=== PATIENT | female | born 1955 | race American Indian/Alaskan Native ===

== ENCOUNTER 2017-01-19 00:15 | Inpatient (IN) | payer MEDICAID, OTHER ==
[2017-01-19] MEDS ORDERED: DILAUDID IV ONE ×2 (01:16→03:03)
[2017-01-19] MEDS ORDERED: PROVENTIL IH ONE ×2 (01:23→06:13)
[2017-01-19] MEDS ORDERED: DILAUDID ONE (01:24)
[2017-01-19] MEDS ORDERED: ATROVENT IH ONE (01:24)
[2017-01-19 02:24] LABS: Basophils % (Auto) 0.4 % (0.0-1.8); Eosinophils % (Auto) 0.3 % (0.0-4.3); Hemoglobin 13.4 gm/dl (10.1-14.3); Mean Corpuscular HGB Conc 33 % (30-34); Mean Corpuscular Hemoglobin 29 pg (28-32); Mean Corpuscular Volume 88 fl (79-97); Platelet Count 209 K/mm3 (140-440); Red Blood Count 4.66 M/mm3 (3.65-5.03); Red Cell Distribution Width 14.7 % (13.2-15.2); White Blood Count 9.9 K/mm3 (4.5-11.0)
[2017-01-19 02:30] LABS: Alanine Aminotransferase 11 units/L (7-56); Albumin 4.4 g/dL (3.9-5); Albumin/Globulin Ratio 1.5 %; Alkaline Phosphatase 101 units/L (35-129); Anion Gap 17 mmol/L; BUN/Creatinine Ratio 17.14; Blood Urea Nitrogen 12 mg/dL (7-17); Calcium 8.9 mg/dL (8.4-10.2); Carbon Dioxide 23 mmol/L (22-30); Chloride 102.5 mmol/L (98-107); Glucose 142 mg/dL (65-100); Sodium 138 mmol/L (137-145); Total Protein 7.3 g/dL (6.3-8.2)
--- NOTE | 2017-01-19 03:25 | Emergency Department Report ---
ED General Adult HPI - General Chief complaint: Pain General Stated complaint: LEG AND BACK PAIN Time Seen by Provider: 01/19/17 01:16 Source: patient, family, EMS Mode of arrival: Stretcher Limitations: No Limitations - History of Present Illness Initial comments: Patient is a 62-year-old female who presents with severe shortness of breath. Patient states that her shortness of breath has occurred when she had some right lower quadrant pain that occurred one day ago. Patient states her right lower quadrant pain as a 10 out of 10 nothing makes it better nothing makes it worse. It says severe achy pain that goes throughout her stomach. Patient denies having any nausea or vomiting. Patient also states that she has end- stage COPD and is chronically on oxygen. She states that her shortness of breath is gone a lot worse today. Severity scale (0 -10): 10 - Related Data Home Medications Medication Instructions Recorded Confirmed Last Taken Cozaar 25 mg PO DAILY 07/14/15 07/14/15 01/18/17 Keppra TAB 1,000 mg PO BID 07/14/15 07/14/15 01/18/17 Nitrostat 0.4 mg SL Q5M PRN 07/14/15 07/14/15 Unknown Pepcid 20 mg PO DAILY 07/14/15 07/14/15 01/18/17 Percocet 10/325 mg 10 - 325 mg PO Q8H PRN 07/14/15 07/14/15 01/18/17 Prednisone 10 mg PO 07/14/15 Unknown ProAir HFA Inhaler 2 inh INHALATION QID PRN 07/14/15 07/14/15 01/18/17 SEROquel 200 mg PO HS 07/14/15 07/14/15 01/18/17 Symbicort 160-4.5 (Nf) 1 inh INHALATION BID 07/14/15 07/14/15 01/18/17 metFORMIN [Glucophage] 500 mg PO BID 07/14/15 07/14/15 01/18/17 Previous Rx's Medication Instructions Recorded Last Taken Type ALBUTEROL Inhaler [Proair] 1 puff IH BID PRN #1 inha 07/15/15 01/18/17 Rx Albuterol Sulfate [Albuterol 0.63% 0.63 mg IH TID PRN #1 box 07/15/15 01/18/17 Rx NEBS] Azithromycin [Zithromax TAB] 250 mg PO QDAY #6 tablet 07/15/15 Unknown Rx Ipratropium [Atrovent NEB] 0.5 mg IH Q8HRT PRN #1 box 07/15/15 01/18/17 Rx Nebulizer Accessories [Aeroneb Go] 1 each MC DAILY PRN #1 each 07/15/15 Rx Prednisone [predniSONE 10 mg 10 mg PO .TAPER #1 tab.ds.pk 07/15/15 01/18/17 Rx (6-Day Pack, 21 Tabs)] Allergies Allergy/AdvReac Type Severity Reaction Status Date / Time metronidazole [From Flagyl] Allergy Rash Verified 01/19/17 01:18 ED Review of Systems ROS: Stated complaint: LEG AND BACK PAIN Other details as noted in HPI Constitutional: denies: chills, fever Eyes: denies: eye pain, eye discharge, vision change ENT: denies: ear pain, throat pain Respiratory: shortness of breath. denies: cough, wheezing Cardiovascular: denies: chest pain, palpitations Endocrine: no symptoms reported Gastrointestinal: abdominal pain. denies: nausea, diarrhea Genitourinary: denies: urgency, dysuria, discharge Musculoskeletal: denies: back pain, joint swelling, arthralgia Skin: denies: rash, lesions Neurological: denies: headache, weakness, paresthesias Psychiatric: denies: anxiety, depression Hematological/Lymphatic: denies: easy bleeding, easy bruising ED Past Medical Hx - Past Medical History Previous Medical History?: Yes Hx Hypertension: Yes Hx Heart Attack/AMI: Yes Hx Congestive Heart Failure: Yes Hx Diabetes: Yes Hx Deep Vein Thrombosis: Yes Hx Pulmonary Embolism: No Hx Renal Disease: No Hx Seizures: Yes Hx Kidney Stones: No Hx Asthma: Yes Hx COPD: Yes Hx Tuberculosis: No Hx Dementia: No Hx HIV: No - Surgical History Hx Coronary Stent: No Hx Open Heart Surgery: No Hx Pacemaker: No Hx Internal Defibrillator: No Hx Cholecystectomy: No Hx Appendectomy: No Hx Breast Surgery: No Additional Surgical History: Hysterectomy, R mastectomy with implant, Lumbar spine surgery, chronic pain managment - Social History Smoking Status: Never Smoker Substance Use Type: None - Medications Home Medications: Home Medications Medication Instructions Recorded Confirmed Last Taken Type Cozaar 25 mg PO DAILY 07/14/15 07/14/15 01/18/17 History Keppra TAB 1,000 mg PO BID 07/14/15 07/14/15 01/18/17 History Nitrostat 0.4 mg SL Q5M PRN 07/14/15 07/14/15 Unknown History Pepcid 20 mg PO DAILY 07/14/15 07/14/15 01/18/17 History Percocet 10/325 mg 10 - 325 mg PO Q8H PRN 07/14/15 07/14/15 01/18/17 History Prednisone 10 mg PO 07/14/15 Unknown History ProAir HFA Inhaler 2 inh INHALATION QID PRN 07/14/15 07/14/15 01/18/17 History SEROquel 200 mg PO HS 07/14/15 07/14/15 01/18/17 History Symbicort 160-4.5 (Nf) 1 inh INHALATION BID 07/14/15 07/14/15 01/18/17 History metFORMIN [Glucophage] 500 mg PO BID 07/14/15 07/14/15 01/18/17 History ALBUTEROL Inhaler [Proair] 1 puff IH BID PRN #1 inha 07/15/15 01/18/17 Rx Albuterol Sulfate [Albuterol 0.63% 0.63 mg IH TID PRN #1 box 07/15/15 01/18/17 Rx NEBS] Azithromycin [Zithromax TAB] 250 mg PO QDAY #6 tablet 07/15/15 Unknown Rx Ipratropium [Atrovent NEB] 0.5 mg IH Q8HRT PRN #1 box 07/15/15 01/18/17 Rx Nebulizer Accessories [Aeroneb Go] 1 each MC DAILY PRN #1 each 07/15/15 Rx Prednisone [predniSONE 10 mg 10 mg PO .TAPER #1 tab.ds.pk 07/15/15 01/18/17 Rx (6-Day Pack, 21 Tabs)] ED Physical Exam - General Limitations: No Limitations General appearance: alert, in no apparent distress - Head Head exam: Present: atraumatic, normocephalic - Eye Eye exam: Present: normal appearance - ENT ENT exam: Present: mucous membranes moist - Neck Neck exam: Present: normal inspection - Respiratory Respiratory exam: Present: wheezes. Absent: respiratory distress - Cardiovascular Cardiovascular Exam: Present: regular rate, normal rhythm. Absent: systolic murmur, diastolic murmur, rubs, gallop - GI/Abdominal GI/Abdominal exam: Present: soft, normal bowel sounds - Extremities Exam Extremities exam: Present: normal inspection - Back Exam Back exam: Present: normal inspection - Neurological Exam Neurological exam: Present: alert, oriented X3 - Psychiatric Psychiatric exam: Present: normal affect, normal mood - Skin Skin exam: Present: warm, dry, intact, normal color. Absent: rash ED Course Vital Signs 01/19/17 01/19/17 01/19/17 01:06 01:10 01:38 Temperature 98.2 F Pulse Rate 87 Pulse Rate [ 95 H Bilateral Throughout] Respiratory 20 Rate Respiratory 15 Rate [Bilateral Throughout] Blood Pressure 168/87 Blood Pressure 168/87 [Left] O2 Sat by Pulse 100 100 Oximetry 01/19/17 03:26 Temperature Pulse Rate 80 Pulse Rate [ Bilateral Throughout] Respiratory 20 Rate Respiratory Rate [Bilateral Throughout] Blood Pressure Blood Pressure 156/90 [Left] O2 Sat by Pulse 100 Oximetry - Reevaluation(s) Reevaluation #1: 01/19/17 05:50 Patient still states that she is in severe pain the patient IV pain medication and I'll admit patient to the hospital. ED Medical Decision Making - Lab Data Result diagrams: 01/19/17 01:54 01/19/17 01:54 Lab Results 01/19/17 01/19/17 01/19/17 Range/Units 01:54 01:54 Unknown WBC 9.9 (4.5-11.0) K/mm3 RBC 4.66 (3.65-5.03) M/mm3 Hgb 13.4 (10.1-14.3) gm/dl Hct 41.0 (30.3-42.9) % MCV 88 (79-97) fl MCH 29 (28-32) pg MCHC 33 (30-34) % RDW 14.7 (13.2-15.2) % Plt Count 209 (140-440) K/mm3 Lymph % (Auto) 12.7 L (13.4-35.0) % [place] % (Auto) 2.5 (0.0-7.3) % Eos % (Auto) 0.3 (0.0-4.3) % Baso % (Auto) 0.4 (0.0-1.8) % Lymph # 1.3 (1.2-5.4) K/mm3 [place] # 0.3 (0.0-0.8) K/mm3 Eos # 0.0 (0.0-0.4) K/mm3 Baso # 0.0 (0.0-0.1) K/mm3 Seg Neutrophils % 84.1 H (40.0-70.0) % Seg Neutrophils # 8.3 H (1.8-7.7) K/mm3 Sodium 138 (137-145) mmol/L Potassium 4.0 (3.6-5.0) mmol/L Chloride 102.5 (98-107) mmol/L Carbon Dioxide 23 (22-30) mmol/L Anion Gap 17 mmol/L BUN 12 (7-17) mg/dL Creatinine 0.7 (0.7-1.2) mg/dL Estimated GFR > 60 ml/min BUN/Creatinine Ratio 17.14 % Glucose 142 H (65-100) mg/dL Calcium 8.9 (8.4-10.2) mg/dL Total Bilirubin 0.50 (0.1-1.2) mg/dL AST 10 (5-40) units/L ALT 11 (7-56) units/L Alkaline Phosphatase 101 (35-129) units/L Total Protein 7.3 (6.3-8.2) g/dL Albumin 4.4 (3.9-5) g/dL Albumin/Globulin Ratio 1.5 % Urine Color Straw (Yellow) Urine Turbidity Clear (Clear) Urine pH 6.0 (5.0-7.0) Ur Specific [place] 1.011 (1.003-1.030) Urine Protein <15 mg/dl (Negative) mg/dL Urine Glucose (UA) Neg (Negative) mg/dL Urine Ketones Neg (Negative) mg/dL Urine Blood Neg (Negative) Urine Nitrite Neg (Negative) Urine Bilirubin Neg (Negative) Urine Urobilinogen < 2.0 (<2.0) mg/dL Ur Leukocyte Esterase Neg (Negative) Urine WBC (Auto) < 1.0 (0.0-6.0) /HPF Urine RBC (Auto) < 1.0 (0.0-6.0) /HPF Urine Mucus Few /HPF - Radiology Data Radiology results: report reviewed, image reviewed CT abdomen and pelvis: Shows no acute intra-abdominal pathology. - Medical Decision Making Chief medical diagnosis: COPD exacerbation Differential diagnosis: Appendicitis, pancreatitis, metabolic abnormality I will get CT scan of abdomen and pelvis, IV pain medication, breathing treatment, steroids, chest x-ray and I will admit patient to the medicine service Symptoms clinical findings show severe pain of the abdomen with no cause. CT scan of abdomen is unremarkable. Patient also has severe shortness of breath. Will admit patient for COPD exacerbation. Discussed plan with patient they agree with plan. Critical care attestation.: If time is entered above; I have spent that time in minutes in the direct care of this critically ill patient, excluding procedure time. ED Disposition Clinical Impression: COPD exacerbation, Drug-seeking behavior Abdominal pain Qualifiers: Abdominal location: right lower quadrant Qualified Code(s): R10.31 - Right lower quadrant pain HTN (hypertension) Qualifiers: Hypertension type: essential hypertension Qualified Code(s): I10 - Essential ( primary) hypertension Diabetes mellitus, type 2 Qualifiers: Diabetes mellitus complication status: without complication Diabetes mellitus intermediate teacher insulin use: unspecified long-term insulin use status Qualified Code(s ): E11.9 - Type 2 diabetes mellitus without complications Disposition: OP ADMIT IP TO THIS HOSP Is pt being admited?: No Does the pt Need Aspirin: No Condition: Stable Instructions: Diabetes Mellitus Type 2 in Adults (ED), Chronic Obstructive Pulmonary Disease (ED), Hypertension (ED) Referrals: PRIMARY CARE, [Primary Care Provider] - 3-5 Days
[2017-01-19] MEDS ORDERED: NACL ONE (03:56)
[2017-01-19 04:59] LABS: Bilirubin,Urine NEG (Negative); Blood,Urine NEG (Negative); Ketones,Urine NEG (Negative); Leukocyte Esterase,Urine NEG (Negative); Mucus,Urine FEW /HPF; Nitrite,Urine NEG (Negative); Protein,Urine <15 mg/dL mg/dL (Negative); RBC,Urine < 1.0 /HPF (0.0-6.0); Urobilinogen,Urine < 2.0 mg/dL (<2.0)
[2017-01-19 05:01] LABS: WBC,Urine < 1.0 /HPF (0.0-6.0)
--- NOTE | 2017-01-19 05:20 | Cat Scan Report ---
FINAL REPORT PROCEDURE: CT ABDOMEN PELVIS W CON TECHNIQUE: Computerized axial tomography of the abdomen and pelvis was performed after the IV injection of iodinated nonionic contrast. HISTORY: RLQ abd pain COMPARISON: No prior studies are available for comparison. FINDINGS: Visualized lower thorax: No significant abnormality. Liver: Normal size and attenuation. Spleen: Normal size and attenuation. Gallbladder and biliary system: Normal. Pancreas: Normal. Adrenals: Normal. Kidneys: Both kidneys have a normal size. There is a 1 centimeter cyst on the anterior left renal cortex. No hydronephrosis. No renal stones.. GI tract: No obstruction. No ileus or enteritis. The cecum, appendix region and colon are normal.. Lymph nodes and mesentery: Normal. Vasculature: Normal. Bladder: Normal. Reproductive organs: No pelvic masses.. Peritoneum: Minimal fluid in the lower pelvis.. Musculoskeletal structures: No significant abnormality. Other: None. IMPRESSION: There is no evidence of intestinal or urinary tract obstruction. No ileus or enteritis.
[2017-01-19] MEDS ORDERED: ZOFRAN IV PRN (06:16)
[2017-01-19] MEDS ORDERED: MILK OF MAGNESIA PO PRN (06:16)
[2017-01-19] MEDS ORDERED: DULCOLAX PR PRN (06:16)
[2017-01-19] MEDS ORDERED: PERCOCET 5/325 PO PRN (06:16)
[2017-01-19] MEDS ORDERED: TYLENOL PO PRN (06:16)
--- NOTE | 2017-01-19 06:24 | History and Physical Report ---
History of Present Illness Date of examination: 01/19/17 History of present illness: 62-year-old with a history of hypertension, diabetes, seizures, COPD comes to the emergency room with complaints of shortness of breath. She ran out of her oxygen, also complaining of a cough productive of white phlegm. She also complained of pain in the right groin area which started yesterday described as a crampy sensation, intermittent in nature lasting for 2 hours, intensity 6/10, no radiation and she cannot identify any exacerbating factors. The patient has a history of breast cancer and has been off hospice for 1 month now Review Of Systems: Constitutional: no weight loss Ears, eyes, nose, mouth and throat: no nasal congestion, no nasal discharge, no sinus pressure, blurry vision, diplopia Neck: No neck pain or rigidity. Cardiovascular: chest pain, orthopnea, palpitations Respiratory: No shortness of breath, cough Gastrointestinal: abdominal pain, hematochezia Genitourinary : no dysuria, frequency , hematuria Musculoskeletal: no muscle ache Integumentary: no rash, no pruritis Neurological: no parathesias, focal weakness Endocrine: no cold or heat intolerance, no polyuria or polydipsia Hematologic/Lymphatic: no easy bruising, no easy bleeding, no gland swelling Allergic/Immunologic: no urticaria, no angioedema. PAST MEDICAL HISTORY:hypertension, diabetes, seizures, COPD PAST SURGICAL HISTORY: Right mastectomy with reconstruction, laminectomy, hysterectomy FAMILY HISTORY: Hypertension SOCIAL HISTORY: Denies alcohol, tobacco, drugs Medications and Allergies Allergies Allergy/AdvReac Type Severity Reaction Status Date / Time metronidazole [From Flagyl] Allergy Rash Verified 01/19/17 01:18 Home Medications Medication Instructions Recorded Confirmed Last Taken Type Cozaar 25 mg PO DAILY 07/14/15 07/14/15 01/18/17 History Keppra TAB 1,000 mg PO BID 07/14/15 07/14/15 01/18/17 History Nitrostat 0.4 mg SL Q5M PRN 07/14/15 07/14/15 Unknown History Pepcid 20 mg PO DAILY 07/14/15 07/14/15 01/18/17 History Percocet 10/325 mg 10 - 325 mg PO Q8H PRN 07/14/15 07/14/15 01/18/17 History Prednisone 10 mg PO 07/14/15 Unknown History ProAir HFA Inhaler 2 inh INHALATION QID PRN 07/14/15 07/14/15 01/18/17 History SEROquel 200 mg PO HS 07/14/15 07/14/15 01/18/17 History Symbicort 160-4.5 (Nf) 1 inh INHALATION BID 07/14/15 07/14/15 01/18/17 History metFORMIN [Glucophage] 500 mg PO BID 07/14/15 07/14/15 01/18/17 History ALBUTEROL Inhaler [Proair] 1 puff IH BID PRN #1 inha 07/15/15 01/18/17 Rx Albuterol Sulfate [Albuterol 0.63% 0.63 mg IH TID PRN #1 box 07/15/15 01/18/17 Rx NEBS] Azithromycin [Zithromax TAB] 250 mg PO QDAY #6 tablet 07/15/15 Unknown Rx Ipratropium [Atrovent NEB] 0.5 mg IH Q8HRT PRN #1 box 07/15/15 01/18/17 Rx Nebulizer Accessories [Aeroneb Go] 1 each MC DAILY PRN #1 each 07/15/15 Rx Prednisone [predniSONE 10 mg 10 mg PO .TAPER #1 tab.ds.pk 07/15/15 01/18/17 Rx (6-Day Pack, 21 Tabs)] Exam - Physical Exam Narrative exam: Gen. appearance: Patient lying in bed in no acute distress HEENT: Normocephalic/atraumatic, pupils equal round reactive to light, extra alkaline movement intact, no scleral icterus, no JVD or thyromegaly or nodule, neck is supple, mucous membrane moist, no erythema or exudate Heart: S1-S2, regular rate and rhythm Lungs: Wheezing bilateral breathing comfortable Abdomen: Positive bowel sounds, nontender, nondistended, no organomegaly Extremities: No edema, cyanosis, clubbing Neuro:: Oriented 3 , cranial nerves II-12 intact, speech, motor intact Skin: No rash, nodules, warm dry - Constitutional Vitals: Temp Pulse Resp BP Pulse Ox 98.2 F 108 H 22 145/80 100 01/19/17 01:06 01/19/17 06:18 01/19/17 06:18 01/19/17 06:18 01/19/17 06:18 Results - Labs CBC & Chem 7: 01/19/17 01:54 01/19/17 01:54 Labs: Abnormal lab results 01/19/17 01/19/17 Range/Units 01:54 01:54 Lymph % (Auto) 12.7 L (13.4-35.0) % Seg Neutrophils % 84.1 H (40.0-70.0) % Seg Neutrophils # 8.3 H (1.8-7.7) K/mm3 Glucose 142 H (65-100) mg/dL - Imaging and Cardiology CT scan - abdomen: report reviewed CT scan - pelvis: report reviewed Assessment and Plan Assessment COPD exacerbation Right groin pain, NOS Hypertension Seizure Diabetes History of breast cancer Plan Admit to medicine Start high-dose IV steroids, nebulizer treatments, Percocet Check fingersticks and initiate insulin sliding scale, continue appropriate outpatient medications, start DVT prophylaxis
[2017-01-19] MEDS ORDERED: D50W (25GM) Syringe IV PRN (06:27)
--- NOTE | 2017-01-19 07:19 | XRay Report ---
AP CHEST: HISTORY: Shortness of breath AP view of the chest demonstrates a normal mediastinal and cardiac contour with clear lungs and normal bony and soft tissue structures. IMPRESSION: No acute cardiopulmonary process identified.
--- NOTE | 2017-01-19 07:29 | Admit Criteria Form ---
Admission Criteria Documentation: COPD Clinical Indications for Admission to Inpatient Care ([place]/ check or initial the applicable condition/criteria) Admission is indicated for ANY ONE of the following (1)(2)(3): [ ]I. Acute exacerbation by high-risk comorbidity(e.g., pneumonia, dysrhythmia, heart failure, pleural effusion, pneumothorax) or severe underlying COPD (eg, baseline FEV1 less than 50% predicted) [X ]II. Inpatient admission required[A] rather than observation care (see Chronic Obstructive Pulmonary Disease: Observation Care) because of ANY ONE of the following: [X ]a) New or pre-existing signs or symptoms of COPD (eg, dyspnea or Tachypnea at rest or with minimal activity) that persist despite outpatient and observation care treatment [ ]b) New-onset hypoxemia (room air SaO2 less than 90%, PO2 less than 60 mm Hg (8.0 kPa)) that persists despite outpatient and observation care treatment [ ]c) Worsening of pre-existing hypoxemia (eg, new or increased requirement for supplemental oxygen to maintain oxygenation at baseline level) that persists despite outpatient and observation care treatment, with oxygen treatment needs performable only in acute inpatient setting [ ]d) Hypercarbia (PCO2 greater than 40 mm Hg (5.3 kPa))-induced respiratory acidosis (pH less than 7.35) that persists despite outpatient and observation care treatment [ ]e) Supplemental oxygen or respiratory treatments for over 24 hours that are performable only in acute inpatient setting [ ]f) Chest tube placement with active evacuation (e.g., suction, drainage) (6) [ ]g) Other condition, treatment or monitoring requiring inpatient admission [ ]III. Planned invasive surgical or diagnostic procedures requiring acute- care hospitalization [ ]IV. Acute respiratory failure (e.g., uncompensated hypercarbia, severe hypoxemia) [ ]V. Severe comorbid condition (e.g., severe steroid myopathy, acute vertebral fracture) that has acutely worsened pulmonary function [ ]. Altered mental status that is severe or persistent Extended stay beyond goal length of stay may be needed for (29)(30)(31)(32)(33) : [ ]a ) Respiratory Failure. [ ]b) Severe or persisting hypoxemia or hypercarbia [ ]c) Severe or persistent dyspnea [ ]d) Clinically significant Comorbidities (e.g. chronic heart failure, atrial fibrillation with rapid response, pneumonia)(36) [ ]e) Malnutrition (33) The original [email or web address] content created by [email or web address] has been revised. The portions of the content which have been revised are identified through the use of italic text or in bold, and [facility] has neither reviewed nor approved the modified material. All other unmodified content is copyright [email or web address]. Please see references footnoted in the original [facility] edition 2017 Admission Criteria Met: Yes
[2017-01-19] MEDS: NOVOLOG SUB-Q SCH ×4 (08:10→22:44)
[2017-01-19] MEDS: DUONEB *Not for PRN Use IH SCH ×4 (08:56→20:19)
[2017-01-19] MEDS ORDERED: LOVENOX SUB-Q SCH (10:00)
[2017-01-19] MEDS: LOVENOX SUB-Q SCH (10:25)
[2017-01-19] MEDS: PERCOCET 5/325 PO PRN ×2 (12:45→21:09)
[2017-01-19] MEDS ORDERED: PROVENTIL IH PRN (13:07)
--- NOTE | 2017-01-19 14:59 | Event Note ---
Date: 01/19/17 Patient was seen and evaluated this morning, she is admitted for COPD exacerbation and right groin pain. CT abdomen and pelvis is unremarkable. Continue with the current management.
[2017-01-19] MEDS ORDERED: DUONEB *Not for PRN Use IH SCH (20:00)
[2017-01-19] MEDS ORDERED: BENADRYL IV ONE (21:42)
[2017-01-20] MEDS: DUONEB *Not for PRN Use IH SCH ×5 (00:16→20:43)
[2017-01-20] MEDS: PERCOCET 5/325 PO PRN ×4 (02:43→21:25)
[2017-01-20 04:51] LABS: Hematocrit 38.1 % (30.3-42.9); Hemoglobin 12.5 gm/dl (10.1-14.3); Mean Corpuscular HGB Conc 33 % (30-34); Mean Corpuscular Hemoglobin 29 pg (28-32); Mean Corpuscular Volume 88 fl (79-97); Platelet Count 213 K/mm3 (140-440); Red Blood Count 4.34 M/mm3 (3.65-5.03); Red Cell Distribution Width 14.2 % (13.2-15.2); White Blood Count 11.2 K/mm3 (4.5-11.0)
[2017-01-20 04:54] LABS: Anion Gap 20 mmol/L; BUN/Creatinine Ratio 17.14; Blood Urea Nitrogen 12 mg/dL (7-17); Calcium 8.7 mg/dL (8.4-10.2); Carbon Dioxide 22 mmol/L (22-30); Chloride 101.8 mmol/L (98-107); Glucose 333 mg/dL (65-100); Potassium 3.7 mmol/L (3.6-5.0); Sodium 140 mmol/L (137-145)
[2017-01-20] MEDS: NOVOLOG SUB-Q SCH ×3 (06:45→22:00)
[2017-01-20 06:58] LABS: Basophils % (Manual) 0 % (0.0-1.8); Blastocytes % (Manual) 0 %; Eosinophils % (Manual) 0 % (0.0-4.3); Total Cells Counted Percent 0
[2017-01-20 06:59] LABS: Anisocytosis Few; Diff Status Complete; Hypochromasia 1+; Ovalocytes Few
[2017-01-20] MEDS: LOVENOX SUB-Q SCH (09:23)
--- NOTE | 2017-01-20 11:45 | Progress Note ---
Assessment and Plan Assessment and plan: Acute COPD exacerbation. Continue IV steroids, nebulizer treatments Right groin pain. Resolved. CT scan abdomen and pelvis negative. Hypertension. Continue antihypertensive medications. Cozaar daily. Seizure disorder. Resume Keppra daily. Diabetes mellitus type II. Residual metformin and continue sliding-scale insulin. History of breast cancer. History Interval history: Patient with dyspnea on minimal exertion. Hospitalist Physical - Constitutional Vitals: Temp Pulse Resp BP Pulse Ox 98.0 F 112 H 24 136/72 98 01/20/17 08:29 01/20/17 08:29 01/20/17 08:29 01/20/17 08:29 01/20/17 08:58 General appearance: Present: no acute distress, well-nourished - EENT Eyes: Present: PERRL, EOM intact ENT: hearing intact, clear oral mucosa, dentition normal - Neck Neck: Present: supple, normal ROM - Respiratory Respiratory effort: normal Respiratory: bilateral: diminished, rhonchi, wheezing - Cardiovascular Rhythm: regular Heart Sounds: Present: S1 & S2. Absent: gallop, rub - Extremities Extremities: no ischemia, No edema, Full ROM - Abdominal General gastrointestinal: soft, non-tender, non-distended, normal bowel sounds - Integumentary Integumentary: Present: clear, warm, dry - Neurologic Neurologic: CNII-XII intact, moves all extremities Results - Labs CBC & Chem 7: 01/20/17 04:18 01/20/17 04:18 Labs: Laboratory Last Values WBC 11.2 K/mm3 (4.5-11.0) H 01/20/17 04:18 RBC 4.34 M/mm3 (3.65-5.03) 01/20/17 04:18 Hgb 12.5 gm/dl (10.1-14.3) 01/20/17 04:18 Hct 38.1 % (30.3-42.9) 01/20/17 04:18 MCV 88 fl (79-97) 01/20/17 04:18 MCH 29 pg (28-32) 01/20/17 04:18 MCHC 33 % (30-34) 01/20/17 04:18 RDW 14.2 % (13.2-15.2) 01/20/17 04:18 Plt Count 213 K/mm3 (140-440) 01/20/17 04:18 Lymph % (Auto) 12.7 % (13.4-35.0) L 01/19/17 01:54 Howard % (Auto) 2.5 % (0.0-7.3) 01/19/17 01:54 Eos % (Auto) 0.3 % (0.0-4.3) 01/19/17 01:54 Baso % (Auto) 0.4 % (0.0-1.8) 01/19/17 01:54 Lymph # 1.3 K/mm3 (1.2-5.4) 01/19/17 01:54 Howard # 0.3 K/mm3 (0.0-0.8) 01/19/17 01:54 Eos # 0.0 K/mm3 (0.0-0.4) 01/19/17 01:54 Baso # 0.0 K/mm3 (0.0-0.1) 01/19/17 01:54 Add Manual Diff Complete 01/20/17 04:18 Total Counted 100 01/20/17 04:18 Seg Neutrophils % Electrician Station Assistant 01/20/17 04:18 Seg Neuts % (Manual) 68.0 % (40.0-70.0) 01/20/17 04:18 Band Neutrophils % 26.0 % 01/20/17 04:18 Lymphocytes % (Manual) 6.0 % (13.4-35.0) L 01/20/17 04:18 Reactive Lymphs % (Man) 0 % 01/20/17 04:18 Monocytes % (Manual) 0 % (0.0-7.3) 01/20/17 04:18 Eosinophils % (Manual) 0 % (0.0-4.3) 01/20/17 04:18 Basophils % (Manual) 0 % (0.0-1.8) 01/20/17 04:18 Metamyelocytes % 0 % 01/20/17 04:18 Myelocytes % 0 % 01/20/17 04:18 Promyelocytes % 0 % 01/20/17 04:18 Blast Cells % 0 % 01/20/17 04:18 Nucleated RBC % Not Reportable 01/20/17 04:18 Seg Neutrophils # 8.3 K/mm3 (1.8-7.7) H 01/19/17 01:54 Seg Neutrophils # Man 7.6 K/mm3 (1.8-7.7) 01/20/17 04:18 Band Neutrophils # 2.9 K/mm3 01/20/17 04:18 Lymphocytes # (Manual) 0.7 K/mm3 (1.2-5.4) L 01/20/17 04:18 Abs React Lymphs (Man) 0.0 K/mm3 01/20/17 04:18 Monocytes # (Manual) 0.0 K/mm3 (0.0-0.8) 01/20/17 04:18 Eosinophils # (Manual) 0.0 K/mm3 (0.0-0.4) 01/20/17 04:18 Basophils # (Manual) 0.0 K/mm3 (0.0-0.1) 01/20/17 04:18 Metamyelocytes # 0.0 K/mm3 01/20/17 04:18 Myelocytes # 0.0 K/mm3 01/20/17 04:18 Promyelocytes # 0.0 K/mm3 01/20/17 04:18 Blast Cells # 0.0 K/mm3 01/20/17 04:18 WBC Morphology Not Reportable 01/20/17 04:18 Hypersegmented Neuts Not Reportable 01/20/17 04:18 Hyposegmented Neuts Not Reportable 01/20/17 04:18 Hypogranular Neuts Not Reportable 01/20/17 04:18 Smudge Cells Not Reportable 01/20/17 04:18 Toxic Granulation Not Reportable 01/20/17 04:18 Toxic Vacuolation Not Reportable 01/20/17 04:18 Dohle Bodies Not Reportable 01/20/17 04:18 Pelger-Huet Anomaly Not Reportable 01/20/17 04:18 Varinder Rods Not Reportable 01/20/17 04:18 Platelet Estimate Appears normal 01/20/17 04:18 Clumped Platelets Not Reportable 01/20/17 04:18 Plt Clumps, EDTA Not Reportable 01/20/17 04:18 Large Platelets Not Reportable 01/20/17 04:18 Giant Platelets Not Reportable 01/20/17 04:18 Platelet Satelliting Not Reportable 01/20/17 04:18 Plt Morphology Comment Not Reportable 01/20/17 04:18 RBC Morphology Not Reportable 01/20/17 04:18 Dimorphic RBCs Not Reportable 01/20/17 04:18 Polychromasia Not Reportable 01/20/17 04:18 Hypochromasia 1+ 01/20/17 04:18 Poikilocytosis Not Reportable 01/20/17 04:18 Anisocytosis Few 01/20/17 04:18 Microcytosis Not Reportable 01/20/17 04:18 Macrocytosis Not Reportable 01/20/17 04:18 Spherocytes Not Reportable 01/20/17 04:18 Pappenheimer Bodies Not Reportable 01/20/17 04:18 Sickle Cells Not Reportable 01/20/17 04:18 Target Cells Not Reportable 01/20/17 04:18 Tear Drop Cells Not Reportable 01/20/17 04:18 Ovalocytes Few 01/20/17 04:18 Helmet Cells Not Reportable 01/20/17 04:18 [place] Bodies Not Reportable 01/20/17 04:18 [place] Rings Not Reportable 01/20/17 04:18 Ammy Cells Not Reportable 01/20/17 04:18 Bite Cells Not Reportable 01/20/17 04:18 Crenated Cell Not Reportable 01/20/17 04:18 Elliptocytes Not Reportable 01/20/17 04:18 Acanthocytes (Spur) Not Reportable 01/20/17 04:18 Rouleaux Not Reportable 01/20/17 04:18 Hemoglobin C Crystals Not Reportable 01/20/17 04:18 Schistocytes Not Reportable 01/20/17 04:18 Malaria parasites Not Reportable 01/20/17 04:18 Robert Bodies Not Reportable 01/20/17 04:18 Hem Pathologist Commnt No 01/20/17 04:18 Sodium 140 mmol/L (137-145) 01/20/17 04:18 Potassium 3.7 mmol/L (3.6-5.0) 01/20/17 04:18 Chloride 101.8 mmol/L (98-107) 01/20/17 04:18 Carbon Dioxide 22 mmol/L (22-30) 01/20/17 04:18 Anion Gap 20 mmol/L 01/20/17 04:18 BUN 12 mg/dL (7-17) 01/20/17 04:18 Creatinine 0.7 mg/dL (0.7-1.2) 01/20/17 04:18 Estimated GFR > 60 ml/min 01/20/17 04:18 BUN/Creatinine Ratio 17.14 % 01/20/17 04:18 Glucose 333 mg/dL (65-100) H 01/20/17 04:18 POC Glucose 327 (70-105) H 01/20/17 05:11 Calcium 8.7 mg/dL (8.4-10.2) 01/20/17 04:18 Total Bilirubin 0.50 mg/dL (0.1-1.2) 01/19/17 01:54 AST 10 units/L (5-40) 01/19/17 01:54 ALT 11 units/L (7-56) 01/19/17 01:54 Alkaline Phosphatase 101 units/L (35-129) 01/19/17 01:54 Total Protein 7.3 g/dL (6.3-8.2) 01/19/17 01:54 Albumin 4.4 g/dL (3.9-5) 01/19/17 01:54 Albumin/Globulin Ratio 1.5 % 01/19/17 01:54 Urine Color Straw (Yellow) 01/19/17 Unknown Urine Turbidity Clear (Clear) 01/19/17 Unknown Urine pH 6.0 (5.0-7.0) 01/19/17 Unknown Ur Specific [place] 1.011 (1.003-1.030) 01/19/17 Unknown Urine Protein <15 mg/dl mg/dL (Negative) 01/19/17 Unknown Urine Glucose (UA) Neg mg/dL (Negative) 01/19/17 Unknown Urine Ketones Neg mg/dL (Negative) 01/19/17 Unknown Urine Blood Neg (Negative) 01/19/17 Unknown Urine Nitrite Neg (Negative) 01/19/17 Unknown Urine Bilirubin Neg (Negative) 01/19/17 Unknown Urine Urobilinogen < 2.0 mg/dL (<2.0) 01/19/17 Unknown Ur Leukocyte Esterase Neg (Negative) 01/19/17 Unknown Urine WBC (Auto) < 1.0 /HPF (0.0-6.0) 01/19/17 Unknown Urine RBC (Auto) < 1.0 /HPF (0.0-6.0) 01/19/17 Unknown Urine Mucus Few /HPF 01/19/17 Unknown
[2017-01-20] MEDS ORDERED: PNEUMOVAX 23 IM ONE (12:00)
[2017-01-20] MEDS ORDERED: Fluarix Quad 2017-2018(36 MOS+) IM ONE (12:00)
[2017-01-20] MEDS: BROVANA NEBU IH SCH ×2 (12:50→21:25)
[2017-01-20] MEDS: PULMICORT IH SCH ×2 (12:50→21:26)
[2017-01-20] MEDS: COZAAR PO SCH (15:10)
[2017-01-20] MEDS: KEPPRA PO SCH ×2 (15:11→21:24)
[2017-01-20] MEDS: GLUCOPHAGE PO SCH (19:11)
[2017-01-20] MEDS: BENADRYL PO PRN (21:26)
[2017-01-20] MEDS ORDERED: KEPPRA 1000 MG PO SCH (22:00)
[2017-01-20] MEDS ORDERED: SYMBICORT INHALATION SCH (22:00)
[2017-01-20] MEDS ORDERED: KEPPRA PO SCH (22:00)
[2017-01-20] MEDS ORDERED: NON-FORMULARY (Seroquel 200 MG) PO SCH (22:00)
[2017-01-21] MEDS: DUONEB *Not for PRN Use IH SCH ×4 (02:39→19:29)
[2017-01-21] MEDS: PERCOCET 5/325 PO PRN ×3 (06:04→21:19)
[2017-01-21] MEDS: NOVOLOG SUB-Q SCH ×4 (08:27→16:57)
[2017-01-21] MEDS: PULMICORT IH SCH ×2 (09:23→19:28)
[2017-01-21] MEDS: BROVANA NEBU IH SCH ×2 (09:24→19:28)
[2017-01-21] MEDS: KEPPRA PO SCH ×2 (09:45→21:11)
[2017-01-21] MEDS: LOVENOX SUB-Q SCH (09:46)
[2017-01-21] MEDS: GLUCOPHAGE PO SCH ×2 (09:46→16:56)
[2017-01-21] MEDS: COZAAR PO SCH (09:51)
[2017-01-21] MEDS ORDERED: COZAAR PO SCH ×2 (10:00)
--- NOTE | 2017-01-21 10:06 | Progress Note ---
Assessment and Plan Assessment and plan: Acute COPD exacerbation. Continue IV steroids, nebulizer treatments Right groin pain. Resolved. CT scan abdomen and pelvis negative. Hypertension. Continue antihypertensive medications. Cozaar daily. Seizure disorder. Continue Keppra daily. Diabetes mellitus type II. Continued metformin and continue sliding-scale insulin. History of breast cancer. History Interval history: Patient with dyspnea on minimal exertion. Hospitalist Physical - Constitutional Vitals: Temp Pulse Resp BP Pulse Ox 97.7 F 102 H 16 140/61 96 01/21/17 08:00 01/21/17 09:51 01/21/17 09:24 01/21/17 09:51 01/21/17 08:00 General appearance: Present: no acute distress, well-nourished - EENT Eyes: Present: PERRL, EOM intact ENT: hearing intact, clear oral mucosa, dentition normal - Neck Neck: Present: supple, normal ROM - Respiratory Respiratory effort: normal Respiratory: bilateral: diminished, wheezing - Cardiovascular Rhythm: regular Heart Sounds: Present: S1 & S2. Absent: gallop, rub - Extremities Extremities: no ischemia, No edema, Full ROM - Abdominal General gastrointestinal: soft, non-tender, non-distended, normal bowel sounds - Integumentary Integumentary: Present: clear, warm, dry - Neurologic Neurologic: CNII-XII intact, moves all extremities Results - Labs CBC & Chem 7: 01/20/17 04:18 01/20/17 04:18 Labs: Laboratory Last Values WBC 11.2 K/mm3 (4.5-11.0) H 01/20/17 04:18 RBC 4.34 M/mm3 (3.65-5.03) 01/20/17 04:18 Hgb 12.5 gm/dl (10.1-14.3) 01/20/17 04:18 Hct 38.1 % (30.3-42.9) 01/20/17 04:18 MCV 88 fl (79-97) 01/20/17 04:18 MCH 29 pg (28-32) 01/20/17 04:18 MCHC 33 % (30-34) 01/20/17 04:18 RDW 14.2 % (13.2-15.2) 01/20/17 04:18 Plt Count 213 K/mm3 (140-440) 01/20/17 04:18 Lymph % (Auto) 12.7 % (13.4-35.0) L 01/19/17 01:54 [place] % (Auto) 2.5 % (0.0-7.3) 01/19/17 01:54 Eos % (Auto) 0.3 % (0.0-4.3) 01/19/17 01:54 Baso % (Auto) 0.4 % (0.0-1.8) 01/19/17 01:54 Lymph # 1.3 K/mm3 (1.2-5.4) 01/19/17 01:54 [place] # 0.3 K/mm3 (0.0-0.8) 01/19/17 01:54 Eos # 0.0 K/mm3 (0.0-0.4) 01/19/17 01:54 Baso # 0.0 K/mm3 (0.0-0.1) 01/19/17 01:54 Add Manual Diff Complete 01/20/17 04:18 Total Counted 100 01/20/17 04:18 Seg Neutrophils % Intelligence Specialist 01/20/17 04:18 Seg Neuts % (Manual) 68.0 % (40.0-70.0) 01/20/17 04:18 Band Neutrophils % 26.0 % 01/20/17 04:18 Lymphocytes % (Manual) 6.0 % (13.4-35.0) L 01/20/17 04:18 Reactive Lymphs % (Man) 0 % 01/20/17 04:18 Monocytes % (Manual) 0 % (0.0-7.3) 01/20/17 04:18 Eosinophils % (Manual) 0 % (0.0-4.3) 01/20/17 04:18 Basophils % (Manual) 0 % (0.0-1.8) 01/20/17 04:18 Metamyelocytes % 0 % 01/20/17 04:18 Myelocytes % 0 % 01/20/17 04:18 Promyelocytes % 0 % 01/20/17 04:18 Blast Cells % 0 % 01/20/17 04:18 Nucleated RBC % Not Reportable 01/20/17 04:18 Seg Neutrophils # 8.3 K/mm3 (1.8-7.7) H 01/19/17 01:54 Seg Neutrophils # Man 7.6 K/mm3 (1.8-7.7) 01/20/17 04:18 Band Neutrophils # 2.9 K/mm3 01/20/17 04:18 Lymphocytes # (Manual) 0.7 K/mm3 (1.2-5.4) L 01/20/17 04:18 Abs React Lymphs (Man) 0.0 K/mm3 01/20/17 04:18 Monocytes # (Manual) 0.0 K/mm3 (0.0-0.8) 01/20/17 04:18 Eosinophils # (Manual) 0.0 K/mm3 (0.0-0.4) 01/20/17 04:18 Basophils # (Manual) 0.0 K/mm3 (0.0-0.1) 01/20/17 04:18 Metamyelocytes # 0.0 K/mm3 01/20/17 04:18 Myelocytes # 0.0 K/mm3 01/20/17 04:18 Promyelocytes # 0.0 K/mm3 01/20/17 04:18 Blast Cells # 0.0 K/mm3 01/20/17 04:18 WBC Morphology Not Reportable 01/20/17 04:18 Hypersegmented Neuts Not Reportable 01/20/17 04:18 Hyposegmented Neuts Not Reportable 01/20/17 04:18 Hypogranular Neuts Not Reportable 01/20/17 04:18 Smudge Cells Not Reportable 01/20/17 04:18 Toxic Granulation Not Reportable 01/20/17 04:18 Toxic Vacuolation Not Reportable 01/20/17 04:18 Dohle Bodies Not Reportable 01/20/17 04:18 Pelger-Huet Anomaly Not Reportable 01/20/17 04:18 Varinder Rods Not Reportable 01/20/17 04:18 Platelet Estimate Appears normal 01/20/17 04:18 Clumped Platelets Not Reportable 01/20/17 04:18 Plt Clumps, EDTA Not Reportable 01/20/17 04:18 Large Platelets Not Reportable 01/20/17 04:18 Giant Platelets Not Reportable 01/20/17 04:18 Platelet Satelliting Not Reportable 01/20/17 04:18 Plt Morphology Comment Not Reportable 01/20/17 04:18 RBC Morphology Not Reportable 01/20/17 04:18 Dimorphic RBCs Not Reportable 01/20/17 04:18 Polychromasia Not Reportable 01/20/17 04:18 Hypochromasia 1+ 01/20/17 04:18 Poikilocytosis Not Reportable 01/20/17 04:18 Anisocytosis Few 01/20/17 04:18 Microcytosis Not Reportable 01/20/17 04:18 Macrocytosis Not Reportable 01/20/17 04:18 Spherocytes Not Reportable 01/20/17 04:18 Pappenheimer Bodies Not Reportable 01/20/17 04:18 Sickle Cells Not Reportable 01/20/17 04:18 Target Cells Not Reportable 01/20/17 04:18 Tear Drop Cells Not Reportable 01/20/17 04:18 Ovalocytes Few 01/20/17 04:18 Helmet Cells Not Reportable 01/20/17 04:18 [place] Bodies Not Reportable 01/20/17 04:18 [place] Rings Not Reportable 01/20/17 04:18 [place] Cells Not Reportable 01/20/17 04:18 Bite Cells Not Reportable 01/20/17 04:18 Crenated Cell Not Reportable 01/20/17 04:18 Elliptocytes Not Reportable 01/20/17 04:18 Acanthocytes (Spur) Not Reportable 01/20/17 04:18 Rouleaux Not Reportable 01/20/17 04:18 Hemoglobin C Crystals Not Reportable 01/20/17 04:18 Schistocytes Not Reportable 01/20/17 04:18 Malaria parasites Not Reportable 01/20/17 04:18 Robert Bodies Not Reportable 01/20/17 04:18 Hem Pathologist Commnt No 01/20/17 04:18 Sodium 140 mmol/L (137-145) 01/20/17 04:18 Potassium 3.7 mmol/L (3.6-5.0) 01/20/17 04:18 Chloride 101.8 mmol/L (98-107) 01/20/17 04:18 Carbon Dioxide 22 mmol/L (22-30) 01/20/17 04:18 Anion Gap 20 mmol/L 01/20/17 04:18 BUN 12 mg/dL (7-17) 01/20/17 04:18 Creatinine 0.7 mg/dL (0.7-1.2) 01/20/17 04:18 Estimated GFR > 60 ml/min 01/20/17 04:18 BUN/Creatinine Ratio 17.14 % 01/20/17 04:18 Glucose 333 mg/dL (65-100) H 01/20/17 04:18 POC Glucose 182 (70-105) H 01/21/17 08:20 Calcium 8.7 mg/dL (8.4-10.2) 01/20/17 04:18 Total Bilirubin 0.50 mg/dL (0.1-1.2) 01/19/17 01:54 AST 10 units/L (5-40) 01/19/17 01:54 ALT 11 units/L (7-56) 01/19/17 01:54 Alkaline Phosphatase 101 units/L (35-129) 01/19/17 01:54 Total Protein 7.3 g/dL (6.3-8.2) 01/19/17 01:54 Albumin 4.4 g/dL (3.9-5) 01/19/17 01:54 Albumin/Globulin Ratio 1.5 % 01/19/17 01:54 Urine Color Straw (Yellow) 01/19/17 Unknown Urine Turbidity Clear (Clear) 01/19/17 Unknown Urine pH 6.0 (5.0-7.0) 01/19/17 Unknown Ur Specific [place] 1.011 (1.003-1.030) 01/19/17 Unknown Urine Protein <15 mg/dl mg/dL (Negative) 01/19/17 Unknown Urine Glucose (UA) Neg mg/dL (Negative) 01/19/17 Unknown Urine Ketones Neg mg/dL (Negative) 01/19/17 Unknown Urine Blood Neg (Negative) 01/19/17 Unknown Urine Nitrite Neg (Negative) 01/19/17 Unknown Urine Bilirubin Neg (Negative) 01/19/17 Unknown Urine Urobilinogen < 2.0 mg/dL (<2.0) 01/19/17 Unknown Ur Leukocyte Esterase Neg (Negative) 01/19/17 Unknown Urine WBC (Auto) < 1.0 /HPF (0.0-6.0) 01/19/17 Unknown Urine RBC (Auto) < 1.0 /HPF (0.0-6.0) 01/19/17 Unknown Urine Mucus Few /HPF 01/19/17 Unknown
--- NOTE | 2017-01-21 17:46 | Event Note ---
Date: 01/21/17 Dr. Cardona Thank you for asking us to participate in the care of this patient. Full consultation follw. This is 62 year old female admitted with shortness of breath and cough.Patient has history of severe COPD and Patient is oxygen dependent.Patient has history of smoking in the past.Patient also has history of hypertension,diabetes, seizure disorder and sleep apnea. Retired from the . . No children. Allergic to metranidazole.Patient has history of sleep apnea and says she uses CPAP. IMPRESSION: 1. Acute exacerbation of COPD. 2. Acute bronchitis: 3. Hypertension 4. Diabetes 5. Seizure disorder. 6. History of breast Ca and right mastectomy. 7. sleep apnea. PLAN: 1. O2 2 litres via nasal canula. 2. Albuterol/atrovent aerosol treatments q 6 hours. 3. Continue I/V solumedral. 4. Continue Lovenox. 5. Recommend Zithromax. 6. Continue CPAP as she is using at home. 7. Recommend famotadine when nausea subsides.
[2017-01-21] MEDS ORDERED: XANAX PO ONE (20:29)
[2017-01-21] MEDS: BENADRYL PO PRN (21:11)
[2017-01-22] MEDS: NOVOLOG SUB-Q SCH ×4 (00:11→13:04)
[2017-01-22] MEDS: DUONEB *Not for PRN Use IH SCH ×3 (01:45→13:30)
[2017-01-22 05:46] LABS: Hematocrit 37.7 % (30.3-42.9); Hemoglobin 12.4 gm/dl (10.1-14.3); Mean Corpuscular HGB Conc 33 % (30-34); Mean Corpuscular Hemoglobin 29 pg (28-32); Mean Corpuscular Volume 88 fl (79-97); Platelet Count 231 K/mm3 (140-440); Red Blood Count 4.31 M/mm3 (3.65-5.03); Red Cell Distribution Width 14.8 % (13.2-15.2); White Blood Count 13.4 K/mm3 (4.5-11.0)
[2017-01-22 05:49] LABS: Anion Gap 18 mmol/L; BUN/Creatinine Ratio 27.14; Blood Urea Nitrogen 19 mg/dL (7-17); Carbon Dioxide 25 mmol/L (22-30); Chloride 104.4 mmol/L (98-107); Glucose 154 mg/dL (65-100); Potassium 4.6 mmol/L (3.6-5.0); Sodium 143 mmol/L (137-145)
[2017-01-22 07:07] LABS: Anisocytosis Few; Basophils % (Manual) 0 % (0.0-1.8); Blastocytes % (Manual) 0 %; Eosinophils % (Manual) 0 % (0.0-4.3); Hypersegmented Neutrophils Few
[2017-01-22 07:08] LABS: Diff Status Complete; Hypochromasia Few
[2017-01-22] MEDS: PULMICORT IH SCH (08:14)
[2017-01-22] MEDS: BROVANA NEBU IH SCH (08:14)
[2017-01-22 09:14] VITALS: BP 155/81
[2017-01-22] MEDS: COZAAR PO SCH (09:42)
--- NOTE | 2017-01-22 09:42 | Discharge Summary ---
Providers - Providers Date of Admission: 01/19/17 06:16 Date of discharge: 01/22/17 Attending physician: RASHID CHRISTIAN 01/21/17 08:01 Consult to Physician [CONS] Routine Consulting Provider: BASIM KUMAR Reason For Exam: COPD ex[facility] Place consult to:: dr. kumar Notified:: office Phone number called:: Was contact made?: Yes If yes, spoke with:: chaka Time called:: 09:54 Primary care physician: SPANNER OPERATOR Hospitalization Reason for admission: copd exac Condition: Stable Hospital course: 62-year-old with a history of hypertension, diabetes, seizures, COPD comes to the emergency room with complaints of shortness of breath. The patient was admitted for acute COPD exacerbation. She ran out of her oxygen, also complaining of a cough productive of white phlegm. She also complained of pain in the right groin area which started yesterday described as a crampy sensation , intermittent in nature lasting for 2 hours, intensity 6/10, no radiation and she cannot identify any exacerbating factors. The patient has a history of breast cancer and has been off hospice for 1 month now. The patient underwent CT scan of the abdomen and pelvis which showed no acute findings. The groin pain resolved spontaneously during hospitalization. The patient received IV steroids, bronchodilator treatment and nebulizer treatment. Patient has significant improvement in her symptoms during the hospital stay. Patient stated that she was back to her baseline respiratory status and was in agreement with discharge. Patient also requests to be reevaluated by hospice. Dedicated discharge 31 minutes. Disposition: - TO HOME OR SELFCARE Time spent for discharge: 31 - Discharge Diagnoses (1) COPD exacerbation Status: Acute (2) Diabetes mellitus, type 2 Status: Chronic Qualifiers: Diabetes mellitus complication status: without complication Diabetes mellitus complication detail: D Diabetic retinopathy severity: D Proliferative retinopathy type: P Diabetes mellitus macular edema: D Diabetes mellitus usp insulin use: unspecified intermodal customer service insulin use status Laterality: L Chronic kidney disease stage: C Qualified Code(s): E11.9 - Type 2 diabetes mellitus without complications (3) HTN (hypertension) Status: Chronic Qualifiers: Hypertension type: essential hypertension Qualified Code(s): I10 - Essential (primary) hypertension (4) Acute respiratory failure with hypoxia Status: Acute (5) Noncompliance Status: Acute Core Measure Documentation - Palliative Care Palliative Care/ Comfort Measures: Palliative Care/Comfort Measures - Core Measures Any of the following diagnoses?: none Exam - Constitutional Vitals: Temp Pulse Resp BP Pulse Ox 97.8 F 76 18 155/81 97 01/22/17 07:46 01/22/17 07:46 01/22/17 07:46 01/22/17 07:46 01/22/17 07:46 General appearance: Present: no acute distress, well-nourished - EENT Eyes: Present: PERRL ENT: hearing intact, clear oral mucosa - Neck Neck: Present: supple, normal ROM - Respiratory Respiratory effort: normal Respiratory: bilateral: CTA - Cardiovascular Heart Sounds: Present: S1 & S2. Absent: rub, click - Extremities Extremities: pulses symmetrical, No edema Peripheral Pulses: within normal limits - Abdominal General gastrointestinal: Present: soft, non-tender, non-distended, normal bowel sounds Female genitourinary: Present: normal - Integumentary Integumentary: Present: clear, warm, dry - Musculoskeletal Musculoskeletal: gait normal, strength equal bilaterally - Psychiatric Psychiatric: appropriate mood/affect, intact judgment & insight - Neurologic Neurologic: CNII-XII intact, moves all extremities Plan Activity: advance as tolerated Weight Bearing Status: Weight Bear as Tolerated Special Instructions: home oxygen via Durable Medical Equipment Needed Upon Discharge: Oxygen Follow up with: PRIMARY CARE, [Primary Care Provider] - 3-5 Days GEOVANNA MAGANA MD [Staff Physician] - 7 Days Prescriptions: diphenhydrAMINE [Benadryl CAP] 25 mg PO QHS PRN #30 capsule PRN Reason: Sleep oxyCODONE /ACETAMINOPHEN [Percocet 5/325 mg] 2 tab PO Q6H PRN #30 tablet PRN Reason: Pain, Moderate (4-6) Prednisone [predniSONE 10 mg (6-Day Pack, 21 Tabs)] 10 mg PO .TAPER #1 tab.ds.pk
[2017-01-22] MEDS: LOVENOX SUB-Q SCH (09:43)
[2017-01-22] MEDS: GLUCOPHAGE PO SCH (09:43)
[2017-01-22] MEDS: KEPPRA PO SCH (09:43)
[2017-01-22] MEDS: PERCOCET 5/325 PO PRN (09:48)
--- NOTE | 2017-01-22 12:41 | Progress Note ---
Assessment and Plan - Patient Problems (1) COPD exacerbation Current Visit: Yes Status: Acute Plan to address problem: - continue suplemental oxygen - continue bronchodilators and pulmonary toilet (LABA, KYLE & ICS) - begin systemic steroid taper - CPAP qhs - empiric AB's as ordered today for CAP coverage empirically (2) Diabetes mellitus, type 2 Current Visit: Yes Status: Chronic Qualifiers: Diabetes mellitus complication status: without complication Diabetes mellitus complication detail: D Diabetic retinopathy severity: D Proliferative retinopathy type: P Diabetes mellitus macular edema: D Diabetes mellitus correction insulin use: unspecified correction insulin use status Laterality: L Chronic kidney disease stage: C Qualified Code(s): E11.9 - Type 2 diabetes mellitus without complications Plan to address problem: - continue SSI (3) Acute respiratory failure with hypoxia Current Visit: No Status: Acute Plan to address problem: - as for COPD above (4) Discharge planning issues Current Visit: Yes Status: Acute Plan to address problem: - home with home hospice at discharge Subjective Date of service: 01/22/17 Principal diagnosis: COPD; KELSIE Interval history: Seen and examined at bedside; 24 hour events reviewed; nursing and respiratory care staff consulted; no adverse overnight events reported to me; resting in bed ; sitting up; on supplemental oxygen; denies acute chest pains; states that she has been set up with home hospice Objective Vital Signs - 12hr 01/22/17 01/22/17 01/22/17 01:46 01:56 07:46 Temperature 97.8 F Pulse Rate 76 Pulse Rate [ 78 86 Anterior Bilateral Throughout] Respiratory 18 Rate Respiratory 21 19 Rate [Anterior Bilateral Throughout] Blood Pressure 155/81 O2 Sat by Pulse 97 Oximetry 01/22/17 09:42 Temperature Pulse Rate 76 Pulse Rate [ Anterior Bilateral Throughout] Respiratory Rate Respiratory Rate [Anterior Bilateral Throughout] Blood Pressure 155/81 O2 Sat by Pulse Oximetry Constitutional: alert, appears uncomfortable Eyes: non-icteric ENT: oropharynx moist Neck: supple, no lymphadenopathy Effort: mildly labored Ascultation: Bilateral: diminished breath sounds, rhonchi (scant in posterior bases) Cardiovascular: regular rate and rhythm Gastrointestinal: normoactive bowel sounds, soft, non-tender, non-distended Integumentary: normal Extremities: no cyanosis, no edema, pulses normal, no ischemia or petechiae Neurologic: normal mental status, non-focal exam, pupils equal and round, motor strength normal and Psychiatric: mood appropriate, affect normal CBC and BMP: 01/22/17 05:08 01/22/17 05:08 Abnormal lab findings: Abnormal Labs 01/19/17 01/19/17 01/19/17 08:11 12:41 18:04 WBC Seg Neuts % (Manual) Lymphocytes % (Manual) Seg Neutrophils # Man Lymphocytes # (Manual) BUN Glucose POC Glucose 240 H 167 H 251 H 01/19/17 01/20/17 01/20/17 22:29 04:18 04:18 WBC 11.2 H Seg Neuts % (Manual) Lymphocytes % (Manual) 6.0 L Seg Neutrophils # Man Lymphocytes # (Manual) 0.7 L BUN Glucose 333 H POC Glucose 255 H 01/20/17 01/20/17 01/20/17 05:11 12:18 19:41 WBC Seg Neuts % (Manual) Lymphocytes % (Manual) Seg Neutrophils # Man Lymphocytes # (Manual) BUN Glucose POC Glucose 327 H 118 H 172 H 01/20/17 01/21/17 01/21/17 21:27 08:20 12:37 WBC Seg Neuts % (Manual) Lymphocytes % (Manual) Seg Neutrophils # Man Lymphocytes # (Manual) BUN Glucose POC Glucose 144 H 182 H 188 H 01/21/17 01/21/17 01/22/17 16:46 21:29 05:08 WBC 13.4 H Seg Neuts % (Manual) 89.0 H Lymphocytes % (Manual) 7.0 L Seg Neutrophils # Man 11.9 H Lymphocytes # (Manual) 0.9 L BUN Glucose POC Glucose 145 H 186 H 01/22/17 01/22/17 01/22/17 05:08 06:31 11:55 WBC Seg Neuts % (Manual) Lymphocytes % (Manual) Seg Neutrophils # Man Lymphocytes # (Manual) BUN 19 H Glucose 154 H POC Glucose 210 H 168 H
[2017-01-22] MEDS ORDERED: LEVAQUIN PO SCH (16:00)
== END 2017-01-22 16:05 | disposition hospice, home (50) | DRG 189 ==
LOC: ED 00:15 → 3A 06:16
PROVIDERS: ADMIT Internal Medicine; ATTEND Hospitalist
PROC: 5A09457 Assistance with Respiratory Ventilation, 24-96 Consecutive Hours, Continuous Positive Airway Pressure (ICD-10-PCS; 2017-01-19)
PROC: 3E0234Z Introduction of Serum, Toxoid and Vaccine into Muscle, Percutaneous Approach (ICD-10-PCS; principal; 2017-01-20)
DX: J96.01 Acute respiratory failure with hypoxia (principal); J44.1 Chronic obstructive pulmonary disease with (acute) exacerbation; Z51.5 Encounter for palliative care; E11.8 Type 2 diabetes mellitus with unspecified complications; J20.9 Acute bronchitis, unspecified; I11.0 Hypertensive heart disease with heart failure; I50.9 Heart failure, unspecified; G40.909 Epilepsy, unspecified, not intractable, without status epilepticus; G47.30 Sleep apnea, unspecified; J44.0 Chronic obstructive pulmonary disease with (acute) lower respiratory infection; Z86.718 Personal history of other venous thrombosis and embolism; Z90.710 Acquired absence of both cervix and uterus; Z85.3 Personal history of malignant neoplasm of breast; Z91.19 Patient's noncompliance with other medical treatment and regimen; Z79.899 Other long term (current) drug therapy; I25.2 Old myocardial infarction; Z90.11 Acquired absence of right breast and nipple; Z76.5 Malingerer [conscious simulation]; Z82.49 Family history of ischemic heart disease and other diseases of the circulatory system; Z99.81 Dependence on supplemental oxygen; Z23 Encounter for immunization; R10.30 Lower abdominal pain, unspecified; Z88.8 Allergy status to other drugs, medicaments and biological substances; Z79.4 Long term (current) use of insulin
CPT/HCPCS: 36415; 71010; 74177; 80048; 80053; 81001; 82962; 85007; 85025; 90686; 90732; 94640; 94660; 94760; J1170; J1200; J1650; J1815; J2930; Q9967

== ENCOUNTER 2017-01-23 07:24 | Emergency (ER) | payer MEDICAID ==
[2017-01-23 08:26] LABS: Basophils % (Auto) 0.4 % (0.0-1.8); Hematocrit 40.4 % (30.3-42.9); Hemoglobin 13.3 gm/dl (10.1-14.3); Mean Corpuscular HGB Conc 33 % (30-34); Mean Corpuscular Hemoglobin 29 pg (28-32); Mean Corpuscular Volume 87 fl (79-97); Platelet Count 233 K/mm3 (140-440); Red Blood Count 4.63 M/mm3 (3.65-5.03); White Blood Count 11.7 K/mm3 (4.5-11.0)
[2017-01-23 08:44] LABS: Anion Gap 17 mmol/L; Blood Urea Nitrogen 15 mg/dL (7-17); Calcium 9.2 mg/dL (8.4-10.2); Carbon Dioxide 26 mmol/L (22-30); Chloride 100.7 mmol/L (98-107); Glucose 106 mg/dL (65-100); Potassium 4.1 mmol/L (3.6-5.0); Sodium 140 mmol/L (137-145)
[2017-01-23 08:47] LABS: INR 0.94 (0.87-1.13)
[2017-01-23] MEDS ORDERED: DUONEB *Not for PRN Use IH ONE ×3 (10:20→10:40)
[2017-01-23] MEDS ORDERED: MAGNESIUM SULFATE 2GM/50ML 2 GM/50 ML BAG IV ONE (10:40)
[2017-01-23] MEDS ORDERED: ATROVENT IH ONE (10:45)
[2017-01-23] MEDS ORDERED: PROVENTIL IH ONE (10:45)
--- NOTE | 2017-01-23 11:06 | XRay Report ---
CHEST 2 VIEWS INDICATION: Shortness of breath. COMPARISON: 01/19/2017 FINDINGS: PA and lateral chest radiographs demonstrate normal cardiomediastinal silhouette and clear, slightly hyperexpanded lungs/possible COPD. Right axillary surgical clips and bilateral breast implants again noted. Intact bones. CONCLUSION: No acute disease in the chest, as described. Thank you for the opportunity to participate in this patient's care.
[2017-01-23] MEDS ORDERED: ATIVAN ONE (11:14)
[2017-01-23] MEDS ORDERED: ATIVAN IM ONE (11:32)
[2017-01-23] MEDS ORDERED: KEPPRA 1,000 MG/NS 0.75% 100ML 1,000 MG/100 ML BAG IV ONE (11:48)
[2017-01-23 12:10] LABS: ISTAT Base Excess 1; ISTAT HCO3 27.3; ISTAT PCO2 51.5 (35-45); ISTAT PH 7.333 (7.35-7.45); ISTAT PO2 86 (80-105); ISTAT SO2 96; ISTAT TCO2 29
--- NOTE | 2017-01-23 13:14 | Emergency Department Report ---
ED Shortness of Breath HPI - General Chief Complaint: Dyspnea/Respdistress Stated Complaint: difficulty breathing Time Seen by Provider: 01/23/17 10:13 Source: patient, family, EMS Mode of arrival: Stretcher Limitations: Altered Mental Status, Physical Limitation - History of Present Illness Initial Comments: The patient states that she was discharged from the hospital yesterday. Apparently she was admitted for an exacerbation of COPD. She states she has a home nebulizer machine but no CPAP. Apparently she was on at least nocturnal BiPAP during her hospitalization. She complains of difficulty in breathing. She is apparently wheezing on arrival. She was placed on nebulized therapy. She did not complain of chest pain fever or any other supplemental symptoms. She did not take her prednisone 30 mg yet today. MD Complaint: shortness of breath, "asthma attack" -: hour(s) Severity: moderate Quality: other (did not complain of chest pain to me) Improves With: nothing Worsens With: nothing Known History Of: COPD, congestive heart failure Context: other (recent hospitalization) Associated Symptoms: denies other symptoms - Related Data Home Medications Medication Instructions Recorded Confirmed Last Taken Cozaar 25 mg PO DAILY 07/14/15 01/19/17 01/18/17 Keppra TAB 1,000 mg PO BID 07/14/15 01/19/17 01/18/17 Nitrostat 0.4 mg SL Q5M PRN 07/14/15 01/19/17 Unknown Pepcid 20 mg PO DAILY 07/14/15 01/19/17 01/18/17 Percocet 10/325 mg 10 - 325 mg PO Q8H PRN 07/14/15 01/19/17 01/18/17 ProAir HFA Inhaler 2 inh INHALATION QID PRN 07/14/15 01/19/17 01/18/17 SEROquel 200 mg PO HS 07/14/15 01/19/17 01/18/17 Symbicort 160-4.5 (Nf) 1 inh INHALATION BID 07/14/15 01/19/17 01/18/17 metFORMIN [Glucophage] 500 mg PO BID 07/14/15 01/19/17 01/18/17 Previous Rx's Medication Instructions Recorded Last Taken Type ALBUTEROL Inhaler [ProAir HFA 1 puff IH BID PRN #1 inha 07/15/15 01/18/17 Rx Inhaler] Albuterol Sulfate [Albuterol 0.63% 0.63 mg IH TID PRN #1 box 07/15/15 01/18/17 Rx NEBS] Ipratropium [Atrovent NEB] 0.5 mg IH Q8HRT PRN #1 box 07/15/15 01/18/17 Rx Nebulizer Accessories [Aeroneb Go] 1 each MC DAILY PRN #1 each 07/15/15 Rx Prednisone [predniSONE 10 mg 10 mg PO .TAPER #1 tab.ds.pk 01/22/17 Unknown Rx (6-Day Pack, 21 Tabs)] QUEtiapine [SEROquel] 200 mg PO QHS tablet 01/22/17 Unknown Rx QUEtiapine [SEROquel] 200 mg PO QHS tablet 01/22/17 Unknown Rx diphenhydrAMINE [Benadryl CAP] 25 mg PO QHS PRN #30 capsule 01/22/17 Unknown Rx oxyCODONE /ACETAMINOPHEN [Percocet 2 tab PO Q6H PRN #30 tablet 01/22/17 Unknown Rx 5/325 mg] Allergies Allergy/AdvReac Type Severity Reaction Status Date / Time metronidazole [From Flagyl] Allergy Rash Verified 01/19/17 01:18 ED Review of Systems ROS: Stated complaint: CHEST PAIN Other details as noted in HPI Constitutional: denies: chills, fever Eyes: denies: eye pain, eye discharge, vision change ENT: denies: ear pain, throat pain Respiratory: shortness of breath, wheezing. denies: cough Cardiovascular: denies: chest pain, palpitations Endocrine: no symptoms reported Gastrointestinal: denies: abdominal pain, nausea, diarrhea Genitourinary: denies: urgency, dysuria, discharge Musculoskeletal: denies: back pain, joint swelling, arthralgia Skin: denies: rash, lesions Neurological: denies: headache, weakness, paresthesias Psychiatric: denies: anxiety, depression Hematological/Lymphatic: denies: easy bleeding, easy bruising ED Past Medical Hx - Past Medical History Hx Hypertension: Yes Hx CVA: Yes Hx Heart Attack/AMI: Yes Hx Congestive Heart Failure: Yes Hx Diabetes: Yes Hx Deep Vein Thrombosis: Yes Hx Pulmonary Embolism: No Hx Renal Disease: No Hx of Cancer: Yes (lung, breast) Hx Seizures: Yes Hx Kidney Stones: No Hx Asthma: Yes Hx COPD: Yes Hx Tuberculosis: No Hx Dementia: No Hx HIV: No - Surgical History Past Surgical History?: Yes Hx Coronary Stent: No Hx Open Heart Surgery: No Hx Pacemaker: No Hx Internal Defibrillator: No Hx Cholecystectomy: No Hx Appendectomy: No Hx Breast Surgery: No Additional Surgical History: Hysterectomy, R mastectomy with implant, Lumbar spine surgery, chronic pain managment - Social History Smoking Status: Former Smoker Substance Use Type: None - Medications Home Medications: Home Medications Medication Instructions Recorded Confirmed Last Taken Type Cozaar 25 mg PO DAILY 07/14/15 01/19/17 01/18/17 History Keppra TAB 1,000 mg PO BID 07/14/15 01/19/17 01/18/17 History Nitrostat 0.4 mg SL Q5M PRN 07/14/15 01/19/17 Unknown History Pepcid 20 mg PO DAILY 07/14/15 01/19/17 01/18/17 History Percocet 10/325 mg 10 - 325 mg PO Q8H PRN 07/14/15 01/19/17 01/18/17 History ProAir HFA Inhaler 2 inh INHALATION QID PRN 07/14/15 01/19/17 01/18/17 History SEROquel 200 mg PO HS 07/14/15 01/19/17 01/18/17 History Symbicort 160-4.5 (Nf) 1 inh INHALATION BID 07/14/15 01/19/17 01/18/17 History metFORMIN [Glucophage] 500 mg PO BID 07/14/15 01/19/17 01/18/17 History ALBUTEROL Inhaler [ProAir HFA 1 puff IH BID PRN #1 inha 07/15/15 01/19/17 Rx Inhaler] Albuterol Sulfate [Albuterol 0.63% 0.63 mg IH TID PRN #1 box 07/15/15 01/19/17 01/18/17 Rx NEBS] Ipratropium [Atrovent NEB] 0.5 mg IH Q8HRT PRN #1 box 07/15/15 01/19/17 Rx Nebulizer Accessories [Aeroneb Go] 1 each MC DAILY PRN #1 each 07/15/1501/18/17 Rx Prednisone [predniSONE 10 mg 10 mg PO .TAPER #1 tab.ds.pk 01/22/17 Unknown Rx (6-Day Pack, 21 Tabs)] QUEtiapine [SEROquel] 200 mg PO QHS tablet 01/22/17 Unknown Rx QUEtiapine [SEROquel] 200 mg PO QHS tablet 01/22/17 Unknown Rx diphenhydrAMINE [Benadryl CAP] 25 mg PO QHS PRN #30 capsule 01/22/17 Unknown Rx oxyCODONE /ACETAMINOPHEN [Percocet 2 tab PO Q6H PRN #30 tablet 01/22/17 Unknown Rx 5/325 mg] ED Physical Exam - General Limitations: Altered Mental Status, Physical Limitation General appearance: alert, anxious - Head Head exam: Present: atraumatic, normocephalic - Eye Eye exam: Present: normal appearance - ENT ENT exam: Present: mucous membranes moist - Neck Neck exam: Present: normal inspection. Absent: tenderness, meningismus - Respiratory Respiratory exam: Present: wheezes (bilaterally), accessory muscle use (mild). Absent: respiratory distress - Cardiovascular Cardiovascular Exam: Present: regular rate, normal rhythm. Absent: systolic murmur, diastolic murmur, rubs, gallop - GI/Abdominal GI/Abdominal exam: Present: soft, normal bowel sounds. Absent: distended, tenderness, guarding, rebound - Extremities Exam Extremities exam: Present: normal inspection, full ROM, normal capillary refill. Absent: tenderness, pedal edema, joint swelling, calf tenderness - Back Exam Back exam: Present: normal inspection - Neurological Exam Neurological exam: Present: alert, oriented X3, CN II-XII intact (as testable). Absent: motor sensory deficit - Psychiatric Psychiatric exam: Present: normal affect, normal mood - Skin Skin exam: Present: warm, dry, intact, normal color. Absent: rash ED Course Vital Signs 01/23/17 01/23/17 01/23/17 07:43 09:34 10:23 Temperature 98 F Pulse Rate 90 80 82 Pulse Rate [ Anterior Bilateral Throughout] Pulse Rate [ Bilateral Throughout] Respiratory 32 H 22 21 Rate Respiratory Rate [Anterior Bilateral Throughout] Respiratory Rate [Bilateral Throughout] Blood Pressure 190/133 Blood Pressure 166/105 163/100 [Right] O2 Sat by Pulse 98 96 98 Oximetry 01/23/17 01/23/17 01/23/17 10:24 10:43 10:49 Temperature Pulse Rate Pulse Rate [ 85 84 Anterior Bilateral Throughout] Pulse Rate [ 82 Bilateral Throughout] Respiratory Rate Respiratory 20 21 Rate [Anterior Bilateral Throughout] Respiratory 21 Rate [Bilateral Throughout] Blood Pressure Blood Pressure [Right] O2 Sat by Pulse Oximetry 01/23/17 01/23/17 01/23/17 11:18 11:20 11:36 Temperature Pulse Rate 148 H 132 H 108 H Pulse Rate [ 148 H Anterior Bilateral Throughout] Pulse Rate [ Bilateral Throughout] Respiratory 31 H 29 H 25 H Rate Respiratory 28 H Rate [Anterior Bilateral Throughout] Respiratory Rate [Bilateral Throughout] Blood Pressure 231/128 Blood Pressure 231/128 174/107 [Right] O2 Sat by Pulse 100 100 98 Oximetry 01/23/17 01/23/17 11:45 12:15 Temperature Pulse Rate 103 H 98 H Pulse Rate [ Anterior Bilateral Throughout] Pulse Rate [ Bilateral Throughout] Respiratory 23 19 Rate Respiratory Rate [Anterior Bilateral Throughout] Respiratory Rate [Bilateral Throughout] Blood Pressure 172/106 Blood Pressure 170/106 [Right] O2 Sat by Pulse 98 99 Oximetry - Reevaluation(s) Reevaluation #1: Patient was improving with nebs. She was given Solu-Medrol and magnesium. She had a seizure (generalized). She was placed on BiPAP. Arterial blood gas showed mild respiratory acidosis but she hadn't been on BiPAP for that long. Respiratory will adjust her settings as necessary. She was given a milligram 01/23/17 13:07 01/23/17 13:[address] Grace and Verenice. Patient placed in ICU. Reevaluation #2: Multiple reexaminations. The patient is doing well on BiPAP. She remains lethargic after Ativan however. She will be admitted to the intensive care unit. 01/23/17 13:19 ED Medical Decision Making - Lab Data Result diagrams: 01/23/17 08:13 01/23/17 08:13 Laboratory Results - last 24 hr 01/23/17 01/23/17 01/23/17 08:13 08:13 08:13 WBC 11.7 H RBC 4.63 Hgb 13.3 Hct 40.4 MCV 87 MCH 29 MCHC 33 RDW 15.0 Plt Count 233 Lymph % (Auto) 8.9 L [place] % (Auto) 6.4 Eos % (Auto) 0.0 Baso % (Auto) 0.4 Lymph # 1.0 L [place] # 0.7 Eos # 0.0 Baso # 0.0 Seg Neutrophils % 84.3 H Seg Neutrophils # 9.9 H PT 12.5 INR 0.94 POC ABG pH POC ABG pCO2 POC ABG pO2 POC ABG HCO3 POC ABG Total CO2 POC ABG O2 Sat POC ABG Base Excess FiO2 Sodium 140 Potassium 4.1 Chloride 100.7 Carbon Dioxide 26 Anion Gap 17 BUN 15 Creatinine 0.5 L Estimated GFR > 60 BUN/Creatinine Ratio 30.00 Glucose 106 H POC Glucose Calcium 9.2 Troponin T 01/23/17 01/23/17 01/23/17 08:13 08:20 12:00 WBC RBC Hgb Hct MCV MCH MCHC RDW Plt Count Lymph % (Auto) [place] % (Auto) Eos % (Auto) Baso % (Auto) Lymph # [place] # Eos # Baso # Seg Neutrophils % Seg Neutrophils # PT INR POC ABG pH 7.333 L POC ABG pCO2 51.5 H POC ABG pO2 86 POC ABG HCO3 27.3 POC ABG Total CO2 29 POC ABG O2 Sat 96 POC ABG Base Excess 1 FiO2 35 Sodium Potassium Chloride Carbon Dioxide Anion Gap BUN Creatinine Estimated GFR BUN/Creatinine Ratio Glucose POC Glucose 90 Calcium Troponin T < 0.010 - EKG Data -: EKG Interpreted by Me EKG shows normal: sinus rhythm, axis, intervals, QRS complexes Rate: normal - EKG Data When compared to previous EKG there are: no significant change Interpretation: other (lateral T-wave inversions similar to prior) - Radiology Data interpreted by me: Chest x-ray showed no acute process Critical Care Time: Yes Critical care time in (mins) excluding proc time.: 90 Critical care attestation.: If time is entered above; I have spent that time in minutes in the direct care of this critically ill patient, excluding procedure time. ED Disposition Clinical Impression: Generalized seizure, Seizure disorder Respiratory failure Qualifiers: Chronicity: acute Respiratory failure complication: hypercapnia Qualified Code( s): J96.02 - Acute respiratory failure with hypercapnia Disposition: OP ADMIT IP TO THIS HOSP Is pt being admited?: Yes Does the pt Need Aspirin: Yes Condition: Stable Referrals: PRIMARY CARE, [Primary Care Provider] - 3-5 Days Time of Disposition: 13:20
[2017-01-23] MEDS ORDERED: ASPIRIN PR ONE (13:21)
[2017-01-23] MEDS ORDERED: LOVENOX SUB-Q SCH (14:00)
--- NOTE | 2017-01-23 16:36 | History and Physical Report ---
History of Present Illness Date of examination: 01/23/17 Date of admission: 01/23/17 13:21 Chief complaint: Increasing SOB for 1 Day History of present illness: History of Present Illness Apparently she was admitted for an exacerbation of COPD recently.Discharged to Hospice.. She states she has a home nebulizer machine but no CPAP. Apparently she was on at least nocturnal BiPAP during her hospitalization. She complains of difficulty in breathing. She is apparently wheezing on arrival. She was placed on nebulized therapy. She did not complain of chest pain fever or any other supplemental symptoms. SOB better while in ER.Removing her BIpap often to drink soda. - Past Medical History Hx Hypertension: Yes Hx CVA: Yes Hx Heart Attack/AMI: Yes Hx Congestive Heart Failure: Yes Hx Diabetes: Yes Hx Deep Vein Thrombosis: Yes Hx of Cancer: Yes (lung, breast) Hx Seizures: Yes Hx Asthma: Yes Hx COPD: Yes - Surgical History Past Surgical History?: Yes Additional Surgical History: Hysterectomy, R mastectomy with implant, Lumbar spine surgery, chronic pain managment - Social History Smoking Status: Former Smoker Substance Use Type: None - Medications Home Medications: Home Medications Medication Instructions Recorded Confirmed Last Taken Type Cozaar 25 mg PO DAILY 07/14/15 01/19/17 01/18/17 History Keppra TAB 1,000 mg PO BID 07/14/15 01/19/17 01/18/17 History Nitrostat 0.4 mg SL Q5M PRN 07/14/15 01/19/17 Unknown History Pepcid 20 mg PO DAILY 07/14/15 01/19/17 01/18/17 History Percocet 10/325 mg 10 - 325 mg PO Q8H PRN 07/14/15 01/19/17 01/18/17 History ProAir HFA Inhaler 2 inh INHALATION QID PRN 07/14/15 01/19/17 01/18/17 History SEROquel 200 mg PO HS 07/14/15 01/19/17 01/18/17 History Symbicort 160-4.5 (Nf) 1 inh INHALATION BID 07/14/15 01/19/17 01/18/17 History metFORMIN [Glucophage] 500 mg PO BID 07/14/15 01/19/17 01/18/17 History ALBUTEROL Inhaler [ProAir HFA 1 puff IH BID PRN #1 inha 07/15/15 01/19/17 Rx Inhaler] Albuterol Sulfate [Albuterol 0.63% 0.63 mg IH TID PRN #1 box 07/15/15 01/19/17 01/18/17 Rx NEBS] Ipratropium [Atrovent NEB] 0.5 mg IH Q8HRT PRN #1 box 07/15/15 01/19/17 Rx Nebulizer Accessories [Aeroneb Go] 1 each MC DAILY PRN #1 each 07/15/1501/18/17 Rx Prednisone [predniSONE 10 mg 10 mg PO .TAPER #1 tab.ds.pk 01/22/17 Unknown Rx (6-Day Pack, 21 Tabs)] QUEtiapine [SEROquel] 200 mg PO QHS tablet 01/22/17 Unknown Rx QUEtiapine [SEROquel] 200 mg PO QHS tablet 01/22/17 Unknown Rx diphenhydrAMINE [Benadryl CAP] 25 mg PO QHS PRN #30 capsule 01/22/17 Unknown Rx oxyCODONE /ACETAMINOPHEN [Percocet 2 tab PO Q6H PRN #30 tablet 01/22/17 Unknown Rx 5/325 mg] Review of Systems Stated complaint: CHEST PAIN Other details as noted in HPI Constitutional: denies: chills, fever Eyes: denies: eye pain, eye discharge, vision change ENT: denies: ear pain, throat pain Respiratory: shortness of breath, wheezing. denies: cough Cardiovascular: denies: chest pain, palpitations Endocrine: no symptoms reported Gastrointestinal: denies: abdominal pain, nausea, diarrhea Genitourinary: denies: urgency, dysuria, discharge Musculoskeletal: denies: back pain, joint swelling, arthralgia Skin: denies: rash, lesions Neurological: denies: headache, weakness, paresthesias Psychiatric: denies: anxiety, depression Hematological/Lymphatic: denies: easy bleeding, easy bruising Medications and Allergies Allergies Allergy/AdvReac Type Severity Reaction Status Date / Time metronidazole [From Flagyl] Allergy Rash Verified 01/19/17 01:18 Home Medications Medication Instructions Recorded Confirmed Last Taken Type Cozaar 25 mg PO DAILY 07/14/15 01/19/17 01/18/17 History Keppra TAB 1,000 mg PO BID 07/14/15 01/19/17 01/18/17 History Nitrostat 0.4 mg SL Q5M PRN 07/14/15 01/19/17 Unknown History Pepcid 20 mg PO DAILY 07/14/15 01/19/17 01/18/17 History Percocet 10/325 mg 10 - 325 mg PO Q8H PRN 07/14/15 01/19/17 01/18/17 History ProAir HFA Inhaler 2 inh INHALATION QID PRN 07/14/15 01/19/17 01/18/17 History SEROquel 200 mg PO HS 07/14/15 01/19/17 01/18/17 History Symbicort 160-4.5 (Nf) 1 inh INHALATION BID 07/14/15 01/19/17 01/18/17 History metFORMIN [Glucophage] 500 mg PO BID 07/14/15 01/19/17 01/18/17 History ALBUTEROL Inhaler [ProAir HFA 1 puff IH BID PRN #1 inha 07/15/15 01/19/17 Rx Inhaler] Albuterol Sulfate [Albuterol 0.63% 0.63 mg IH TID PRN #1 box 07/15/15 01/19/17 01/18/17 Rx NEBS] Ipratropium [Atrovent NEB] 0.5 mg IH Q8HRT PRN #1 box 07/15/15 01/19/17 Rx Nebulizer Accessories [Aeroneb Go] 1 each MC DAILY PRN #1 each 07/15/1501/18/17 Rx Prednisone [predniSONE 10 mg 10 mg PO .TAPER #1 tab.ds.pk 01/22/17 Unknown Rx (6-Day Pack, 21 Tabs)] QUEtiapine [SEROquel] 200 mg PO QHS tablet 01/22/17 Unknown Rx QUEtiapine [SEROquel] 200 mg PO QHS tablet 01/22/17 Unknown Rx diphenhydrAMINE [Benadryl CAP] 25 mg PO QHS PRN #30 capsule 01/22/17 Unknown Rx oxyCODONE /ACETAMINOPHEN [Percocet 2 tab PO Q6H PRN #30 tablet 01/22/17 Unknown Rx 5/325 mg] Active Meds: Active Medications Enoxaparin Sodium (Lovenox) 40 mg SUB-Q QDAY E[facility] Last Admin: 01/23/17 14:58 Dose: 40 mg Exam - Constitutional Vitals: Temp Pulse Resp BP Pulse Ox 98 F 88 15 157/98 99 01/23/17 07:43 01/23/17 15:22 01/23/17 15:22 01/23/17 15:22 01/23/17 15:45 General appearance: Present: well-nourished - EENT Eyes: Present: PERRL ENT: hearing intact, clear oral mucosa - Neck Neck: Present: supple, normal ROM - Respiratory Respiratory effort: normal Respiratory: bilateral: diminished, rhonchi - Cardiovascular Heart rate: 80 Rhythm: regular Heart Sounds: Present: S1 & S2. Absent: rub, click - Extremities Extremities: no ischemia, pulses intact, pulses symmetrical, No edema Peripheral Pulses: within normal limits - Abdominal General gastrointestinal: Present: soft, non-tender, non-distended, normal bowel sounds Female genitourinary: Present: normal - Rectal Rectal Exam: deferred - Integumentary Integumentary: Present: clear, warm, dry - Musculoskeletal Musculoskeletal: gait normal, strength equal bilaterally - Psychiatric Psychiatric: appropriate mood/affect, intact judgment & insight - Neurologic Neurologic: CNII-XII intact, moves all extremities - Allied Health Allied health notes reviewed: nursing, case management Results - Labs CBC & Chem 7: 01/23/17 08:13 01/23/17 08:13 Labs: Laboratory Last Values WBC 11.7 K/mm3 (4.5-11.0) H 01/23/17 08:13 RBC 4.63 M/mm3 (3.65-5.03) 01/23/17 08:13 Hgb 13.3 gm/dl (10.1-14.3) 01/23/17 08:13 Hct 40.4 % (30.3-42.9) 01/23/17 08:13 MCV 87 fl (79-97) 01/23/17 08:13 MCH 29 pg (28-32) 01/23/17 08:13 MCHC 33 % (30-34) 01/23/17 08:13 RDW 15.0 % (13.2-15.2) 01/23/17 08:13 Plt Count 233 K/mm3 (140-440) 01/23/17 08:13 Lymph % (Auto) 8.9 % (13.4-35.0) L 01/23/17 08:13 [place] % (Auto) 6.4 % (0.0-7.3) 01/23/17 08:13 Eos % (Auto) 0.0 % (0.0-4.3) 01/23/17 08:13 Baso % (Auto) 0.4 % (0.0-1.8) 01/23/17 08:13 Lymph # 1.0 K/mm3 (1.2-5.4) L 01/23/17 08:13 [place] # 0.7 K/mm3 (0.0-0.8) 01/23/17 08:13 Eos # 0.0 K/mm3 (0.0-0.4) 01/23/17 08:13 Baso # 0.0 K/mm3 (0.0-0.1) 01/23/17 08:13 Seg Neutrophils % 84.3 % (40.0-70.0) H 01/23/17 08:13 Seg Neutrophils # 9.9 K/mm3 (1.8-7.7) H 01/23/17 08:13 PT 12.5 Sec. (12.2-14.9) 01/23/17 08:13 INR 0.94 (0.87-1.13) 01/23/17 08:13 POC ABG pH 7.333 (7.35-7.45) L 01/23/17 12:00 POC ABG pCO2 51.5 (35-45) H 01/23/17 12:00 POC ABG pO2 86 (80-105) 01/23/17 12:00 POC ABG HCO3 27.3 01/23/17 12:00 POC ABG Total CO2 29 01/23/17 12:00 POC ABG O2 Sat 96 01/23/17 12:00 POC ABG Base Excess 1 01/23/17 12:00 FiO2 35 % 01/23/17 12:00 Sodium 140 mmol/L (137-145) 01/23/17 08:13 Potassium 4.1 mmol/L (3.6-5.0) 01/23/17 08:13 Chloride 100.7 mmol/L (98-107) 01/23/17 08:13 Carbon Dioxide 26 mmol/L (22-30) 01/23/17 08:13 Anion Gap 17 mmol/L 01/23/17 08:13 BUN 15 mg/dL (7-17) 01/23/17 08:13 Creatinine 0.5 mg/dL (0.7-1.2) L 01/23/17 08:13 Estimated GFR > 60 ml/min 01/23/17 08:13 BUN/Creatinine Ratio 30.00 % 01/23/17 08:13 Glucose 106 mg/dL (65-100) H 01/23/17 08:13 POC Glucose 90 (70-105) 01/23/17 08:20 Calcium 9.2 mg/dL (8.4-10.2) 01/23/17 08:13 Troponin T < 0.010 ng/mL (0.00-0.029) 01/23/17 08:13 Assessment and Plan Advance Directives: Yes (DNR) Plan of care discussed with patient/family: Yes - Patient Problems (1) Acute respiratory failure with hypoxia Status: Acute Plan to address problem: Patient initiated on Nebulizer treatments Solumedrol and IV ABX (2) COPD exacerbation Status: Acute Plan to address problem: As Above (3) DVT prophylaxis Status: Acute Plan to address problem: Initiated on Lovenox (4) Generalized seizure Status: Chronic Plan to address problem: Cont Keppra (5) Noncompliance Status: Acute Plan to address problem: Patient very non compliant (6) Discharge planning issues Status: Acute Plan to address problem: patient wants to be in Hospice and be discharged
[2017-01-23] MEDS ORDERED: BENADRYL PO PRN (16:37)
[2017-01-23] MEDS ORDERED: DUONEB *Not for PRN Use IH (16:40)
--- NOTE | 2017-01-23 16:42 | Consultation ---
History of Present Illness History of present illness: PULMONARY/CCM CONSULT NOTE (Full dictation # [id number]) Please see dictated notes for full details Medications and Allergies Allergies Allergy/AdvReac Type Severity Reaction Status Date / Time metronidazole [From Flagyl] Allergy Rash Verified 01/19/17 01:18 Home Medications Medication Instructions Recorded Confirmed Last Taken Type Cozaar 25 mg PO DAILY 07/14/15 01/19/17 01/18/17 History Keppra TAB 1,000 mg PO BID 07/14/15 01/19/17 01/18/17 History Nitrostat 0.4 mg SL Q5M PRN 07/14/15 01/19/17 Unknown History Pepcid 20 mg PO DAILY 07/14/15 01/19/17 01/18/17 History Percocet 10/325 mg 10 - 325 mg PO Q8H PRN 07/14/15 01/19/17 01/18/17 History ProAir HFA Inhaler 2 inh INHALATION QID PRN 07/14/15 01/19/17 01/18/17 History SEROquel 200 mg PO HS 07/14/15 01/19/17 01/18/17 History Symbicort 160-4.5 (Nf) 1 inh INHALATION BID 07/14/15 01/19/17 01/18/17 History metFORMIN [Glucophage] 500 mg PO BID 07/14/15 01/19/17 01/18/17 History ALBUTEROL Inhaler [ProAir HFA 1 puff IH BID PRN #1 inha 07/15/15 01/19/17 Rx Inhaler] Albuterol Sulfate [Albuterol 0.63% 0.63 mg IH TID PRN #1 box 07/15/15 01/19/17 01/18/17 Rx NEBS] Ipratropium [Atrovent NEB] 0.5 mg IH Q8HRT PRN #1 box 07/15/15 01/19/17 Rx Nebulizer Accessories [Aeroneb Go] 1 each MC DAILY PRN #1 each 07/15/1501/18/17 Rx Prednisone [predniSONE 10 mg 10 mg PO .TAPER #1 tab.ds.pk 01/22/17 Unknown Rx (6-Day Pack, 21 Tabs)] QUEtiapine [SEROquel] 200 mg PO QHS tablet 01/22/17 Unknown Rx QUEtiapine [SEROquel] 200 mg PO QHS tablet 01/22/17 Unknown Rx diphenhydrAMINE [Benadryl CAP] 25 mg PO QHS PRN #30 capsule 01/22/17 Unknown Rx oxyCODONE /ACETAMINOPHEN [Percocet 2 tab PO Q6H PRN #30 tablet 01/22/17 Unknown Rx 5/325 mg] Active Meds: Active Medications Albuterol/Ipratropium (Duoneb *Not For Prn Use*) 1 ampul IH Q6HRT ELROY Albuterol/Ipratropium (Duoneb *Not For Prn Use*) 1 ampul IH Q3H PRN PRN Reason: Wheezing Diphenhydramine HCl (Benadryl) 25 mg PO QHS PRN PRN Reason: Sleep Enoxaparin Sodium (Lovenox) 40 mg SUB-Q QDAY [facility] Last Admin: 01/23/17 14:58 Dose: 40 mg Miscellaneous Medication (Cozaar) 25 mg PO DAILY [facility] Miscellaneous Medication (Keppra Tab) 1,000 mg PO BID ELROY Miscellaneous Medication (Symbicort 160-4.5 (Nf)) 1 inh INHALATION BID [facility] Physical Examination Vital signs: Vital Signs Temp Pulse Resp BP Pulse Ox 98 F 90 32 H 190/133 98 01/23/17 07:43 01/23/17 07:43 01/23/17 07:43 01/23/17 07:43 01/23/17 07:43 Results - Laboratory Findings CBC and BMP: 01/23/17 08:13 01/23/17 08:13 ABG POC ABG pH 7.333 (7.35-7.45) L 01/23/17 12:00 POC ABG pCO2 51.5 (35-45) H 01/23/17 12:00 POC ABG pO2 86 (80-105) 01/23/17 12:00 POC ABG HCO3 27.3 01/23/17 12:00 POC ABG Total CO2 29 01/23/17 12:00 POC ABG O2 Sat 96 01/23/17 12:00 PT/INR, D-dimer PT 12.5 Sec. (12.2-14.9) 01/23/17 08:13 INR 0.94 (0.87-1.13) 01/23/17 08:13
[2017-01-23] MEDS ORDERED: PROVENTIL IH PRN (16:45)
[2017-01-23] MEDS ORDERED: COZAAR PO SCH ×2 (16:45→18:00)
[2017-01-23] MEDS ORDERED: ROCEPHIN 500 MG in NACL 0.9% 50 ML IV SCH (17:00)
[2017-01-23] MEDS ORDERED: DUONEB *Not for PRN Use IH SCH (17:30)
[2017-01-23] MEDS ORDERED: ROCEPHIN/NS 2 GM/100 ML 2 GM/100 ML BAG IV SCH (18:00)
[2017-01-23 18:36] VITALS: BP 169/79
[2017-01-23] MEDS ORDERED: BROVANA NEBU IH SCH (20:00)
[2017-01-23] MEDS ORDERED: PULMICORT IH SCH (20:00)
[2017-01-23] MEDS ORDERED: SYMBICORT INHALATION SCH (22:00)
[2017-01-23] MEDS ORDERED: KEPPRA PO SCH (22:00)
[2017-01-23] MEDS ORDERED: KEPPRA 1000 MG PO SCH (22:00)
--- NOTE | 2017-01-24 06:31 | Consultation ---
PULMONARY CRITICAL CARE CONSULT NOTE CONSULTING PHYSICIAN: GREGORY DAWSON M.D., ER Physician. REASON FOR CONSULTATION: Acute on chronic hypoxemic respiratory failure, altered mental status, status post witnessed seizure or pseudoseizure. CHIEF COMPLAINT AND HISTORY OF PRESENT ILLNESS: The patient is a 62-year-old -[place] female with past medical history indeed significant amongst other things for a diagnosis of COPD and congestive heart failure who actually was just discharged from this hospital yesterday. She had been admitted with a COPD exacerbation, and while in the hospital, she was set up with the hospice team. Apparently, she was reevaluated, it seems like she was prior on home hospice, presumably for advanced stage COPD. When she got home yesterday, according to her who is with her, she actually did have BiPAP or CPAP machine waiting for her at home, she does have a history of obstructive sleep apnea also, so that was waiting for her at home, but he said the place was a little stuffy, she started to get panicky and ultimately she developed again exacerbation of her chronic obstructive lung disease. She was brought into the Emergency Room, and at some point in the Emergency Room, according to the and her nurse, she was having trouble during a breathing treatment and she was getting anxious, ultimately she had what was described as a 30-45 second seizure, the nurse describes her as, her body arching, her eyes were rolling backwards, a little bit of foaming at the mouth. She got better again and after 45 seconds was put on BiPAP, since then, she has been doing fine. When I stopped by to see her, her was in the room, she was also there, she raised up her hand to acknowledge me. Her denies that her usual seizures are not of this type, and she does have a history of seizure disorder, but has been well controlled, otherwise. I do not have any history of vomiting or overt aspiration. She denies acute chest pain. The above is as much of the history of presentation as I have. PAST MEDICAL HISTORY: Chronic obstructive lung disease; history of obstructive sleep apnea; history of congestive heart failure; diabetes; history of a deep vein thrombosis, according to the records; history of lung and breast cancer as well as a history of seizures; history of asthma and history of COPD are all listed as past medical history. PAST SURGICAL HISTORY: She has had a hysterectomy. She has had a right mastectomy with implant. She has had lumber spine surgery. She is on chronic pain management. MEDICATIONS: She was on at the time I stopped by to see her, according to the medication administration record, included the following: She was on Lovenox 40 mg subcutaneous daily. She had received DuoNeb treatments while she was in the Emergency Room. She received Keppra 1 g IV and she received Solu-Medrol 125 mg IV x 1 dose. ALLERGIES: METRONIDAZOLE. NATURE OF THIS ALLERGY IS UNKNOWN. DIET: Well-built lady. She denies acute weight loss or gain in the preceding few weeks to months. FAMILY AND SOCIAL HISTORY: She lives in the community. She is . She does have a remote tobacco smoking history. She denies current alcohol, tobacco, or illicit drug use or abuse. Family history, otherwise noncontributory. REVIEW OF SYSTEMS: She had possible seizure-type activity while in the ER. She denies any acute chest pains at the time I saw her. No gross hematochezia or melena, no gross hematuria, no hematemesis, no hemoptysis. Complete 14-system review of systems obtained as best as I could, pertinent positives and/or negatives as in body of the history above, otherwise they are noncontributory. PHYSICAL EXAMINATION: VITAL SIGNS: At presentation, she is afebrile, temperature 98 degrees Fahrenheit, pulse was 90, respiratory rate was 32, blood pressure was , oxygen sats were 98%, inspired oxygen concentration was not recorded. HEAD, EYES, EARS, NOSE AND THROAT: Pupils are equal, round, about 2-3 mm, reactive to light. Extraocular muscle movements appeared intact. She had a bilevel positive air pressure ventilator machine mask over her face, unable to examine her oropharynx. NECK: Grossly there were no palpable lymph nodes in the supraclavicular, submandibular lymph node chains. No gross jugular venous distention. LUNGS: Auscultation of both lung cortez significant for diminished bilateral breath sounds, prolonged expiratory phase. No active wheezing. HEART: Heart sounds 1 and 2 are heard. At the time of my evaluation, there were regular rate and rhythm. ABDOMEN: Soft, full, bowel sounds positive, nontender. EXTREMITIES: Without overt digital clubbing, cyanosis, or pedal edema. NEUROLOGIC: Her exam was grossly nonfocal. LABORATORY DATA: From my review are as follows: White cell count 11,700, hemoglobin 13.3, hematocrit 40.4, platelet count 233. INR was 0.94. Arterial blood gas showed a pH of 7.33, pCO2 of 52, pO2 of 86,000 on 35% FiO2. It is unclear if that was done on BiPAP, but she currently is on BiPAP 18/10 with a backup rate of 22. Serum sodium was 140, potassium 4.1, chloride 101, bicarbonate 26, BUN 15, creatinine 0.5, and glucose 106. Radiographic studies have been reviewed. I have also reviewed the radiologist's interpretation. I do agree apart from evidence of hyperinflation and severe COPD, it does not appear that there is a new acute process. ASSESSMENT AND PLAN: We have an elderly female with multiple comorbidities who apparently on hospice. It was seen from the history, she has refused hospice care before and then agreed to hospice again, but she is back here in the hospital, which tells me that she might not have counted times yet with the hospice idea. It is unclear the nature of her malignancy diagnosis, it does seem that she has real severe COPD that would also be possibly appropriate for hospice care. From a respiratory standpoint, we will keep her on the bilevel positive airway ventilation machine. The plan will be to give her breaks during the day, use it at night, oxygen will be titrated to keep sats greater than or equal to about 92% to 94%. Aspiration precautions will be maintained. I will start her on long-acting bronchodilators. I will reduce the dose of systemic steroids because she may end up being on continuous BiPAP. We will watch her overnight in the intensive care unit and I do not fully understand whether she had a seizure or not. With a history of possible cancer, there is always the possibility of malignancy; however, her exam is nonfocal. We will follow clinically. Sputum, if she is coughing up any, will be sent for Gram stain culture and sensitivities. I see no acute indication for antibiotics at this time, she has just been treated for COPD exacerbation. Again, I see no acute indication for venous thromboembolic disorder workup. I think anxiety, the bad weather in her apartment, all contributed to an exacerbation of her baseline severe COPD. We will follow her clinically. From a cardiovascular standpoint, she is relatively hemodynamically stable. We will reintroduce her home antihypertensive medications. Acute coronary syndrome workup will be at the behest of the attending physician, but her troponin is within normal limits, I really will not be pushing it. From an infectious disease standpoint, no signs and symptoms of overwhelming sepsis, we will follow her off antibiotics. From a GI and nutritional standpoint, oral nutrition will be the feeding modality of choice. She will be placed on GI prophylaxis. Aspiration precautions will be maintained. From a renal standpoint, no major electrolyte abnormalities, inputs and outputs will be followed, electrolytes will be corrected as necessary. From a [employer] standpoint, the examination is grossly nonfocal at this point, she is appropriately with it, and following commands appropriately. She does have a history of seizures. We will continue her anti-seizure medication, will continue Keppra, and I believe 1 g p.o. b.i.d. and we will follow her clinically. From a general and hospital healthcare maintenance standpoint, she is going to be put on gastrointestinal and deep vein thrombosis prophylaxis. I do note a history of deep vein thrombosis, I will get more information from the patient. It is unclear if she had one time deep vein thrombosis, has been treated for it. It is unclear if there is any indication for continued treatment of continued full anticoagulation. Her home medications did not include any full anticoagulant, we will put her on deep vein thrombosis prophylaxis while she is in the hospital. Flu and pneumonia vaccination will be per protocol. Thank you very much for the consult Dr. Dawson. We will follow along and make further recommendations as picture progresses/becomes clearer. At this point, she is critically ill, on life-sustaining interventions including continuous noninvasive ventilation, at risk for further deterioration including . I spent about 30-35 minutes of critical care time without overlap and excluding any procedural time that may be necessary. JOB# [id number] AGUEDA/ROBBI
--- NOTE | 2017-02-03 00:20 | Discharge Summary ---
Providers - Providers Date of discharge: 01/24/17 Attending physician: Maryjane Grace 01/23/17 08:50 Consult to Case Management [CONS] Routine Services Needed at Discharge: Sail Maker Notified:: yes Was contact made?: Yes Time called:: 08:51 01/23/17 14:45 Consult to Physician [CONS] Urgent Consulting Provider: BASIM ARAUJO Reason For Exam: respiratory failure Place consult to:: [facility] SHIPMASTER Notified:: yes Was contact made?: Yes If yes, spoke with:: DR Caldera Time called:: 14:30 Primary care physician: POWER REGULATOR Hospitalization Condition: Stable Procedures: Was put on Bipap but was removing it saying she is better Hospital course: Assessment and Plan Advance Directives: Yes (DNR) Plan of care discussed with patient/family: Yes - Patient Problems (1) Acute respiratory failure with hypoxia Status: Acute Plan to address problem: Patient initiated on Nebulizer treatments Solumedrol and IV ABX (2) COPD exacerbation Status: Acute Plan to address problem: As Above (3) DVT prophylaxis Status: Acute Plan to address problem: Initiated on Lovenox (4) Generalized seizure Status: Chronic Plan to address problem: Cont Keppra (5) Noncompliance Status: Acute Plan to address problem: Patient very non compliant (6) Discharge planning issues Status: Acute Plan to address problem: patient wants to be in Hospice and be discharged Disposition: DC-50 TO HOSPICE (HOME) - Discharge Diagnoses (1) Acute respiratory failure with hypoxia Status: Acute (2) COPD exacerbation Status: Acute (3) DVT prophylaxis Status: Acute (4) Generalized seizure Status: Chronic (5) Noncompliance Status: Acute (6) Discharge planning issues Status: Acute Core Measure Documentation - Palliative Care Palliative Care/ Comfort Measures: Hospice Care - Core Measures Any of the following diagnoses?: none Exam - Constitutional Vitals: Temp Pulse Resp BP Pulse Ox 98 F 107 H 30 H 169/79 98 01/23/17 07:43 01/23/17 18:47 01/23/17 18:47 01/23/17 18:20 01/23/17 18:45 General appearance: Present: no acute distress, well-nourished - EENT Eyes: Present: PERRL ENT: hearing intact, clear oral mucosa - Neck Neck: Present: supple, normal ROM - Respiratory Respiratory effort: normal Respiratory: bilateral: diminished, rhonchi - Cardiovascular Heart rate: 86 Rhythm: regular Heart Sounds: Present: S1 & S2. Absent: rub, click - Extremities Extremities: no ischemia, pulses intact, pulses symmetrical, No edema Peripheral Pulses: within normal limits - Abdominal General gastrointestinal: Present: soft, non-tender, non-distended, normal bowel sounds Female genitourinary: Present: normal - Integumentary Integumentary: Present: clear, warm, dry - Musculoskeletal Musculoskeletal: gait normal, strength equal bilaterally - Psychiatric Psychiatric: appropriate mood/affect, intact judgment & insight - Neurologic Neurologic: CNII-XII intact, moves all extremities - Allied Health Allied health notes reviewed: nursing, case management Plan Activity: advance as tolerated Weight Bearing Status: Full Weight Bearing Diet: low fat, low cholesterol, low salt Follow up with: PRIMARY CARE, [Primary Care Provider] - 3-5 Days
== END 2017-01-23 22:45 | disposition hospice, home (50) ==
LOC: ED 07:24 → CC1 13:21 → UNDOADMIN 13:21 → ED 22:45
DX: J96.02 Acute respiratory failure with hypercapnia (principal); G40.909 Epilepsy, unspecified, not intractable, without status epilepticus; Z86.73 Personal history of transient ischemic attack (TIA), and cerebral infarction without residual deficits; I25.2 Old myocardial infarction; E11.9 Type 2 diabetes mellitus without complications; C34.90 Malignant neoplasm of unspecified part of unspecified bronchus or lung; I50.9 Heart failure, unspecified; Z87.891 Personal history of nicotine dependence; I10 Essential (primary) hypertension; Z88.8 Allergy status to other drugs, medicaments and biological substances
CPT/HCPCS: 36415; 71020; 80048; 82803; 82962; 84484; 85025; 85610; 93005; 93010; 94640; 94644; 94760; 96365; 96372; 96375; 99291; 99292; J1650; J1953; J2060; J2930; J3475; 96374; J0696

== ENCOUNTER 2017-02-28 20:12 | Emergency (ER) | payer MEDICAID ==
[2017-02-28] MEDS ORDERED: PROVENTIL IH ONE (21:59)
[2017-02-28] MEDS ORDERED: ATROVENT IH ONE (21:59)
[2017-02-28 22:35] LABS: Hematocrit 37.6 % (30.3-42.9); Mean Corpuscular HGB Conc 32 % (30-34); Mean Corpuscular Hemoglobin 28 pg (28-32); Mean Corpuscular Volume 88 fl (79-97); Platelet Count 324 K/mm3 (140-440); Red Blood Count 4.27 M/mm3 (3.65-5.03); Red Cell Distribution Width 14.7 % (13.2-15.2); White Blood Count 9.8 K/mm3 (4.5-11.0)
[2017-02-28 22:41] LABS: Anion Gap 17 mmol/L; BUN/Creatinine Ratio 24; Blood Urea Nitrogen 17 mg/dL (7-17); Calcium 9.4 mg/dL (8.4-10.2); Carbon Dioxide 26 mmol/L (22-30); Chloride 104.2 mmol/L (98-107); Glucose 218 mg/dL (65-100); Potassium 4.7 mmol/L (3.6-5.0); Sodium 142 mmol/L (137-145)
[2017-02-28 23:08] LABS: Anisocytosis 1+; Basophils % (Manual) 0 % (0.0-1.8); Blastocytes % (Manual) 0 %; Eosinophils % (Manual) 0 % (0.0-4.3); Hypochromasia 1+; Total Cells Counted Percent 0
[2017-02-28 23:09] LABS: Polychromasia Few
[2017-02-28 23:13] LABS: Diff Status Complete; Elliptocytes 1+; Platelet Estimate Consistent w Auto
--- NOTE | 2017-03-01 04:21 | Emergency Department Report ---
ED General Adult HPI - General Chief complaint: Dyspnea/Respdistress Stated complaint: BEVERLY Time Seen by Provider: 02/28/17 21:20 Source: patient, EMS Mode of arrival: Stretcher Limitations: No Limitations - History of Present Illness Initial comments: Patient is a 62-year-old female past medical history of COPD who presents with shortness of breath. Patient states that her shortness of breath started today she tried taking a breathing treatment by it didn't relieve her shortness of breath. Patient was just discharged from the [place] emergency department and she was sent home with prednisone and albuterol inhaler. Patient states that she has a condom fell but felt short of breath so she decided to come to the emergency department. Patient is not wheezing she signed 99% on room air and she sleeping comfortably. Patient states that shortness of breath is moderate it's worse with leg sores show an and with weather change is better with albuterol and breathing treatments. Patient denies being in any pain. Severity scale (0 -10): 0 - Related Data Home Medications Medication Instructions Recorded Confirmed Last Taken Acetaminophen [Tylenol Arthritis] 650 mg PO Q6H 02/25/17 03/01/17 Unknown Cyanocobalamin [Vitamin B-12] 1 ml IM QMONTH 02/25/17 03/01/17 Unknown Hyoscyamine Subl [Levsin Sl 0.125 0.125 mg SL Q4HR PRN 02/25/17 03/01/17 Unknown TAB] LORazepam [Ativan] 1 mg PO Q4H PRN 02/25/17 03/01/17 Unknown Morphine Concentrate [Roxanol Conc 0.25 ml PO Q2H PRN 02/25/17 03/01/17 02/24/17 20 MG/ML ORAL LIQ] Ondansetron [Zofran Odt] 4 mg PO Q4H PRN 02/25/17 03/01/17 Unknown Promethazine [Phenergan TAB] 25 mg PO Q4H PRN 02/25/17 03/01/17 Unknown Sennosides/Docusate Sodium [Senna 1 each PO HS PRN 02/25/17 03/01/17 Unknown S Tablet] Previous Rx's Medication Instructions Recorded Last Taken Type ALBUTEROL NEB's [Proventil 0.083% 1 neb IH Q6H #60 nebu 02/26/17 Unknown Rx NEBS] Acetaminophen [Non-Aspirin] 325 mg PO Q6H PRN #20 tablet 02/26/17 Unknown Rx Bisacodyl [Dulcolax suppos] 10 mg OK QDAY PRN #10 supp.rect 02/26/17 Unknown Rx Haloperidol [Haldol] 1 mg PO Q4H PRN #12 tablet 02/26/17 Unknown Rx Nebulizer [Aeroneb Go Nebulizer] 1 each MC BID #1 each 02/26/17 Unknown Rx Prednisone [predniSONE 10 mg 10 mg PO .TAPER #1 tab.ds.pk 02/26/17 Unknown Rx (6-Day Pack, 21 Tabs)] diphenhydrAMINE [Benadryl CAP] 25 mg PO QHS PRN #30 capsule 02/26/17 Unknown Rx levETIRAcetam [Keppra TAB] 1,000 mg PO BID #60 tab 02/26/17 Unknown Rx oxyCODONE [Roxicodone TAB] 5 mg PO Q6HR PRN #12 tablet 02/26/17 Unknown Rx Allergies Allergy/AdvReac Type Severity Reaction Status Date / Time metronidazole [From Flagyl] Allergy Rash Verified 02/24/17 20:12 ED Review of Systems ROS: Stated complaint: BEVERLY Other details as noted in HPI Constitutional: denies: chills, fever Eyes: denies: eye pain, eye discharge, vision change ENT: denies: ear pain, throat pain Respiratory: shortness of breath. denies: cough, wheezing Cardiovascular: denies: chest pain, palpitations Endocrine: no symptoms reported Gastrointestinal: denies: abdominal pain, nausea, diarrhea Genitourinary: denies: urgency, dysuria, discharge Musculoskeletal: denies: back pain, joint swelling, arthralgia Skin: denies: rash, lesions Neurological: denies: headache, weakness, paresthesias Psychiatric: denies: anxiety, depression Hematological/Lymphatic: denies: easy bleeding, easy bruising ED Past Medical Hx - Past Medical History Previous Medical History?: Yes Hx Hypertension: Yes Hx CVA: Yes Hx Heart Attack/AMI: Yes Hx Congestive Heart Failure: Yes Hx Diabetes: Yes Hx Deep Vein Thrombosis: Yes Hx Pulmonary Embolism: No Hx Renal Disease: No Hx Seizures: Yes Hx Kidney Stones: No Hx Asthma: Yes Hx COPD: Yes Hx Tuberculosis: No Hx Dementia: No Hx HIV: No - Surgical History Past Surgical History?: Yes Hx Coronary Stent: No Hx Open Heart Surgery: No Hx Pacemaker: No Hx Internal Defibrillator: No Hx Cholecystectomy: No Hx Appendectomy: No Hx Breast Surgery: Yes (Right Mastectomy 2011) Additional Surgical History: Hysterectomy, R mastectomy with implant, Lumbar spine surgery, chronic pain managment - Social History Smoking Status: Former Smoker Substance Use Type: None - Medications Home Medications: Home Medications Medication Instructions Recorded Confirmed Last Taken Type Acetaminophen [Tylenol Arthritis] 650 mg PO Q6H 02/25/17 03/01/17 Unknown History Cyanocobalamin [Vitamin B-12] 1 ml IM QMONTH 02/25/17 03/01/17 Unknown History Hyoscyamine Subl [Levsin Sl 0.125 0.125 mg SL Q4HR PRN 02/25/17 03/01/17 Unknown History TAB] LORazepam [Ativan] 1 mg PO Q4H PRN 02/25/17 03/01/17 Unknown History Morphine Concentrate [Roxanol Conc 0.25 ml PO Q2H PRN 02/25/17 03/01/17 History 20 MG/ML ORAL LIQ] Ondansetron [Zofran Odt] 4 mg PO Q4H PRN 02/25/17 03/01/17 Unknown History Promethazine [Phenergan TAB] 25 mg PO Q4H PRN 02/25/17 03/01/17 Unknown History Sennosides/Docusate Sodium [Senna 1 each PO HS PRN 02/25/17 03/01/17 Unknown History S Tablet] ALBUTEROL NEB's [Proventil 0.083% 1 neb IH Q6H #60 nebu 02/26/17 03/01/17 Unknown Rx NEBS] Acetaminophen [Non-Aspirin] 325 mg PO Q6H PRN #20 tablet 02/26/17 03/01/17 Unknown Rx Bisacodyl [Dulcolax suppos] 10 mg OK QDAY PRN #10 supp.rect 02/26/17 03/01/17 Unknown Rx Haloperidol [Haldol] 1 mg PO Q4H PRN #12 tablet 02/26/17 03/01/17 Unknown Rx Nebulizer [Aeroneb Go Nebulizer] 1 each MC BID #1 each 02/26/17 03/01/17 Unknown Rx Prednisone [predniSONE 10 mg 10 mg PO .TAPER #1 tab.ds.pk 02/26/17 03/01/17 Unknown Rx (6-Day Pack, 21 Tabs)] diphenhydrAMINE [Benadryl CAP] 25 mg PO QHS PRN #30 capsule 02/26/17 03/01/17 Unknown Rx levETIRAcetam [Keppra TAB] 1,000 mg PO BID #60 tab 02/26/17 03/01/17 Unknown Rx oxyCODONE [Roxicodone TAB] 5 mg PO Q6HR PRN #12 tablet 02/26/17 03/01/17 Unknown Rx ED Physical Exam - General Limitations: No Limitations General appearance: alert, in no apparent distress - Head Head exam: Present: atraumatic, normocephalic - Eye Eye exam: Present: normal appearance - ENT ENT exam: Present: mucous membranes moist - Neck Neck exam: Present: normal inspection - Respiratory Respiratory exam: Present: normal lung sounds bilaterally. Absent: respiratory distress - Cardiovascular Cardiovascular Exam: Present: regular rate, normal rhythm. Absent: systolic murmur, diastolic murmur, rubs, gallop - GI/Abdominal GI/Abdominal exam: Present: soft, normal bowel sounds - Extremities Exam Extremities exam: Present: normal inspection - Back Exam Back exam: Present: normal inspection - Neurological Exam Neurological exam: Present: alert, oriented X3 - Psychiatric Psychiatric exam: Present: normal affect, normal mood - Skin Skin exam: Present: warm, dry, intact, normal color. Absent: rash ED Course Vital Signs 02/28/17 02/28/17 02/28/17 21:04 21:16 21:30 Pulse Rate 104 H 83 89 Pulse Rate [ Throughout] Respiratory 16 21 21 Rate Respiratory Rate [ Throughout] Blood Pressure 147/63 148/58 Blood Pressure [Left] O2 Sat by Pulse 92 94 Oximetry 02/28/17 02/28/17 02/28/17 21:46 22:00 22:16 Pulse Rate 88 88 85 Pulse Rate [ Throughout] Respiratory 21 22 24 Rate Respiratory Rate [ Throughout] Blood Pressure 148/58 139/70 139/70 Blood Pressure [Left] O2 Sat by Pulse 95 92 95 Oximetry 02/28/17 02/28/17 02/28/17 22:30 22:45 23:04 Pulse Rate 85 Pulse Rate [ 86 Throughout] Respiratory 22 16 Rate Respiratory 20 Rate [ Throughout] Blood Pressure 139/70 Blood Pressure [Left] O2 Sat by Pulse 95 96 Oximetry 03/01/17 00:00 Pulse Rate 92 H Pulse Rate [ Throughout] Respiratory 20 Rate Respiratory Rate [ Throughout] Blood Pressure Blood Pressure 157/63 [Left] O2 Sat by Pulse 95 Oximetry ED Medical Decision Making - Lab Data Result diagrams: 02/28/17 22:08 02/28/17 22:08 Lab Results 02/28/17 02/28/17 Range/Units 22:08 22:08 WBC 9.8 (4.5-11.0) K/mm3 RBC 4.27 (3.65-5.03) M/mm3 Hgb 12.0 (10.1-14.3) gm/dl Hct 37.6 (30.3-42.9) % MCV 88 (79-97) fl MCH 28 (28-32) pg MCHC 32 (30-34) % RDW 14.7 (13.2-15.2) % Plt Count 324 (140-440) K/mm3 Add Manual Diff Complete Total Counted 100 Seg Neutrophils % Arts Education Teacher Seg Neuts % (Manual) 94.0 H (40.0-70.0) % Band Neutrophils % 0 % Lymphocytes % (Manual) 6.0 L (13.4-35.0) % Reactive Lymphs % (Man) 0 % Monocytes % (Manual) 0 (0.0-7.3) % Eosinophils % (Manual) 0 (0.0-4.3) % Basophils % (Manual) 0 (0.0-1.8) % Metamyelocytes % 0 % Myelocytes % 0 % Promyelocytes % 0 % Blast Cells % 0 % Nucleated RBC % Not Reportable Seg Neutrophils # Man 9.2 H (1.8-7.7) K/mm3 Band Neutrophils # 0.0 K/mm3 Lymphocytes # (Manual) 0.6 L (1.2-5.4) K/mm3 Abs React Lymphs (Man) 0.0 K/mm3 Monocytes # (Manual) 0.0 (0.0-0.8) K/mm3 Eosinophils # (Manual) 0.0 (0.0-0.4) K/mm3 Basophils # (Manual) 0.0 (0.0-0.1) K/mm3 Metamyelocytes # 0.0 K/mm3 Myelocytes # 0.0 K/mm3 Promyelocytes # 0.0 K/mm3 Blast Cells # 0.0 K/mm3 WBC Morphology Not Reportable Hypersegmented Neuts Not Reportable Hyposegmented Neuts Not Reportable Hypogranular Neuts Not Reportable Smudge Cells Not Reportable Toxic Granulation Not Reportable Toxic Vacuolation Not Reportable Dohle Bodies Not Reportable Pelger-Huet Anomaly Not Reportable Varinder Rods Not Reportable Platelet Estimate Consistent w auto Clumped Platelets Not Reportable Plt Clumps, EDTA Not Reportable Large Platelets Not Reportable Giant Platelets Not Reportable Platelet Satelliting Not Reportable Plt Morphology Comment Not Reportable RBC Morphology Not Reportable Dimorphic RBCs Not Reportable Polychromasia Few Hypochromasia 1+ Poikilocytosis Not Reportable Anisocytosis 1+ Microcytosis Not Reportable Macrocytosis Not Reportable Spherocytes Not Reportable Pappenheimer Bodies Not Reportable Sickle Cells Not Reportable Target Cells Not Reportable Tear Drop Cells Not Reportable Ovalocytes Not Reportable Helmet Cells Not Reportable Mcfarland-[place] Bodies Not Reportable [place] Rings Not Reportable [place] Cells Not Reportable Bite Cells Not Reportable Crenated Cell Not Reportable Elliptocytes 1+ Acanthocytes (Spur) Not Reportable Rouleaux Not Reportable Hemoglobin C Crystals Not Reportable Schistocytes Not Reportable Malaria parasites Not Reportable Robert Bodies Not Reportable Hem Pathologist Commnt No Sodium 142 (137-145) mmol/L Potassium 4.7 (3.6-5.0) mmol/L Chloride 104.2 (98-107) mmol/L Carbon Dioxide 26 (22-30) mmol/L Anion Gap 17 mmol/L BUN 17 (7-17) mg/dL Creatinine 0.7 (0.7-1.2) mg/dL Estimated GFR > 60 ml/min BUN/Creatinine Ratio 24 % Glucose 218 H (65-100) mg/dL Calcium 9.4 (8.4-10.2) mg/dL Troponin T < 0.010 (0.00-0.029) ng/mL - EKG Data -: EKG Interpreted by Oh - EKG Data 03/01/17 04:21 EKG shows normal sinus rhythm normal axis and nonspecific T-wave abnormality in lateral leads no ST segment elevation - Medical Decision Making Chief medical diagnosis: COPD exacerbation Differential diagnosis: Electrolyte abnormality, non-STEMI I will give patient breathing treatment, CBC, CMP and EKG Patient's blood work is unremarkable except for mild hyperglycemia. I'll send patient home as she is feeling better and is rested well. Patient was at a long-term and is requesting social work services before she goes back to the long-term. Patient does not need any pred[facility]one as [facility]. Patient has never wheezed here in the ER. Discussed plan for discharge with patient she agrees with plan. Additional verbal discharge instructions were given. Critical care attestation.: If time is entered above; I have spent that time in minutes in the direct care of this critically ill patient, excluding procedure time. ED Disposition Clinical Impression: COPD exacerbation Disposition: DC-01 TO HOME OR SELFCARE Is pt being admited?: No Does the pt Need Aspirin: No Condition: Stable Instructions: Chronic Obstructive Pulmonary Disease (ED) Referrals: CARLYLE NESBITT MD [Staff Physician] - 3-5 Days
[2017-03-01 11:12] VITALS: BP 142/81
[2017-03-01] MEDS ORDERED: MOTRIN PO ONE (11:12)
== END 2017-03-01 11:24 | disposition home or self-care (01) ==
LOC: ED 20:12
DX: J44.1 Chronic obstructive pulmonary disease with (acute) exacerbation (principal); I11.0 Hypertensive heart disease with heart failure; I50.9 Heart failure, unspecified; E11.9 Type 2 diabetes mellitus without complications; Z87.891 Personal history of nicotine dependence; Z79.82 Long term (current) use of aspirin; Z88.8 Allergy status to other drugs, medicaments and biological substances
CPT/HCPCS: 36415; 80048; 84484; 85007; 85025; 93005; 93010; 94640; 94644; 99284

== ENCOUNTER 2017-03-01 11:58 | Emergency (ER) | payer MEDICAID ==
[2017-03-01] MEDS ORDERED: DUONEB *Not for PRN Use IH ONE ×3 (12:26→12:56)
[2017-03-01] MEDS ORDERED: MAGNESIUM SULFATE 2GM/50ML 2 GM/50 ML BAG IV ONE (12:56)
[2017-03-01] MEDS ORDERED: ATIVAN IV ONE (12:56)
[2017-03-01 13:20] LABS: Basophils % (Auto) 0.8 % (0.0-1.8); Eosinophils % (Auto) 0.5 % (0.0-4.3); Hemoglobin 12.7 gm/dl (10.1-14.3); Mean Corpuscular HGB Conc 33 % (30-34); Mean Corpuscular Hemoglobin 29 pg (28-32); Mean Corpuscular Volume 88 fl (79-97); Platelet Count 320 K/mm3 (140-440); Red Blood Count 4.33 M/mm3 (3.65-5.03); White Blood Count 13.9 K/mm3 (4.5-11.0)
[2017-03-01 13:28] LABS: Anion Gap 18 mmol/L; BUN/Creatinine Ratio 23; Blood Urea Nitrogen 16 mg/dL (7-17); Calcium 9.1 mg/dL (8.4-10.2); Carbon Dioxide 23 mmol/L (22-30); Chloride 108.3 mmol/L (98-107); Glucose 90 mg/dL (65-100); Potassium 3.7 mmol/L (3.6-5.0); Sodium 146 mmol/L (137-145)
[2017-03-01 13:44] LABS: Alanine Aminotransferase 15 units/L (7-56); Albumin/Globulin Ratio 1.6 %; Alkaline Phosphatase 100 units/L (35-129); Total Protein 6.5 g/dL (6.3-8.2)
[2017-03-01 13:46] LABS: Bilirubin,Direct < 0.2 mg/dL (0-0.2); Bilirubin,Indirect 0.3 mg/dL
[2017-03-01 15:31] VITALS: BP 134/98
--- NOTE | 2017-03-01 16:03 | Emergency Department Report ---
ED General Adult HPI - General Chief complaint: Dyspnea/Respdistress Stated complaint: BREATHING TREATMENT Time Seen by Provider: 03/01/17 12:22 Source: patient Mode of arrival: Wheelchair Limitations: No Limitations - History of Present Illness Initial comments: Patient was seen yesterday in the emergency department for her wheezing. She remained in the waiting room and started to wheeze again. She's had a recent admission. She denies any other symptoms. She requested a breathing treatment at triage. She was brought back to the treatment area. She also states that she is anxious. -: Gradual Associated Symptoms: denies other symptoms - Related Data Home Medications Medication Instructions Recorded Confirmed Last Taken Acetaminophen [Tylenol Arthritis] 650 mg PO Q6H 02/25/17 03/01/17 Unknown Cyanocobalamin [Vitamin B-12] 1 ml IM QMONTH 02/25/17 03/01/17 Unknown Hyoscyamine Subl [Levsin Sl 0.125 0.125 mg SL Q4HR PRN 02/25/17 03/01/17 Unknown TAB] LORazepam [Ativan] 1 mg PO Q4H PRN 02/25/17 03/01/17 Unknown Morphine Concentrate [Roxanol Conc 0.25 ml PO Q2H PRN 02/25/17 03/01/17 02/24/17 20 MG/ML ORAL LIQ] Ondansetron [Zofran Odt] 4 mg PO Q4H PRN 02/25/17 03/01/17 Unknown Promethazine [Phenergan TAB] 25 mg PO Q4H PRN 02/25/17 03/01/17 Unknown Sennosides/Docusate Sodium [Senna 1 each PO HS PRN 02/25/17 03/01/17 Unknown S Tablet] Previous Rx's Medication Instructions Recorded Last Taken Type ALBUTEROL NEB's [Proventil 0.083% 1 neb IH Q6H #60 nebu 02/26/17 Unknown Rx NEBS] Acetaminophen [Non-Aspirin] 325 mg PO Q6H PRN #20 tablet 02/26/17 Unknown Rx Bisacodyl [Dulcolax suppos] 10 mg GA QDAY PRN #10 supp.rect 02/26/17 Unknown Rx Haloperidol [Haldol] 1 mg PO Q4H PRN #12 tablet 02/26/17 Unknown Rx Nebulizer [Aeroneb Go Nebulizer] 1 each MC BID #1 each 02/26/17 Unknown Rx Prednisone [predniSONE 10 mg 10 mg PO .TAPER #1 tab.ds.pk 02/26/17 Unknown Rx (6-Day Pack, 21 Tabs)] diphenhydrAMINE [Benadryl CAP] 25 mg PO QHS PRN #30 capsule 02/26/17 Unknown Rx levETIRAcetam [Keppra TAB] 1,000 mg PO BID #60 tab 02/26/17 Unknown Rx oxyCODONE [Roxicodone TAB] 5 mg PO Q6HR PRN #12 tablet 02/26/17 Unknown Rx ALBUTEROL Inhaler [ProAir HFA 2 puff IH Q4H PRN #1 inhalation 03/01/17 Unknown Rx Inhaler] predniSONE [Deltasone] 40 mg PO QDAY #10 tab 03/01/17 Unknown Rx Allergies Allergy/AdvReac Type Severity Reaction Status Date / Time metronidazole [From Flagyl] Allergy Rash Verified 02/24/17 20:12 ED Review of Systems ROS: Stated complaint: BREATHING TREATMENT Other details as noted in HPI Comment: All other systems reviewed and negative Respiratory: wheezing Psychiatric: anxiety ED Past Medical Hx - Past Medical History Previous Medical History?: Yes Hx Hypertension: Yes Hx CVA: Yes Hx Heart Attack/AMI: Yes Hx Congestive Heart Failure: Yes Hx Diabetes: Yes Hx Deep Vein Thrombosis: Yes Hx Pulmonary Embolism: No Hx Renal Disease: No Hx Seizures: Yes Hx Kidney Stones: No Hx Asthma: Yes Hx COPD: Yes Hx Tuberculosis: No Hx Dementia: No Hx HIV: No - Surgical History Past Surgical History?: Yes Hx Coronary Stent: No Hx Open Heart Surgery: No Hx Pacemaker: No Hx Internal Defibrillator: No Hx Cholecystectomy: No Hx Appendectomy: No Hx Breast Surgery: Yes (Right Mastectomy 2011) Additional Surgical History: Hysterectomy, R mastectomy with implant, Lumbar spine surgery, chronic pain managment - Social History Smoking Status: Never Smoker Substance Use Type: None - Medications Home Medications: Home Medications Medication Instructions Recorded Confirmed Last Taken Type Acetaminophen [Tylenol Arthritis] 650 mg PO Q6H 02/25/17 03/01/17 Unknown History Cyanocobalamin [Vitamin B-12] 1 ml IM QMONTH 02/25/17 03/01/17 Unknown History Hyoscyamine Subl [Levsin Sl 0.125 0.125 mg SL Q4HR PRN 02/25/17 03/01/17 Unknown History TAB] LORazepam [Ativan] 1 mg PO Q4H PRN 02/25/17 03/01/17 Unknown History Morphine Concentrate [Roxanol Conc 0.25 ml PO Q2H PRN 02/25/17 03/01/17 History 20 MG/ML ORAL LIQ] Ondansetron [Zofran Odt] 4 mg PO Q4H PRN 02/25/17 03/01/17 Unknown History Promethazine [Phenergan TAB] 25 mg PO Q4H PRN 02/25/17 03/01/17 Unknown History Sennosides/Docusate Sodium [Senna 1 each PO HS PRN 02/25/17 03/01/17 Unknown History S Tablet] ALBUTEROL NEB's [Proventil 0.083% 1 neb IH Q6H #60 nebu 02/26/17 03/01/17 Unknown Rx NEBS] Acetaminophen [Non-Aspirin] 325 mg PO Q6H PRN #20 tablet 02/26/17 03/01/17 Unknown Rx Bisacodyl [Dulcolax suppos] 10 mg GA QDAY PRN #10 supp.rect 02/26/17 03/01/17 Unknown Rx Haloperidol [Haldol] 1 mg PO Q4H PRN #12 tablet 02/26/17 03/01/17 Unknown Rx Nebulizer [Aeroneb Go Nebulizer] 1 each MC BID #1 each 02/26/17 03/01/17 Unknown Rx Prednisone [predniSONE 10 mg 10 mg PO .TAPER #1 tab.ds.pk 02/26/17 03/01/17 Unknown Rx (6-Day Pack, 21 Tabs)] diphenhydrAMINE [Benadryl CAP] 25 mg PO QHS PRN #30 capsule 02/26/17 03/01/17 Unknown Rx levETIRAcetam [Keppra TAB] 1,000 mg PO BID #60 tab 02/26/17 03/01/17 Unknown Rx oxyCODONE [Roxicodone TAB] 5 mg PO Q6HR PRN #12 tablet 02/26/17 03/01/17 Unknown Rx ALBUTEROL Inhaler [ProAir HFA 2 puff IH Q4H PRN #1 inhalation 03/01/17 Unknown Rx Inhaler] predniSONE [Deltasone] 40 mg PO QDAY #10 tab 03/01/17 Unknown Rx ED Physical Exam - General Limitations: No Limitations General appearance: alert, in no apparent distress - Head Head exam: Present: atraumatic, normocephalic - Eye Eye exam: Present: normal appearance. Absent: scleral icterus - ENT ENT exam: Present: mucous membranes moist - Neck Neck exam: Present: normal inspection - Respiratory Respiratory exam: Present: wheezes. Absent: respiratory distress - Cardiovascular Cardiovascular Exam: Present: regular rate, normal rhythm. Absent: systolic murmur, diastolic murmur, rubs, gallop - GI/Abdominal GI/Abdominal exam: Present: soft, normal bowel sounds. Absent: distended, tenderness, guarding, rebound, rigid - Extremities Exam Extremities exam: Present: normal inspection, normal capillary refill. Absent: pedal edema, joint swelling - Back Exam Back exam: Present: normal inspection. Absent: CVA tenderness (R), CVA tenderness (L) - Neurological Exam Neurological exam: Present: alert, oriented X3, CN II-XII intact. Absent: motor sensory deficit - Psychiatric Psychiatric exam: Present: normal affect, normal mood - Skin Skin exam: Present: warm, dry, intact, normal color. Absent: rash ED Course Vital Signs 03/01/17 03/01/17 03/01/17 12:00 12:20 13:04 Temperature 98 F Pulse Rate 105 H Pulse Rate [ 107 H Throughout] Respiratory 20 22 Rate Respiratory 26 H Rate [ Throughout] Blood Pressure 182/100 Blood Pressure [Left] O2 Sat by Pulse 97 97 Oximetry 03/01/17 03/01/17 13:32 15:30 Temperature 98.7 F Pulse Rate 88 Pulse Rate [ 104 H Throughout] Respiratory 18 Rate Respiratory 22 Rate [ Throughout] Blood Pressure Blood Pressure 134/98 [Left] O2 Sat by Pulse 93 Oximetry - Reevaluation(s) Reevaluation #1: Patient was given a neb prior to my arrival. When I catheter. She is complaining of anxiety and she had some increased work of breathing and wheezing. She was given 2 more nebs magnesium and steroids. She was given a small dose of Ativan. Her wheezing resolved. She is appropriate for discharge. 10/29/17 16:13 ED Medical Decision Making - Lab Data Result diagrams: 03/01/17 13:06 03/01/17 13:06 Laboratory Results - last 24 hr 03/01/17 03/01/17 03/01/17 13:06 13:06 13:06 WBC 13.9 H RBC 4.33 Hgb 12.7 Hct 38.0 MCV 88 MCH 29 MCHC 33 RDW 15.0 Plt Count 320 Lymph % (Auto) 16.0 Elbert % (Auto) 4.9 Eos % (Auto) 0.5 Baso % (Auto) 0.8 Lymph # 2.2 Elbert # 0.7 Eos # 0.1 Baso # 0.1 Seg Neutrophils % 77.8 H Seg Neutrophils # 10.8 H Sodium 146 H Potassium 3.7 D Chloride 108.3 H Carbon Dioxide 23 Anion Gap 18 BUN 16 Creatinine 0.7 Estimated GFR > 60 BUN/Creatinine Ratio 23 Glucose 90 Calcium 9.1 Magnesium 2.30 Total Bilirubin 0.50 Direct Bilirubin < 0.2 Indirect Bilirubin 0.3 AST 13 ALT 15 Alkaline Phosphatase 100 Total Protein 6.5 Albumin 4.0 Albumin/Globulin Ratio 1.6 Critical care attestation.: If time is entered above; I have spent that time in minutes in the direct care of this critically ill patient, excluding procedure time. ED Disposition Clinical Impression: COPD with acute exacerbation Disposition: DC- TO HOME OR SELFCARE Is pt being admited?: No Does the pt Need Aspirin: No Condition: Stable Instructions: Chronic Obstructive Pulmonary Disease (ED) Additional Instructions: Follow-up and has outside medical clinic. Return any acute change or problems. Rx as directed. Prescriptions: ALBUTEROL Inhaler [ProAir HFA Inhaler] 2 puff IH Q4H PRN #1 inhalation PRN Reason: Shortness Of Breath predniSONE [Deltasone] 40 mg PO QDAY #10 tab Referrals: PRIMARY CARE, [Primary Care Provider] - 3-5 Days [facility] [Provider Group] - 3-5 Days Time of Disposition: 16:14
[2017-03-01] MEDS ORDERED: PROVENTIL IH ONE (16:42)
[2017-03-01] MEDS ORDERED: ATIVAN PO ONE (16:42)
== END 2017-03-01 17:37 | disposition home or self-care (01) ==
LOC: ED 11:58
DX: J44.1 Chronic obstructive pulmonary disease with (acute) exacerbation (principal); I10 Essential (primary) hypertension; I63.9 Cerebral infarction, unspecified; I25.2 Old myocardial infarction; E11.9 Type 2 diabetes mellitus without complications; I82.409 Acute embolism and thrombosis of unspecified deep veins of unspecified lower extremity; R56.9 Unspecified convulsions; J45.909 Unspecified asthma, uncomplicated; Z88.1 Allergy status to other antibiotic agents
CPT/HCPCS: 36415; 80048; 80074; 83735; 85025; 94640; 96365; 96375; 99284; J2060; J2930; J3475

== ENCOUNTER 2017-07-18 09:10 | Inpatient (IN) | payer MEDICAID ==
[2017-07-18] MEDS ORDERED: ATIVAN ONE (09:18)
[2017-07-18] MEDS ORDERED: NACL 0.9% 500 ML 500 ML IV ONE (09:20)
[2017-07-18] MEDS ORDERED: XOPENEX IH ONE ×2 (09:22→09:28)
[2017-07-18] MEDS ORDERED: ATIVAN IV ONE (09:28)
[2017-07-18 09:58] LABS: Basophils % (Auto) 0.2 % (0.0-1.8); Hematocrit 42.4 % (30.3-42.9); Hemoglobin 13.8 gm/dl (10.1-14.3); Lymphocytes # (Auto) 1.7 K/mm3 (1.2-5.4); Lymphocytes % (Auto) 9.1 % (13.4-35.0); Mean Corpuscular HGB Conc 33 % (30-34); Mean Corpuscular Hemoglobin 27 pg (28-32); Mean Corpuscular Volume 83 fl (79-97); Monocytes # (Auto) 0.9 K/mm3 (0.0-0.8); Monocytes % (Auto) 4.9 % (0.0-7.3); Platelet Count 291 K/mm3 (140-440); Red Blood Count 5.13 M/mm3 (3.65-5.03); Red Cell Distribution Width 14.1 % (13.2-15.2)
--- NOTE | 2017-07-18 10:02 | XRay Report ---
Chest 2 views: Compared to 07/16/17. History: Possible sepsis. Normal cardiomediastinal silhouette. Trachea is midline. Evidence of emphysema. No consolidation, pneumothorax or pleural effusion. Impression: Emphysema. No acute lung changes.
[2017-07-18 10:11] LABS: INR 0.98 (0.87-1.13)
[2017-07-18 10:22] LABS: Alanine Aminotransferase 66 units/L (7-56); Albumin 3.7 g/dL (3.9-5); BUN/Creatinine Ratio 24; Blood Urea Nitrogen 12 mg/dL (7-17); Calcium 8.8 mg/dL (8.4-10.2); Hemolysis Index 1
[2017-07-18] MEDS ORDERED: NACL 0.9% 1000 ML 1,000 ML ONE (13:47)
[2017-07-18] MEDS ORDERED: NACL 0.9% 1000 ML 1,000 ML IV ONE ×2 (14:01→15:05)
[2017-07-18 14:19] LABS: Bilirubin,Urine NEG (Negative); Blood,Urine NEG (Negative); Color,Urine Yellow (Yellow); Mucus,Urine 1+ /HPF; Urobilinogen,Urine < 2.0 mg/dL (<2.0)
[2017-07-18] MEDS: ZOSYN/NS 3.375GM/50ML 3.375 GM/50 ML BAG IV SCH ×2 (14:46→21:37)
--- NOTE | 2017-07-18 14:54 | Emergency Department Report ---
ED Shortness of Breath HPI - General Chief Complaint: Dyspnea/Respdistress Stated Complaint: DIFFICULTY BREATHING Time Seen by Provider: 07/18/17 10:02 Source: patient, EMS Mode of arrival: Stretcher Limitations: No Limitations - History of Present Illness Initial Comments: when EMS got to the patient she was tachypneic and oxygen level was in 80's. pt. was just recently discharged 1 day ago for pneumonia MD Complaint: shortness of breath Onset/Timin (day) -: Gradual Severity: severe Consistency: constant Improves With: nothing Worsens With: nothing Known History Of: COPD Associated Symptoms: denies other symptoms - Related Data Home Medications Medication Instructions Recorded Confirmed Last Taken Acetaminophen [Tylenol Arthritis] 650 mg PO Q6H 02/25/17 07/18/17 07/17/17 Cyanocobalamin [Vitamin B-12] 1 ml IM QMONTH 02/25/17 07/18/17 07/17/17 Hyoscyamine Subl [Levsin Sl 0.125 0.125 mg SL Q4HR PRN 02/25/17 07/18/17 TAB] LORazepam [Ativan] 1 mg PO Q4H PRN 02/25/17 07/18/17 07/17/17 Morphine Concentrate [Roxanol Conc 0.25 ml PO Q2H PRN 02/25/17 07/18/17 07/17/17 20 MG/ML ORAL LIQ] Ondansetron [Zofran Odt] 4 mg PO Q4H PRN 02/25/17 07/18/17 07/17/17 Promethazine [Phenergan TAB] 25 mg PO Q4H PRN 02/25/17 07/18/17 07/17/17 Sennosides/Docusate Sodium [Senna 1 each PO HS PRN 02/25/17 07/18/17 07/17/17 S Tablet] Previous Rx's Medication Instructions Recorded Last Taken Type ALBUTEROL NEB's [Proventil 0.083% 1 neb IH Q6H #60 nebu 02/26/17 07/17/17 Rx NEBS] Acetaminophen [Non-Aspirin] 325 mg PO Q6H PRN #20 tablet 02/26/17 07/17/17 Rx Bisacodyl [Dulcolax suppos] 10 mg MS QDAY PRN #10 supp.rect 02/26/17 07/17/17 Rx Haloperidol [Haldol] 1 mg PO Q4H PRN #12 tablet 02/26/17 07/17/17 Rx Nebulizer [Aeroneb Go Nebulizer] 1 each MC BID #1 each 02/26/17 07/17/17 Rx diphenhydrAMINE [Benadryl CAP] 25 mg PO QHS PRN #30 capsule 02/26/17 07/17/17 Rx levETIRAcetam [Keppra TAB] 1,000 mg PO BID #60 tab 02/26/17 07/17/17 Rx oxyCODONE [Roxicodone TAB] 5 mg PO Q6HR PRN #12 tablet 02/26/17 07/17/17 Rx ALBUTEROL Inhaler [ProAir HFA 2 puff IH Q4H PRN #1 inhalation 03/01/17 07/17/17 Rx Inhaler] LORazepam [Ativan] 0.5 mg PO Q12H PRN #5 tab 03/01/17 07/17/17 Rx Levofloxacin [Levaquin TAB] 500 mg PO QDAY #7 tablet 07/17/17 07/17/17 Rx Prednisone [predniSONE 10 mg 10 mg PO .TAPER #1 tab.ds.pk 07/17/17 07/17/17 Rx (6-Day Pack, 21 Tabs)] guaiFENesin [Cough Syrup] 100 mg PO Q4H PRN #1 bottle 07/17/17 07/17/17 Rx Allergies Allergy/AdvReac Type Severity Reaction Status Date / Time metronidazole [From Flagyl] Allergy Rash Verified 02/24/17 20:12 ED Review of Systems ROS: Stated complaint: DIFFICULTY BREATHING Other details as noted in HPI Comment: All other systems reviewed and negative ED Past Medical Hx - Past Medical History Previous Medical History?: Yes Hx Hypertension: Yes Hx CVA: Yes Hx Heart Attack/AMI: Yes Hx Congestive Heart Failure: Yes Hx Diabetes: Yes Hx Deep Vein Thrombosis: Yes Hx Pulmonary Embolism: No Hx Renal Disease: No Hx Seizures: Yes Hx Kidney Stones: No Hx Asthma: Yes Hx COPD: Yes Hx Tuberculosis: No Hx Dementia: No Hx HIV: No - Surgical History Past Surgical History?: Yes Hx Coronary Stent: No Hx Open Heart Surgery: No Hx Pacemaker: No Hx Internal Defibrillator: No Hx Cholecystectomy: No Hx Appendectomy: No Hx Breast Surgery: Yes (Right Mastectomy 2011) Additional Surgical History: Hysterectomy, R mastectomy with implant, Lumbar spine surgery, chronic pain managment - Social History Smoking Status: Never Smoker - Medications Home Medications: Home Medications Medication Instructions Recorded Confirmed Last Taken Type Acetaminophen [Tylenol Arthritis] 650 mg PO Q6H 02/25/17 07/18/17 07/17/17 History Cyanocobalamin [Vitamin B-12] 1 ml IM QMONTH 02/25/17 07/18/17 07/17/17 History Hyoscyamine Subl [Levsin Sl 0.125 0.125 mg SL Q4HR PRN 02/25/17 07/18/17 History TAB] LORazepam [Ativan] 1 mg PO Q4H PRN 02/25/17 07/18/17 07/17/17 History Morphine Concentrate [Roxanol Conc 0.25 ml PO Q2H PRN 02/25/17 07/18/17 History 20 MG/ML ORAL LIQ] Ondansetron [Zofran Odt] 4 mg PO Q4H PRN 02/25/17 07/18/17 07/17/17 History Promethazine [Phenergan TAB] 25 mg PO Q4H PRN 02/25/17 07/18/17 07/17/17 History Sennosides/Docusate Sodium [Senna 1 each PO HS PRN 02/25/17 07/18/17 07/17/17 History S Tablet] ALBUTEROL NEB's [Proventil 0.083% 1 neb IH Q6H #60 nebu 02/26/17 07/18/17 Rx NEBS] Acetaminophen [Non-Aspirin] 325 mg PO Q6H PRN #20 tablet 02/26/17 07/18/1707/17 Rx Bisacodyl [Dulcolax suppos] 10 mg MS QDAY PRN #10 supp.rect 02/26/17 07/18/17 Rx Haloperidol [Haldol] 1 mg PO Q4H PRN #12 tablet 02/26/17 07/18/17 07/17/17 Rx Nebulizer [Aeroneb Go Nebulizer] 1 each MC BID #1 each 02/26/17 07/18/17 Rx diphenhydrAMINE [Benadryl CAP] 25 mg PO QHS PRN #30 capsule 02/26/17 07/18/17 Rx levETIRAcetam [Keppra TAB] 1,000 mg PO BID #60 tab 02/26/17 07/18/17 07/17/17 Rx oxyCODONE [Roxicodone TAB] 5 mg PO Q6HR PRN #12 tablet 02/26/17 07/18/17 Rx ALBUTEROL Inhaler [ProAir HFA 2 puff IH Q4H PRN #1 inhalation 03/01/17 07/18/17 07/17/17 Rx Inhaler] LORazepam [Ativan] 0.5 mg PO Q12H PRN #5 tab 03/01/17 07/18/17 07/17/17 Rx Levofloxacin [Levaquin TAB] 500 mg PO QDAY #7 tablet 07/17/17 07/18/17 07/17/17 Rx Prednisone [predniSONE 10 mg 10 mg PO .TAPER #1 tab.ds.pk 07/17/17 07/18/17 Rx (6-Day Pack, 21 Tabs)] guaiFENesin [Cough Syrup] 100 mg PO Q4H PRN #1 bottle 07/17/17 07/18/17 Rx ED Physical Exam - General Limitations: No Limitations General appearance: alert, in no apparent distress - Head Head exam: Present: atraumatic, normocephalic - Eye Eye exam: Present: normal appearance. Absent: PERRL - ENT ENT exam: Present: normal exam, mucous membranes moist - Neck Neck exam: Present: normal inspection. Absent: tenderness - Respiratory Respiratory exam: Present: normal lung sounds bilaterally, respiratory distress , accessory muscle use, decreased breath sounds - Cardiovascular Cardiovascular Exam: Present: regular rate, normal rhythm. Absent: systolic murmur, diastolic murmur, rubs, gallop - GI/Abdominal GI/Abdominal exam: Present: soft, normal bowel sounds. Absent: tenderness - Rectal Rectal exam: Present: deferred - Extremities Exam Extremities exam: Present: normal inspection - Back Exam Back exam: Present: normal inspection. Absent: full ROM - Neurological Exam Neurological exam: Present: alert, oriented X3 - Psychiatric Psychiatric exam: Present: normal affect, normal mood - Skin Skin exam: Present: warm, dry, intact, normal color. Absent: rash ED Course Vital Signs 07/18/17 07/18/17 07/18/17 09:14 10:00 10:35 Pulse Rate 155 H 116 H 93 H Pulse Rate [ 93 H Anterior Bilateral Throughout] Respiratory 35 H 21 14 Rate Respiratory 18 Rate [Anterior Bilateral Throughout] Blood Pressure 122/91 120/83 O2 Sat by Pulse 100 99 100 Oximetry 07/18/17 07/18/17 07/18/17 10:54 11:00 11:51 Pulse Rate 98 H 84 Pulse Rate [ 96 H Anterior Bilateral Throughout] Respiratory 24 14 Rate Respiratory 20 Rate [Anterior Bilateral Throughout] Blood Pressure 128/76 O2 Sat by Pulse 99 99 Oximetry ED Medical Decision Making - Lab Data Result diagrams: 07/18/17 09:28 07/18/17 09:28 - EKG Data -: EKG Interpreted by Me EKG shows normal: sinus rhythm (sinus tachycardia rate of 117), axis, intervals , QRS complexes, ST-T waves - Medical Decision Making i spoke to Dr Grace and he as accepted patient for admission Critical Care Time: Yes Critical care time in (mins) excluding proc time.: 50 Critical care attestation.: If time is entered above; I have spent that time in minutes in the direct care of this critically ill patient, excluding procedure time. Critical Care Time: 55min ED Disposition Clinical Impression: COPD exacerbation Respiratory failure Qualifiers: Chronicity: acute Respiratory failure complication: hypoxia Qualified Code(s): J96.01 - Acute respiratory failure with hypoxia Disposition: OP ADMIT IP TO THIS HOSP Is pt being admited?: Yes Does the pt Need Aspirin: No Condition: Stable Instructions: Chronic Bronchitis (ED) Referrals: PRIMARY CARE,MD [Primary Care Provider] - 3-5 Days Time of Disposition: 15:02 Print Language: URDU
--- NOTE | 2017-07-18 15:17 | History and Physical Report ---
History of Present Illness Date of examination: 07/18/17 Date of admission: 07/18/17 Chief complaint: CC SOB since AM History of present illness: History of Present Illness 62-year-old woman with history of COPD, hypertension, seizure, diabetes, asthma , breast cancer comes emergency room with complaints of shortness of breath and cough productive of yellow phlegm. The patient was discharged from hospital yesterday after being treated. No fever or chills. PAST MEDICAL HISTORY:COPD, hypertension, seizure, diabetes, asthma, breast cancer PAST SURGICAL HISTORY: Hysterectomy, right mastectomy with reconstruction FAILY HISTORY: Hypertension SOCIAL HISTORY: Denies alcohol, drugs, quit smoking Review Of Systems: Constitutional: no weight loss Ears, eyes, nose, mouth and throat: no nasal congestion, no nasal discharge, no sinus pressure, blurry vision, diplopia Neck: No neck pain or rigidity. Cardiovascular: no chest pain, orthopnea, palpitations Respiratory: + shortness of breath, cough Gastrointestinal: abdominal pain, hematochezia Genitourinary : no dysuria, frequency , hematuria Musculoskeletal: no muscle ache Integumentary: no rash, no pruritis Neurological: no parathesias, focal weakness Endocrine: no cold or heat intolerance, no polyuria or polydipsia Hematologic/Lymphatic: no easy bruising, no easy bleeding, no gland swelling Allergic/Immunologic: no urticaria, no angioedema. Medications and Allergies Allergies Allergy/AdvReac Type Severity Reaction Status Date / Time metronidazole [From Flagyl] Allergy Rash Verified 02/24/17 20:12 Home Medications Medication Instructions Recorded Confirmed Last Taken Type Acetaminophen [Tylenol Arthritis] 650 mg PO Q6H 02/25/17 07/18/17 07/17/17 History Cyanocobalamin [Vitamin B-12] 1 ml IM QMONTH 02/25/17 07/18/17 07/17/17 History Hyoscyamine Subl [Levsin Sl 0.125 0.125 mg SL Q4HR PRN 02/25/17 07/18/17 History TAB] LORazepam [Ativan] 1 mg PO Q4H PRN 02/25/17 07/18/17 07/17/17 History Morphine Concentrate [Roxanol Conc 0.25 ml PO Q2H PRN 02/25/17 07/18/17 History 20 MG/ML ORAL LIQ] Ondansetron [Zofran Odt] 4 mg PO Q4H PRN 02/25/17 07/18/17 07/17/17 History Promethazine [Phenergan TAB] 25 mg PO Q4H PRN 02/25/17 07/18/17 07/17/17 History Sennosides/Docusate Sodium [Senna 1 each PO HS PRN 02/25/17 07/18/17 07/17/17 History S Tablet] ALBUTEROL NEB's [Proventil 0.083% 1 neb IH Q6H #60 nebu 02/26/17 07/18/17 Rx NEBS] Acetaminophen [Non-Aspirin] 325 mg PO Q6H PRN #20 tablet 02/26/17 07/18/1707/17 Rx Bisacodyl [Dulcolax suppos] 10 mg [place] QDAY PRN #10 supp.rect 02/26/17 07/18/17 Rx Haloperidol [Haldol] 1 mg PO Q4H PRN #12 tablet 02/26/17 07/18/17 07/17/17 Rx Nebulizer [Aeroneb Go Nebulizer] 1 each MC BID #1 each 02/26/17 07/18/17 Rx diphenhydrAMINE [Benadryl CAP] 25 mg PO QHS PRN #30 capsule 02/26/17 07/18/17 Rx levETIRAcetam [Keppra TAB] 1,000 mg PO BID #60 tab 02/26/17 07/18/17 07/17/17 Rx oxyCODONE [Roxicodone TAB] 5 mg PO Q6HR PRN #12 tablet 02/26/17 07/18/17 Rx ALBUTEROL Inhaler [ProAir HFA 2 puff IH Q4H PRN #1 inhalation 03/01/17 07/18/17 07/17/17 Rx Inhaler] LORazepam [Ativan] 0.5 mg PO Q12H PRN #5 tab 03/01/17 07/18/17 07/17/17 Rx Levofloxacin [Levaquin TAB] 500 mg PO QDAY #7 tablet 07/17/17 07/18/1707/17/18 Rx Prednisone [predniSONE 10 mg 10 mg PO .TAPER #1 tab.ds.pk 07/17/17 07/18/17 Rx (6-Day Pack, 21 Tabs)] guaiFENesin [Cough Syrup] 100 mg PO Q4H PRN #1 bottle 07/17/17 07/18/17 Rx Active Meds: Active Medications Enoxaparin Sodium (Lovenox) 40 mg SUB-Q QDAY ELROY Piperacillin Sod/Tazobactam Sod (Zosyn/Ns 3.375gm/50ml) 3.375 gm in 50 mls @ 100 mls/hr IV Q6H ELROY Last Admin: 07/18/17 14:46 Dose: 100 mls/hr Sodium Chloride (Nacl 0.9% 1000 Ml) 1,000 mls @ 999 mls/hr IV BOLUS ONE Stop: 07/18/17 16:05 Exam - Physical Exam Narrative exam: Patient in respiratory distress and on BiPAP - Constitutional Vitals: Temp Pulse Resp BP Pulse Ox 84 14 128/76 99 07/18/17 11:51 07/18/17 11:51 07/18/17 11:00 07/18/17 11:51 General appearance: Present: well-nourished - EENT Eyes: Present: PERRL ENT: hearing intact, clear oral mucosa - Neck Neck: Present: supple, normal ROM - Respiratory Respiratory effort: normal Respiratory: bilateral: CTA, rhonchi, wheezing - Cardiovascular Heart rate: 80 Rhythm: regular Heart Sounds: Present: S1 & S2. Absent: rub, click - Extremities Extremities: no ischemia, pulses intact, pulses symmetrical, No edema Peripheral Pulses: within normal limits - Abdominal General gastrointestinal: Present: soft, non-tender, non-distended, normal bowel sounds Female genitourinary: Present: normal - Rectal Rectal Exam: deferred - Integumentary Integumentary: Present: clear, warm, dry - Musculoskeletal Musculoskeletal: gait normal, strength equal bilaterally - Psychiatric Psychiatric: appropriate mood/affect, intact judgment & insight - Neurologic Neurologic: CNII-XII intact, moves all extremities - Allied Health Allied health notes reviewed: nursing, case management Results - Labs CBC & Chem 7: 07/18/17 09:28 07/18/17 09:28 Labs: Laboratory Last Values WBC 19.1 K/mm3 (4.5-11.0) H 07/18/17 09: RBC 5.13 M/mm3 (3.65-5.03) H 07/18/17 09:28 Hgb 13.8 gm/dl (10.1-14.3) 07/18/17 09: Hct 42.4 % (30.3-42.9) 07/18/17: MCV 83 fl (79-97) 07/18/17: MCH 27 pg (28-32) L 07/18/17: MCHC 33 % (30-34) 07/18/17: RDW 14.1 % (13.2-15.2) 07/18/17: Plt Count 291 K/mm3 (140-440) 07/18/17: Lymph % (Auto) 9.1 % (13.4-35.0) L 07/18/17: [place] % (Auto) 4.9 % (0.0-7.3) 07/18/17 09: Eos % (Auto) 0.0 % (0.0-4.3) 07/18/17 09: Baso % (Auto) 0.2 % (0.0-1.8) 07/18/17: Lymph # 1.7 K/mm3 (1.2-5.4) 07/18/17 09: [place] # 0.9 K/mm3 (0.0-0.8) H 07/18/17: Eos # 0.0 K/mm3 (0.0-0.4) 07/18/17 09: Baso # 0.0 K/mm3 (0.0-0.1) 07/18/17 09: Seg Neutrophils % 85.8 % (40.0-70.0) H 07/18/17 09:28 Seg Neutrophils # 16.4 K/mm3 (1.8-7.7) H 07/18/17 09: PT 13.5 Sec. (12.2-14.9) 07/18/17 09: INR 0.98 (0.87-1.13) 07/18/17 09:28 POC ABG pH 7.389 (7.35-7.45) 07/18/17 10:51 POC ABG pCO2 62.0 (35-45) H 07/18/17 10:51 POC ABG pO2 160 (80-105) H 07/18/17 10:51 POC ABG HCO3 37.4 07/18/17 10:51 POC ABG Total CO2 39 07/18/17 10:51 POC ABG O2 Sat 99 07/18/17 10:51 POC ABG Base Excess 12 07/18/17 10:51 VBG pH 7.327 (7.320-7.420) 07/18/17 09:28 FiO2 40 % 07/18/17 10:51 Sodium 139 mmol/L (137-145) 07/18/17 09:28 Potassium 3.9 mmol/L (3.6-5.0) 07/18/17 09:28 Chloride 94.7 mmol/L (98-107) L 07/18/17 09:28 Carbon Dioxide 30 mmol/L (22-30) 07/18/17 09:28 Anion Gap 18 mmol/L 07/18/17 09:28 BUN 12 mg/dL (7-17) 07/18/17 09:28 Creatinine 0.5 mg/dL (0.7-1.2) L 07/18/17 09:28 Estimated GFR > 60 ml/min 07/18/17 09:28 BUN/Creatinine Ratio 24 % 07/18/17 09:28 Glucose 154 mg/dL (65-100) H 07/18/17 09:28 Lactic Acid 3.10 mmol/L (0.7-2.0) H* 07/18/17 14:04 Calcium 8.8 mg/dL (8.4-10.2) 07/18/17 09:28 Magnesium 2.30 mg/dL (1.7-2.3) 07/18/17 09:28 Total Bilirubin 0.30 mg/dL (0.1-1.2) 07/18/17 09:28 AST 71 units/L (5-40) H 07/18/17 09:28 ALT 66 units/L (7-56) H 07/18/17 09:28 Alkaline Phosphatase 170 units/L (35-129) H 07/18/17 09:28 Total Protein 7.0 g/dL (6.3-8.2) 07/18/17 09:28 Albumin 3.7 g/dL (3.9-5) L 07/18/17 09:28 Albumin/Globulin Ratio 1.1 % 07/18/17 09:28 Urine Color Yellow (Yellow) 07/18/17 13:56 Urine Turbidity Clear (Clear) 07/18/17 13:56 Urine pH 6.0 (5.0-7.0) 07/18/17 13:56 Ur Specific [place] 1.016 (1.003-1.030) 07/18/17 13:56 Urine Protein 30 mg/dl mg/dL (Negative) 07/18/17 13:56 Urine Glucose (UA) Neg mg/dL (Negative) 07/18/17 13:56 Urine Ketones Neg mg/dL (Negative) 07/18/17 13:56 Urine Blood Neg (Negative) 07/18/17 13:56 Urine Nitrite Neg (Negative) 07/18/17 13:56 Urine Bilirubin Neg (Negative) 07/18/17 13:56 Urine Urobilinogen < 2.0 mg/dL (<2.0) 07/18/17 13:56 Ur Leukocyte Esterase Neg (Negative) 07/18/17 13:56 Urine WBC (Auto) 2.0 /HPF (0.0-6.0) 07/18/17 13:56 Urine RBC (Auto) 1.0 /HPF (0.0-6.0) 07/18/17 13:56 Urine Mucus 1+ /HPF 07/18/17 13:56 Short CBC 07/18/17 Range/Units 09:28 WBC 19.1 H (4.5-11.0) K/mm3 Hgb 13.8 (10.1-14.3) gm/dl Hct 42.4 (30.3-42.9) % Plt Count 291 (140-440) K/mm3 BMP 07/18/17 09:28 Sodium 139 Potassium 3.9 Chloride 94.7 L Carbon Dioxide 30 BUN 12 Creatinine 0.5 L Glucose 154 H Calcium 8.8 Liver Function 07/18/17 Range/Units 09:28 Total Bilirubin 0.30 (0.1-1.2) mg/dL AST 71 H (5-40) units/L ALT 66 H (7-56) units/L Alkaline Phosphatase 170 H (35-129) units/L Albumin 3.7 L (3.9-5) g/dL Urine // Range/Units 13:56 Urine Color Yellow (Yellow) Urine pH 6.0 (5.0-7.0) Ur Specific [place] 1.016 (1.003-1.030) Urine Protein 30 mg/dl (Negative) mg/dL Urine Glucose (UA) Neg (Negative) mg/dL - Imaging and Cardiology EKG: report reviewed (sinus tachycardia heart rate of 117 LVH by voltage criteria) Chest x-ray: report reviewed Imaging and Cardiology: Chest x-ray COPD No acute pulmonary process Assessment and Plan Advance Directives: Yes (full code) VTE prophylaxis?: Chemical Plan of care discussed with patient/family: Yes - Patient Problems (1) Acute respiratory failure with hypoxia Current Visit: No Status: Acute Plan to address problem: Patient in acute respiratory failure. Hypoxic at the time of admission. Oxygen saturation is a about 80. Patient has to be put on BiPAP machine. Patient initiated on duonebs every 3 when necessary and every 6 hours around-the -clock. Also IV Solu-Medrol. Also IV Zosyn because of the recurrent admissions. Intubate if necessary. Patient was in hospice in the past but not now (2) COPD exacerbation Current Visit: No Status: Acute Plan to address problem: IV Zosyn, Solu-Medrol and duo nebs as mentioned in the acute respiratory failure (3) Seizure disorder Current Visit: Yes Status: Chronic Plan to address problem: Continue Keppra (4) Generalized anxiety disorder Current Visit: Yes Status: Chronic Plan to address problem: Continue lorazepam 2 times a day to 3 times a day when necessary (5) DVT prophylaxis Current Visit: Yes Status: Acute Plan to address problem: Patient initiated on heparin 5000 every 8.
[2017-07-18] MEDS ORDERED: DUONEB *Not for PRN Use IH (15:32)
[2017-07-18] MEDS ORDERED: ZOFRAN ODT PO PRN (15:40)
[2017-07-18] MEDS ORDERED: LEVSIN SL SL PRN (15:40)
[2017-07-18] MEDS ORDERED: HALDOL PO PRN (15:40)
[2017-07-18] MEDS ORDERED: PROAIR IH PRN (15:40)
[2017-07-18] MEDS ORDERED: DULCOLAX PR PRN (15:40)
[2017-07-18] MEDS ORDERED: NON-FORMULARY (Levetiracetam [Keppra Tab] 1,000 MG) PO SCH (15:45)
[2017-07-18] MEDS ORDERED: NON-FORMULARY (Acetaminophen [Tylenol Arthritis] 650 MG) PO SCH (15:45)
[2017-07-18] MEDS ORDERED: ZOSYN/NS 4.5GM/100ML 4.5 GM/100 ML VIAL IV SCH (16:00)
[2017-07-18] MEDS ORDERED: ATIVAN PO PRN (16:13)
[2017-07-18] MEDS: TYLENOL PO SCH (19:56)
[2017-07-18] MEDS: LOVENOX SUB-Q SCH (21:39)
[2017-07-18] MEDS: KEPPRA PO SCH (21:39)
[2017-07-18] MEDS ORDERED: BENADRYL PO PRN (22:00)
[2017-07-18] MEDS ORDERED: SENOKOT S PO PRN (22:00)
[2017-07-18] MEDS: PERCOCET 5/325 PO PRN (22:37)
[2017-07-18] MEDS: DUONEB *Not for PRN Use IH SCH (22:53)
[2017-07-19] MEDS: TYLENOL PO SCH ×4 (00:50→20:36)
[2017-07-19] MEDS: ZOSYN/NS 3.375GM/50ML 3.375 GM/50 ML BAG IV SCH ×4 (03:08→21:53)
[2017-07-19] MEDS: PERCOCET 5/325 PO PRN ×2 (04:24→18:16)
[2017-07-19] MEDS: DUONEB *Not for PRN Use IH SCH ×5 (07:54→20:19)
[2017-07-19] MEDS: KEPPRA PO SCH ×2 (10:45→21:38)
[2017-07-19] MEDS: LOVENOX SUB-Q SCH (10:50)
--- NOTE | 2017-07-19 10:51 | Progress Note ---
Assessment and Plan Assessment and plan: --Acute on chronic respiratory failure; on BiPAP Continue nebulizers, IV steroids and pulmonary consultation Discussed with Dr. Bradford, stat ABG,Possible transfer to ICU for close observation If no improvement intubate --Acute exacerbation of COPD; Nebulizers, oxygen, BiPAP as needed, intubate if no improvement, pulmonary --Acute pneumonitis; IV antibiotics, supportive care --Lactic acidosis; closely monitor --History of seizure disorder; seizure precautions Continue antiepileptic medications, no new episodes of seizure --DVT prophylaxis; Lovenox Closely monitor the patient and adjust management as needed If no improvement with the above treatment Patient will be transferred to ICU for close observation Critical care time 32 minutes The high probability of a clinically significant, sudden or life threatening deterioration of the [respiratory, infectious disease and neurology] system(s) required my full and direct attention, intervention and personal management. The aggregate critical care time was [32] minutes. This time is in addition to time spent performing reported procedures but includes the following: [x] Data Review and interpretation [x] Patient assessment and monitoring of vital signs [x] Documentation [x] Medication orders and management History Interval history: Patient seen and examined in her room this morning medical records reviewed Patient is severely hypoxic, on BiPAP, tachypneic and restless Using accessory muscles In acute distress Vital signs reviewed Hospitalist Physical - Constitutional Vitals: Temp Pulse Resp BP Pulse Ox 98.2 F 64 20 150/78 100 07/19/17 08:52 07/19/17 08:52 07/19/17 08:52 07/19/17 08:52 07/19/17 08:52 General appearance: Present: severe distress, well-nourished, other (tachypneic ) - EENT Eyes: Present: PERRL, EOM intact - Neck Neck: Present: supple - Respiratory Respiratory effort: labored Respiratory: bilateral: diminished, wheezing, negative: rales, rhonchi - Cardiovascular Rhythm: regular Heart Sounds: Present: S1 & S2 - Extremities Extremities: no ischemia, No edema - Abdominal General gastrointestinal: soft, non-tender, non-distended, normal bowel sounds - Integumentary Integumentary: Present: clear, warm - Psychiatric Psychiatric: appropriate mood/affect, agitated - Neurologic Neurologic: moves all extremities Results - Labs CBC & Chem 7: 07/18/17 09:28 03/17/18 09:28 Labs: Laboratory Last Values WBC 19.1 K/mm3 (4.5-11.0) H 07/18/17 09:28 RBC 5.13 M/mm3 (3.65-5.03) H 07/18/17 09:28 Hgb 13.8 gm/dl (10.1-14.3) 07/18/17 09:28 Hct 42.4 % (30.3-42.9) 07/18/17 09:28 MCV 83 fl (79-97) 07/18/17 09:28 MCH 27 pg (28-32) L 07/18/17 09: MCHC 33 % (30-34) 07/18/17: RDW 14.1 % (13.2-15.2) 07/18/17 09:28 Plt Count 291 K/mm3 (140-440) 07/18/17 09: Lymph % (Auto) 9.1 % (13.4-35.0) L 07/18/17 09:28 [place] % (Auto) 4.9 % (0.0-7.3) 07/18/17 09:28 Eos % (Auto) 0.0 % (0.0-4.3) 07/18/17 09:28 Baso % (Auto) 0.2 % (0.0-1.8) 07/18/17 09:28 Lymph # 1.7 K/mm3 (1.2-5.4) 07/18/17 09:28 [place] # 0.9 K/mm3 (0.0-0.8) H 07/18/17 09:28 Eos # 0.0 K/mm3 (0.0-0.4) 07/18/17 09:28 Baso # 0.0 K/mm3 (0.0-0.1) 07/18/17 09:28 Seg Neutrophils % 85.8 % (40.0-70.0) H 07/18/17 09:28 Seg Neutrophils # 16.4 K/mm3 (1.8-7.7) H 07/18/17 09:28 PT 13.5 Sec. (12.2-14.9) 07/18/17 09:28 INR 0.98 (0.87-1.13) 07/18/17 09:28 POC ABG pH 7.389 (7.35-7.45) 07/18/17 10:51 POC ABG pCO2 62.0 (35-45) H 07/18/17 10:51 POC ABG pO2 160 (80-105) H 07/18/17 10:51 POC ABG HCO3 37.4 07/18/17 10:51 POC ABG Total CO2 39 07/18/17 10:51 POC ABG O2 Sat 99 07/18/17 10:51 POC ABG Base Excess 12 07/18/17 10:51 VBG pH 7.327 (7.320-7.420) 07/18/17 09:28 FiO2 40 % 07/18/17 10:51 Sodium 139 mmol/L (137-145) 07/18/17 09:28 Potassium 3.9 mmol/L (3.6-5.0) 07/18/17 09:28 Chloride 94.7 mmol/L (98-107) L 07/18/17 09:28 Carbon Dioxide 30 mmol/L (22-30) 07/18/17 09:28 Anion Gap 18 mmol/L 07/18/17 09:28 BUN 12 mg/dL (7-17) 07/18/17 09:28 Creatinine 0.5 mg/dL (0.7-1.2) L 07/18/17 09:28 Estimated GFR > 60 ml/min 07/18/17 09:28 BUN/Creatinine Ratio 24 % 07/18/17 09:28 Glucose 154 mg/dL (65-100) H 07/18/17 09:28 POC Glucose 161 (70-105) H 07/18/17 20:11 Lactic Acid 2.40 mmol/L (0.7-2.0) H* 07/19/17 06:31 Calcium 8.8 mg/dL (8.4-10.2) 07/18/17 09:28 Magnesium 2.30 mg/dL (1.7-2.3) 07/18/17 09:28 Total Bilirubin 0.30 mg/dL (0.1-1.2) 07/18/17 09:28 AST 71 units/L (5-40) H 07/18/17 09:28 ALT 66 units/L (7-56) H 03/17/18 09:28 Alkaline Phosphatase 170 units/L (35-129) H 07/18/17 09:28 Total Protein 7.0 g/dL (6.3-8.2) 07/18/17 09:28 Albumin 3.7 g/dL (3.9-5) L 07/18/17 09:28 Albumin/Globulin Ratio 1.1 % 07/18/17 09:28 Urine Color Yellow (Yellow) 07/18/17 13:56 Urine Turbidity Clear (Clear) 07/18/17 13:56 Urine pH 6.0 (5.0-7.0) 07/18/17 13:56 Ur Specific [place] 1.016 (1.003-1.030) 07/18/17 13:56 Urine Protein 30 mg/dl mg/dL (Negative) 07/18/17 13:56 Urine Glucose (UA) Neg mg/dL (Negative) 07/18/17 13:56 Urine Ketones Neg mg/dL (Negative) 07/18/17 13:56 Urine Blood Neg (Negative) 07/18/17 13:56 Urine Nitrite Neg (Negative) 07/18/17 13:56 Urine Bilirubin Neg (Negative) 07/18/17 13:56 Urine Urobilinogen < 2.0 mg/dL (<2.0) 07/18/17 13:56 Ur Leukocyte Esterase Neg (Negative) 07/18/17 13:56 Urine WBC (Auto) 2.0 /HPF (0.0-6.0) 07/18/17 13:56 Urine RBC (Auto) 1.0 /HPF (0.0-6.0) 07/18/17 13:56 Urine Mucus 1+ /HPF 07/18/17 13:56
[2017-07-19] MEDS: HumaLOG SUB-Q SCH ×3 (12:00→22:00)
[2017-07-19] MEDS: ATIVAN IV PRN ×2 (12:16→21:38)
--- NOTE | 2017-07-19 13:53 | Consultation ---
History of Present Illness Consult date: 07/19/17 Requesting physician: AR SAENZ Reason for consult: COPD, other (Acute On Chronic Hypercapnic Hypoxemic Respiratory Failure) History of present illness: PULMONARY/CCM CONSULT NOTE (Full dictation # [id number]) Please see dictated notes for full details Medications and Allergies Allergies Allergy/AdvReac Type Severity Reaction Status Date / Time metronidazole [From Flagyl] Allergy Rash Verified 02/24/17 20:12 Home Medications Medication Instructions Recorded Confirmed Last Taken Type Acetaminophen [Tylenol Arthritis] 650 mg PO Q6H 02/25/17 07/18/17 07/17/17 History Cyanocobalamin [Vitamin B-12] 1 ml IM QMONTH 02/25/17 07/18/17 07/17/17 History Hyoscyamine Subl [Levsin Sl 0.125 0.125 mg SL Q4HR PRN 02/25/17 07/18/17 History TAB] LORazepam [Ativan] 1 mg PO Q4H PRN 02/25/17 07/18/17 07/17/17 History Morphine Concentrate [Roxanol Conc 0.25 ml PO Q2H PRN 02/25/17 07/18/17 History 20 MG/ML ORAL LIQ] Ondansetron [Zofran Odt] 4 mg PO Q4H PRN 02/25/17 07/18/17 07/17/17 History Promethazine [Phenergan TAB] 25 mg PO Q4H PRN 02/25/17 07/18/17 07/17/17 History Sennosides/Docusate Sodium [Senna 1 each PO HS PRN 02/25/17 07/18/17 07/17/17 History S Tablet] ALBUTEROL NEB's [Proventil 0.083% 1 neb IH Q6H #60 nebu 02/26/17 07/18/17 Rx NEBS] Acetaminophen [Non-Aspirin] 325 mg PO Q6H PRN #20 tablet 02/26/17 07/18/1707/17 Rx Bisacodyl [Dulcolax suppos] 10 mg [place] QDAY PRN #10 supp.rect 02/26/17 07/18/17 Rx Haloperidol [Haldol] 1 mg PO Q4H PRN #12 tablet 02/26/17 07/18/17 07/17/17 Rx Nebulizer [Aeroneb Go Nebulizer] 1 each MC BID #1 each 02/26/17 07/18/17 Rx diphenhydrAMINE [Benadryl CAP] 25 mg PO QHS PRN #30 capsule 02/26/17 07/18/17 Rx levETIRAcetam [Keppra TAB] 1,000 mg PO BID #60 tab 02/26/17 07/18/17 07/17/17 Rx oxyCODONE [Roxicodone TAB] 5 mg PO Q6HR PRN #12 tablet 02/26/17 07/18/17 Rx ALBUTEROL Inhaler [ProAir HFA 2 puff IH Q4H PRN #1 inhalation 03/01/17 07/18/17 07/17/17 Rx Inhaler] LORazepam [Ativan] 0.5 mg PO Q12H PRN #5 tab 03/01/17 07/18/17 07/17/17 Rx Levofloxacin [Levaquin TAB] 500 mg PO QDAY #7 tablet 07/17/17 07/18/17 07/17/17 Rx Prednisone [predniSONE 10 mg 10 mg PO .TAPER #1 tab.ds.pk 07/17/17 07/18/17 Rx (6-Day Pack, 21 Tabs)] guaiFENesin [Cough Syrup] 100 mg PO Q4H PRN #1 bottle 07/17/17 07/18/17 Rx Active Meds: Active Medications Acetaminophen (Tylenol) 650 mg PO Q6H [facility] Last Admin: 07/19/17 06:01 Dose: Not Given Albuterol (Proventil) 2.5 mg IH Q4H PRN PRN Reason: Shortness Of Breath Albuterol/Ipratropium (Duoneb *Not For Prn Use*) 1 ampul IH QIDRT [facility] Last Admin: 07/19/17 13:04 Dose: 1 ampul Alprazolam (Xanax) 0.25 mg PO Q8H PRN PRN Reason: Anxiety Bisacodyl (Dulcolax) 10 mg NV QDAY PRN PRN Reason: Constipation Diphenhydramine HCl (Benadryl) 25 mg PO QHS PRN PRN Reason: Sleep Enoxaparin Sodium (Lovenox) 40 mg SUB-Q QDAY [facility] Last Admin: 07/19/17 10:50 Dose: 40 mg Haloperidol (Haldol) 1 mg PO Q4H PRN PRN Reason: Psychosis Hyoscyamine (Levsin Sl) 0.125 mg SL Q4H PRN PRN Reason: Spasms Piperacillin Sod/Tazobactam Sod (Zosyn/Ns 3.375gm/50ml) 3.375 gm in 50 mls @ 100 mls/hr IV Q6H [facility] Last Admin: 07/19/17 03:08 Dose: 100 mls/hr Insulin Human Lispro (Humalog) 0 unit SUB-Q ACHS [facility]; Protocol Levetiracetam (Keppra) 1,000 mg PO BID [facility] Last Admin: 07/18/17 21:39 Dose: 1,000 mg Lorazepam (Ativan) 1 mg IV Q6H PRN PRN Reason: Agitation Last Admin: 07/19/17 12:16 Dose: 1 mg Methylprednisolone Sodium Succinate (Solu-Medrol) 80 mg IV Q8HR ELROY Ondansetron HCl (Zofran Odt) 4 mg PO Q4H PRN PRN Reason: Nausea And Vomiting Oxycodone/Acetaminophen (Percocet 5/325) 1 tab PO Q6H PRN PRN Reason: Pain, Moderate (4-6) Last Admin: 07/19/17 04:24 Dose: 1 tab Senna/Docusate Sodium (Senokot S) 1 tab PO HS PRN PRN Reason: Constipation Physical Examination Vital signs: Vital Signs Pulse Resp BP Pulse Ox 155 H 35 H 122/91 100 07/18/17 09:14 07/18/17 09:14 07/18/17 09:14 07/18/17 09:14 Results - Laboratory Findings CBC and BMP: 07/18/17 09:28 07/18/17 09:28 ABG POC ABG pH 7.397 (7.35-7.45) 07/19/17 12:40 POC ABG pCO2 53.5 (35-45) H 07/19/17 12:40 POC ABG pO2 79 (80-105) L 07/19/17 12:40 POC ABG HCO3 32.9 07/19/17 12:40 POC ABG Total CO2 34 07/19/17 12:40 POC ABG O2 Sat 95 07/19/17 12:40 PT/INR, D-dimer PT 13.5 Sec. (12.2-14.9) 07/18/17 09:28 INR 0.98 (0.87-1.13) 07/18/17 09:28 Abnormal lab findings: Abnormal Labs 07/18/17 07/18/17 07/18/17 09:28 09:28 10:51 WBC 19.1 H RBC 5.13 H MCH 27 L Lymph % (Auto) 9.1 L [place] # 0.9 H Seg Neutrophils % 85.8 H Seg Neutrophils # 16.4 H POC ABG pCO2 62.0 H POC ABG pO2 160 H Chloride 94.7 L Creatinine 0.5 L Glucose 154 H POC Glucose Lactic Acid AST 71 H ALT 66 H Alkaline Phosphatase 170 H Albumin 3.7 L 07/18/17 07/18/17 07/18/17 12:05 13:27 14:04 WBC RBC MCH Lymph % (Auto) [place] # Seg Neutrophils % Seg Neutrophils # POC ABG pCO2 POC ABG pO2 Chloride Creatinine Glucose POC Glucose Lactic Acid 2.60 H* 3.80 H* 3.10 H* AST ALT Alkaline Phosphatase Albumin 07/18/17 07/18/17 07/18/17 17:39 18:23 20:10 WBC RBC MCH Lymph % (Auto) [place] # Seg Neutrophils % Seg Neutrophils # POC ABG pCO2 POC ABG pO2 Chloride Creatinine Glucose POC Glucose Lactic Acid 2.20 H* 3.10 H* 4.10 H* AST ALT Alkaline Phosphatase Albumin 07/18/17 07/18/17 07/19/17 20:11 22:36 06:31 WBC RBC MCH Lymph % (Auto) [place] # Seg Neutrophils % Seg Neutrophils # POC ABG pCO2 POC ABG pO2 Chloride Creatinine Glucose POC Glucose 161 H Lactic Acid 2.30 H* 2.40 H* AST ALT Alkaline Phosphatase Albumin 07/19/17 07/19/17 07/19/17 10:29 12:40 12:55 WBC RBC MCH Lymph % (Auto) [place] # Seg Neutrophils % Seg Neutrophils # POC ABG pCO2 53.5 H POC ABG pO2 79 L Chloride Creatinine Glucose POC Glucose Lactic Acid 2.10 H* 2.40 H* AST ALT Alkaline Phosphatase Albumin
[2017-07-19] MEDS: ZITHROMAX 500 MG in NACL 0.9% 250ML 250 ML IV SCH (18:00)
[2017-07-19 20:29] LABS: C-Reactive Protein 0.5 mg/dL (0.00-1.30)
[2017-07-20] MEDS: PERCOCET 5/325 PO PRN ×2 (01:03→21:50)
[2017-07-20] MEDS: XANAX PO PRN ×3 (01:03→19:49)
[2017-07-20] MEDS: TYLENOL PO SCH ×4 (01:14→20:34)
--- NOTE | 2017-07-20 01:56 | Consultation ---
PULMONARY CONSULTATION CONSULTING PHYSICIAN: Dr. Flores. REASON FOR CONSULTATION: Acute on chronic hypoxemic hypercapnic respiratory failure. CHIEF COMPLAINT AND HISTORY OF PRESENT ILLNESS: The patient is a 62-year-old female known to me from past admissions, with past medical history significant amongst other things for home oxygen dependent COPD, but also history of seizures, came into the Emergency Room complaining of shortness of breath, new onset cough productive of yellowish phlegm. She reportedly was discharged from another hospital just the day before she was admitted. It actually seems like she was discharged from this hospital after spending about 48 hours in the hospital. It seems like she went home, did not feel well, came back to the ER. She was evaluated in the Emergency Room, apparently admitted to the medical floor with a diagnosis of COPD exacerbation. Evaluation this morning by the attending physician showed increased work of breathing, altered mental status. She was placed on bilevel positive air pressure ventilation therapy and the consult was placed. When I stopped by to see her, she remained on BiPAP. Sequential ABGs had shown compensated hypercapnic respiratory failure. She was somnolent, arousable. Denied acute chest pain. Did say she was aching all over. She admitted to some element of noncompliance run out of her medications at home. She did not answer my questions about sick contacts. Now with regards to tobacco use/abuse history, she had denied current tobacco use, but I believe she has a 10+-pack-year tobacco smoking history. That really is as much of the history as I have or I can obtain secondary to her lethargy. PAST MEDICAL HISTORY: Home oxygen-dependent COPD, hypertension, seizure disorder, diabetes, asthma, history of breast cancer. PAST SURGICAL HISTORY: Status post right mastectomy with reconstruction. She has had a hysterectomy in the past. MEDICATIONS: She was on at the time I stopped by to see her, according to the medication administration record included the following: Tylenol 650 mg p.o. q. 6 hours, it is scheduled, DuoNeb treatments nebulized q.i.d., Xanax 0.25 mg p.o. q. 8 hours p.r.n. anxiety, Benadryl 25 mg p.o. at bedtime p.r.n. insomnia, Lovenox 40 mg subcutaneous daily, Haldol 1 mg p.o. q. 4 hours p.r.n. psychosis. She is on Levsin 0.125 mg sublingual q. 4 hours p.r.n. spasms, insulin via sliding scale, Keppra 1 gram p.o. b.i.d., Ativan 1 mg IV q. 6 hours p.r.n. agitation, Solu-Medrol 80 mg IV q. 8 hours scheduled, Zofran 4 mg p.o. q. 4 hours p.r.n. nausea and vomiting, and Zosyn 3.375 g IV q. 6 hours. ALLERGIES: FLAGYL. Nature of this allergy is unknown. DIET: Well-built lady, acute weight loss or gain history is unknown. FAMILY AND SOCIAL HISTORY: Lives in the community. She has a 10+ pack year tobacco smoking history, has quit now, according to her. Denied alcohol, illicit drug use or abuse. There is a family history of positive for hypertension. REVIEW OF SYSTEMS: Difficult to obtain secondary to her mental status at this point. She did complain of generalized aches. Since she has been here, no gross hematochezia or melena, no gross hematuria, no hematemesis, no hemoptysis, no witnessed seizures. Complete review of systems otherwise is unobtainable or as in the body of history above. PHYSICAL EXAMINATION: VITAL SIGNS: At presentation in the Emergency Room revealed vital signs shows that she has been afebrile, temperature 98.2, pulse was 74, respiratory rate 20, blood pressure 125/77, oxygen sats 93%, inspired oxygen concentration was not recorded. At the time I saw her, she was on BiPAP 20/8 with a backup rate, I believe, of 12 and 25% FiO2. GENERAL: Well-built female, looks her stated age, normocephalic, atraumatic, on the BiPAP machine, in [id number] respiratory distress. HEAD, EYES, EARS, NOSE AND THROAT: She is anicteric. No conjunctival erythema. Grossly, no palpable lymph nodes in the supraclavicular or submandibular lymph node chains. No gross thyromegaly. No gross jugular venous distention. She has the BiPAP machine on. I am unable to examine her oropharynx. LUNGS: Auscultation of both lung cortez significant mostly for diminished bilateral breath sounds, prolonged expiratory phase. No active wheezing. HEART: Sounds 1 and 2 are heard at the time of my evaluation. Regular rate and rhythm. No rubs or murmurs. ABDOMEN: Full, bowel sounds are positive, nontender. No palpable hepatosplenomegaly. EXTREMITIES: Without overt digital clubbing, cyanosis, or pedal edema. Dorsalis pedis pulses are palpable bilaterally. NEUROLOGIC: Pupils are equal, round, about 4 mm, reactive to light. Extraocular muscle movements are intact. She was somnolent. She moves all 4 extremities spontaneously. The skin is of normal turgor. No cellulitis, no rash. LABORATORY DATA: From my review are as follows: Admission white cell count 19,100, hemoglobin 13.8, hematocrit 42.4, platelet count 291. No band forms reported. INR 0.98. Arterial blood gas at presentation showed a pH of 7.39, pCO2 of 62, pO2 of 160 that was on 40% FiO2. Serum sodium was 139, potassium 3.9, chloride 95, bicarb 30, BUN 12, creatinine 0.5, glucose 154. Lactic acid level peaked at 3.10. Calcium 8.8. AST up at 71, ALT up at 67. Albumin 3.7. Urinalysis is unremarkable, negative for nitrites and leukocyte esterase. Most recent ABG showed a pH of 7.40, pCO2 of 54, pO2 of 79 on the above-mentioned settings. The serum lactate is now down to 1.9. I have reviewed the records and I do not see a 2D echocardiogram on file. Chest x-ray has been reviewed. I am able to compare it with an x-ray from 07/16/2017. Essentially hyperinflation, tenting of the hemidiaphragm bilaterally, no focal infiltrates, reconstructed breast producing some opacification of the lung bases, but no actual infiltrate that I can see. I have searched through the records. I do not have a 2D echocardiogram on file. ASSESSMENT AND PLAN: 1. Acute on chronic hypoxemic hypercapnic respiratory failure. 2. Acute encephalopathy. 3. Leukocytosis. 4. Sepsis syndrome with elevated lactic acidosis. 5. Hyperglycemia. 6. Elevated serum transaminases. 7. History of breast cancer. 8. Acute chronic obstructive pulmonary disease exacerbation. PLAN: Considering her overall risk factors and the persistence of her respiratory symptoms, I will go ahead amongst other things to rule out venous thromboembolic event. A D-dimer will be ordered along with a CT angiogram once she is more stable. I will hold on getting lower extremity Dopplers at this point. A CRP level will be ordered to better evaluate the true infectious potential of this leukocytosis. Blood cultures have appropriately been drawn. There are no growth to date. Gentle hydration will be given. I will go ahead and get a BNP level; however, she may benefit from a 2D echocardiogram to help guide volume resuscitation. We agree with empiric antibiotic therapy; however, I will also add azithromycin for atypical pneumonia coverage. We will continue bilevel positive air pressure ventilation therapy scheduled at bedtime p.r.n. during the day. Oxygen will be titrated to keep O2 sats greater than or equal to about 88-90%. We will continue long and short acting bronchodilators as well as systemic steroids. She is appropriately on DVT prophylaxis. She will be placed on GI prophylaxis. Sputum will be sent for Gram stain, cultures and sensitivities. Flu and pneumonia vaccination will be addressed per protocol. Thank you very much for the consult Dr. Flores. Hopefully, she continues to improve. No acute indication for transfer to the Intensive Care Unit. We will follow along and make further recommendations as picture progresses/becomes clearer. JOB# [id number]
[2017-07-20] MEDS: ZOSYN/NS 3.375GM/50ML 3.375 GM/50 ML BAG IV SCH ×2 (02:53→09:00)
[2017-07-20 05:36] LABS: Hematocrit 37.8 % (30.3-42.9); Hemoglobin 12.3 gm/dl (10.1-14.3); Mean Corpuscular HGB Conc 33 % (30-34); Mean Corpuscular Hemoglobin 27 pg (28-32); Mean Corpuscular Volume 83 fl (79-97); Platelet Count 236 K/mm3 (140-440); Red Blood Count 4.56 M/mm3 (3.65-5.03); Red Cell Distribution Width 14.4 % (13.2-15.2)
[2017-07-20 05:56] LABS: Alanine Aminotransferase 70 units/L (7-56); Albumin 3.4 g/dL (3.9-5); BUN/Creatinine Ratio 25; Blood Urea Nitrogen 15 mg/dL (7-17); Calcium 8.7 mg/dL (8.4-10.2); Hemolysis Index 14
[2017-07-20 05:58] LABS: Bilirubin,Direct < 0.2 mg/dL (0-0.2)
[2017-07-20 06:35] LABS: Basophils % (Manual) 0 % (0.0-1.8); Total Cells Counted 100
[2017-07-20 06:36] LABS: Eosinophils % (Manual) 0 % (0.0-4.3)
[2017-07-20 06:37] LABS: Platelet Estimate Consistent w Auto
[2017-07-20] MEDS: DUONEB *Not for PRN Use IH SCH ×4 (08:00→20:37)
[2017-07-20] MEDS: HumaLOG SUB-Q SCH ×2 (08:00→12:43)
[2017-07-20] MEDS: LOVENOX SUB-Q SCH (10:00)
--- NOTE | 2017-07-20 10:32 | Progress Note ---
Assessment and Plan --Acute on chronic respiratory failure; on BiPAP --Acute exacerbation of COPD --Acute pneumonitis --Lactic acidosis; closely monitor --History of seizure disorder -Continue with NIPPV -Supplemental oxygen to keep O2 sats 88-90% -Bronchodilators -prn ABGs and CXR -VTE prophylaxis -Steroids, while monitoring glycemic control -Empiric antibiotics -CTA r/o PE..negative but have emphysema -add LABA/ICS to nebulized treatment -Continue macrolides for anti-nflammatory properties -Continue with anxieolytics -may need NIPPV support on discharge The high probability of a clinically significant, sudden or life threatening deterioration of the [respiratory, infectious disease] system(s) required my full and direct attention, intervention and personal management. The aggregate critical care time was [32] minutes. This time is in addition to time spent performing reported procedures but includes the following: [x] Data Review and interpretation [x] Patient assessment and monitoring of vital signs [x] Documentation [x] Medication orders and management Subjective Date of service: 07/20/17 Interval history: Follow up for Hypoxic respiratory failure, COPD with AE Patient seen and examined. Vitals, labs, medications, chart and imaging reviewed. Patient is severely hypoxic, on BiPAP, tachypneic and restless Objective - Exam Narrative Exam: Patient in respiratory distress and on BiPAP General appearance: Present: severe distress, chronically ill other ( tachypneic ) - EENT Eyes: Present: PERRL, EOM intact - Neck Neck: Present: supple - Respiratory Respiratory effort: labored Respiratory: bilateral: diminished, wheezing, negative: rales, rhonchi - Cardiovascular Rhythm: regular Heart Sounds: Present: S1 & S2 - Extremities Extremities: no ischemia, No edema - Abdominal General gastrointestinal: soft, non-tender, non-distended, normal bowel sounds - Integumentary Integumentary: Present: clear, warm - Psychiatric Psychiatric: appropriate mood/affect, agitated - Neurologic Neurologic: moves all extremities Vital Signs - 12hr 07/19/17 07/20/17 07/20/17 23:44 00:04 00:09 Temperature 98.3 F Pulse Rate 69 Pulse Rate [ Anterior Bilateral Throughout] Pulse Rate [ 75 Right Radial] Respiratory 18 22 Rate Respiratory 22 Rate [Abdomen] Respiratory Rate [Anterior Bilateral Throughout] Blood Pressure 139/74 O2 Sat by Pulse 99 Oximetry 07/20/17 07/20/17 07/20/17 05:09 07:53 08:00 Temperature 98.0 F Pulse Rate 65 71 Pulse Rate [ 71 Anterior Bilateral Throughout] Pulse Rate [ Right Radial] Respiratory 18 15 Rate Respiratory Rate [Abdomen] Respiratory 15 Rate [Anterior Bilateral Throughout] Blood Pressure 174/79 O2 Sat by Pulse 100 98 Oximetry CBC and BMP: 07/21/17 14:43 07/20/17 05:14 ABG, PT/INR, D-dimer: ABG POC ABG pH 7.397 (7.35-7.45) 07/19/17 12:40 POC ABG pCO2 53.5 (35-45) H 07/19/17 12:40 POC ABG pO2 79 (80-105) L 07/19/17 12:40 POC ABG HCO3 32.9 07/19/17 12:40 POC ABG Total CO2 34 07/19/17 12:40 POC ABG O2 Sat 95 07/19/17 12:40 PT/INR, D-dimer PT 13.5 Sec. (12.2-14.9) 07/18/17 09:28 INR 0.98 (0.87-1.13) 07/18/17 09:28 D-Dimer 150.33 ng/mlDDU (0-234) 07/19/17 16:36 Abnormal lab findings: Abnormal Labs 07/18/17 07/18/17 07/18/17 09:28 09:28 10:51 WBC 19.1 H RBC 5.13 H MCH 27 L Lymph % (Auto) 9.1 L [place] # 0.9 H Seg Neutrophils % 85.8 H Seg Neuts % (Manual) Lymphocytes % (Manual) Seg Neutrophils # 16.4 H Seg Neutrophils # Man Lymphocytes # (Manual) POC ABG pCO2 62.0 H POC ABG pO2 160 H Chloride 94.7 L Creatinine 0.5 L Glucose 154 H POC Glucose Lactic Acid AST 71 H ALT 66 H Alkaline Phosphatase 170 H Albumin 3.7 L 07/18/17 07/18/17 07/18/17 12:05 13:27 14:04 WBC RBC MCH Lymph % (Auto) [place] # Seg Neutrophils % Seg Neuts % (Manual) Lymphocytes % (Manual) Seg Neutrophils # Seg Neutrophils # Man Lymphocytes # (Manual) POC ABG pCO2 POC ABG pO2 Chloride Creatinine Glucose POC Glucose Lactic Acid 2.60 H* 3.80 H* 3.10 H* AST ALT Alkaline Phosphatase Albumin 07/18/17 07/18/17 07/18/17 17:39 18:23 20:10 WBC RBC MCH Lymph % (Auto) [place] # Seg Neutrophils % Seg Neuts % (Manual) Lymphocytes % (Manual) Seg Neutrophils # Seg Neutrophils # Man Lymphocytes # (Manual) POC ABG pCO2 POC ABG pO2 Chloride Creatinine Glucose POC Glucose Lactic Acid 2.20 H* 3.10 H* 4.10 H* AST ALT Alkaline Phosphatase Albumin 07/18/17 07/18/17 07/19/17 20:11 22:36 06:31 WBC RBC MCH Lymph % (Auto) [place] # Seg Neutrophils % Seg Neuts % (Manual) Lymphocytes % (Manual) Seg Neutrophils # Seg Neutrophils # Man Lymphocytes # (Manual) POC ABG pCO2 POC ABG pO2 Chloride Creatinine Glucose POC Glucose 161 H Lactic Acid 2.30 H* 2.40 H* AST ALT Alkaline Phosphatase Albumin 07/19/17 07/19/17 07/19/17 10:29 12:40 12:55 WBC RBC MCH Lymph % (Auto) [place] # Seg Neutrophils % Seg Neuts % (Manual) Lymphocytes % (Manual) Seg Neutrophils # Seg Neutrophils # Man Lymphocytes # (Manual) POC ABG pCO2 53.5 H POC ABG pO2 79 L Chloride Creatinine Glucose POC Glucose Lactic Acid 2.10 H* 2.40 H* AST ALT Alkaline Phosphatase Albumin 07/19/17 07/20/17 07/20/17 21:21 05:14 05:14 WBC 14.2 H RBC MCH 27 L Lymph % (Auto) [place] # Seg Neutrophils % Seg Neuts % (Manual) 94.0 H Lymphocytes % (Manual) 4.0 L Seg Neutrophils # Seg Neutrophils # Man 13.3 H Lymphocytes # (Manual) 0.6 L POC ABG pCO2 POC ABG pO2 Chloride Creatinine 0.6 L Glucose 211 H POC Glucose 159 H Lactic Acid AST 51 H ALT 70 H Alkaline Phosphatase 135 H Albumin 3.4 L 07/20/17 05:14 WBC RBC MCH Lymph % (Auto) [place] # Seg Neutrophils % Seg Neuts % (Manual) Lymphocytes % (Manual) Seg Neutrophils # Seg Neutrophils # Man Lymphocytes # (Manual) POC ABG pCO2 POC ABG pO2 Chloride Creatinine Glucose POC Glucose Lactic Acid 3.40 H* AST ALT Alkaline Phosphatase Albumin
[2017-07-20] MEDS: KEPPRA PO SCH ×2 (11:00→21:44)
[2017-07-20] MEDS: ZITHROMAX 500 MG in NACL 0.9% 250ML 250 ML IV SCH (12:55)
--- NOTE | 2017-07-20 15:36 | Progress Note ---
Assessment and Plan Assessment and plan: --Acute on chronic respiratory failure; on BiPAP Continue nebulizers, IV steroids and pulmonary following Wean from BiPAP as tolerated, transition to Ventimask If no improvement intubate as needed --Acute pneumonitis; IV antibiotics, supportive care --Lactic acidosis; trending down, due to acute pneumonitis --Leukocytosis; secondary to acute pneumonitis, trending down --Acute exacerbation of COPD/acute bronchitis Nebulizers, oxygen, BiPAP as needed, intubate if no improvement, pulmonary --History of seizure disorder; seizure precautions Continue antiepileptic medications, no new episodes of seizure --DVT prophylaxis; Lovenox Closely monitor the patient and adjust management as needed. Plan of care is reviewed with the patient and her nurse History Interval history: Patient seen and examined in his room this afternoon medical records reviewed Patient remains on BiPAP, not in acute distress Alert awake oriented 3 Vital signs reviewed No new events reported by the nursing staff Hospitalist Physical - Constitutional Vitals: Temp Pulse Resp BP Pulse Ox 97.8 F 64 18 174/73 96 07/20/17 13:08 07/20/17 13:08 07/20/17 13:08 07/20/17 13:08 07/20/17 13:08 General appearance: Present: mild distress, well-nourished, other (on BiPAP) - EENT Eyes: Present: PERRL, EOM intact - Neck Neck: Present: supple, normal ROM - Respiratory Respiratory effort: normal Respiratory: bilateral: diminished, wheezing, negative: rales, rhonchi - Cardiovascular Rhythm: regular Heart Sounds: Present: S1 & S2 - Extremities Extremities: no ischemia, pulses intact - Abdominal General gastrointestinal: soft, non-tender, non-distended, normal bowel sounds - Integumentary Integumentary: Present: clear, warm - Psychiatric Psychiatric: appropriate mood/affect, cooperative - Neurologic Neurologic: CNII-XII intact, moves all extremities Results - Labs CBC & Chem 7: 07/20/17 05:14 07/20/17 05:14 Labs: Laboratory Last Values WBC 14.2 K/mm3 (4.5-11.0) H 07/20/17 05:14 RBC 4.56 M/mm3 (3.65-5.03) 07/20/17 05:14 Hgb 12.3 gm/dl (10.1-14.3) 07/20/17 05:14 Hct 37.8 % (30.3-42.9) 07/20/17 05:14 MCV 83 fl (79-97) 07/20/17 05:14 MCH 27 pg (28-32) L 07/20/17 05:14 MCHC 33 % (30-34) 07/20/17 05:14 RDW 14.4 % (13.2-15.2) 07/20/17 05:14 Plt Count 236 K/mm3 (140-440) 07/20/17 05:14 Lymph % (Auto) 9.1 % (13.4-35.0) L 07/18/17 09:28 [place] % (Auto) 4.9 % (0.0-7.3) 07/18/17 09:28 Eos % (Auto) 0.0 % (0.0-4.3) 07/18/17 09:28 Baso % (Auto) 0.2 % (0.0-1.8) 07/18/17 09:28 Lymph # 1.7 K/mm3 (1.2-5.4) 07/18/17 09:28 [place] # 0.9 K/mm3 (0.0-0.8) H 07/18/17 09:28 Eos # 0.0 K/mm3 (0.0-0.4) 07/18/17 09:28 Baso # 0.0 K/mm3 (0.0-0.1) 07/18/17 09:28 Add Manual Diff Complete 07/20/17 05:14 Total Counted 100 07/20/17 05:14 Seg Neutrophils % [employer] 07/20/17 05:14 Seg Neuts % (Manual) 94.0 % (40.0-70.0) H 07/20/17 05:14 Band Neutrophils % 0 % 07/20/17 05:14 Lymphocytes % (Manual) 4.0 % (13.4-35.0) L 07/20/17 05:14 Reactive Lymphs % (Man) 0 % 07/20/17 05:14 Monocytes % (Manual) 2.0 % (0.0-7.3) 07/20/17 05:14 Eosinophils % (Manual) 0 % (0.0-4.3) 07/20/17 05:14 Basophils % (Manual) 0 % (0.0-1.8) 07/20/17 05:14 Metamyelocytes % 0 % 07/20/17 05:14 Myelocytes % 0 % 07/20/17 05:14 Promyelocytes % 0 % 07/20/17 05:14 Blast Cells % 0 % 07/20/17 05:14 Nucleated RBC % Not Reportable 07/20/17 05:14 Seg Neutrophils # 16.4 K/mm3 (1.8-7.7) H 07/18/17 09:28 Seg Neutrophils # Man 13.3 K/mm3 (1.8-7.7) H 07/20/17 05:14 Band Neutrophils # 0.0 K/mm3 07/20/17 05:14 Lymphocytes # (Manual) 0.6 K/mm3 (1.2-5.4) L 07/20/17 05:14 Abs React Lymphs (Man) 0.0 K/mm3 07/20/17 05:14 Monocytes # (Manual) 0.3 K/mm3 (0.0-0.8) 07/20/17 05:14 Eosinophils # (Manual) 0.0 K/mm3 (0.0-0.4) 07/20/17 05:14 Basophils # (Manual) 0.0 K/mm3 (0.0-0.1) 07/20/17 05:14 Metamyelocytes # 0.0 K/mm3 07/20/17 05:14 Myelocytes # 0.0 K/mm3 07/20/17 05:14 Promyelocytes # 0.0 K/mm3 07/20/17 05:14 Blast Cells # 0.0 K/mm3 07/20/17 05:14 WBC Morphology Not Reportable 07/20/17 05:14 Hypersegmented Neuts Not Reportable 07/20/17 05:14 Hyposegmented Neuts Not Reportable 07/20/17 05:14 Hypogranular Neuts Not Reportable 07/20/17 05:14 Smudge Cells Not Reportable 07/20/17 05:14 Toxic Granulation Not Reportable 07/20/17 05:14 Toxic Vacuolation Not Reportable 07/20/17 05:14 Dohle Bodies Not Reportable 07/20/17 05:14 Pelger-Huet Anomaly Not Reportable 07/20/17 05:14 Varinder Rods Not Reportable 07/20/17 05:14 Platelet Estimate Consistent w auto 07/20/17 05:14 Clumped Platelets Not Reportable 07/20/17 05:14 Plt Clumps, EDTA Not Reportable 07/20/17 05:14 Large Platelets Not Reportable 07/20/17 05:14 Giant Platelets Not Reportable 07/20/17 05:14 Platelet Satelliting Not Reportable 07/20/17 05:14 Plt Morphology Comment Not Reportable 07/20/17 05:14 RBC Morphology Not Reportable 07/20/17 05:14 Dimorphic RBCs Not Reportable 07/20/17 05:14 Polychromasia Not Reportable 07/20/17 05:14 Hypochromasia Not Reportable 07/20/17 05:14 Poikilocytosis Not Reportable 07/20/17 05:14 Anisocytosis Not Reportable 07/20/17 05:14 Microcytosis Not Reportable 07/20/17 05:14 Macrocytosis Not Reportable 07/20/17 05:14 Spherocytes Not Reportable 07/20/17 05:14 Pappenheimer Bodies Not Reportable 07/20/17 05:14 Sickle Cells Not Reportable 07/20/17 05:14 Target Cells Not Reportable 07/20/17 05:14 Tear Drop Cells Not Reportable 07/20/17 05:14 Ovalocytes Not Reportable 07/20/17 05:14 Helmet Cells Not Reportable 07/20/17 05:14 Mcfarland-Stilwell Bodies Not Reportable 07/20/17 05:14 Deane Rings Not Reportable 07/20/17 05:14 Burns Cells Not Reportable 07/20/17 05:14 Bite Cells Not Reportable 07/20/17 05:14 Crenated Cell Not Reportable 07/20/17 05:14 Elliptocytes Not Reportable 07/20/17 05:14 Acanthocytes (Spur) Not Reportable 07/20/17 05:14 Rouleaux Not Reportable 07/20/17 05:14 Hemoglobin C Crystals Not Reportable 07/20/17 05:14 Schistocytes Not Reportable 07/20/17 05:14 Malaria parasites Not Reportable 07/20/17 05:14 Robert Bodies Not Reportable 07/20/17 05:14 Hem Pathologist Commnt No 07/20/17 05:14 PT 13.5 Sec. (12.2-14.9) 07/18/17 09:28 INR 0.98 (0.87-1.13) 07/18/17 09:28 D-Dimer 150.33 ng/mlDDU (0-234) 07/19/17 16:36 POC ABG pH 7.397 (7.35-7.45) 07/19/17 12:40 POC ABG pCO2 53.5 (35-45) H 07/19/17 12:40 POC ABG pO2 79 (80-105) L 07/19/17 12:40 POC ABG HCO3 32.9 07/19/17 12:40 POC ABG Total CO2 34 07/19/17 12:40 POC ABG O2 Sat 95 07/19/17 12:40 POC ABG Base Excess 8 07/19/17 12:40 VBG pH 7.327 (7.320-7.420) 07/18/17 09:28 FiO2 25 % 07/19/17 12:40 Sodium 142 mmol/L (137-145) 07/20/17 05:14 Potassium 4.2 mmol/L (3.6-5.0) 07/20/17 05:14 Chloride 101.8 mmol/L (98-107) 07/20/17 05:14 Carbon Dioxide 25 mmol/L (22-30) 07/20/17 05:14 Anion Gap 19 mmol/L 07/20/17 05:14 BUN 15 mg/dL (7-17) 07/20/17 05:14 Creatinine 0.6 mg/dL (0.7-1.2) L 07/20/17 05:14 Estimated GFR > 60 ml/min 07/20/17 05:14 BUN/Creatinine Ratio 25 % 07/20/17 05:14 Glucose 211 mg/dL (65-100) H 07/20/17 05:14 POC Glucose 197 (70-105) H 07/20/17 12:38 Lactic Acid 3.40 mmol/L (0.7-2.0) H* 07/20/17 13:39 Calcium 8.7 mg/dL (8.4-10.2) 07/20/17 05:14 Magnesium 2.30 mg/dL (1.7-2.3) 07/18/17 09:28 Total Bilirubin 0.20 mg/dL (0.1-1.2) 07/20/17 05:14 Direct Bilirubin < 0.2 mg/dL (0-0.2) 07/20/17 05:14 AST 51 units/L (5-40) H 07/20/17 05:14 ALT 70 units/L (7-56) H 07/20/17 05:14 Alkaline Phosphatase 135 units/L (35-129) H 07/20/17 05:14 C-Reactive Protein 0.50 mg/dL (0.00-1.30) 07/19/17 19:46 NT-Pro-B Natriuret Pep 440.4 pg/mL (0-900) 07/19/17 19:46 Total Protein 6.4 g/dL (6.3-8.2) 07/20/17 05:14 Albumin 3.4 g/dL (3.9-5) L 07/20/17 05:14 Albumin/Globulin Ratio 1.1 % 07/20/17 05:14 Urine Color Yellow (Yellow) 07/18/17 13:56 Urine Turbidity Clear (Clear) 07/18/17 13:56 Urine pH 6.0 (5.0-7.0) 07/18/17 13:56 Ur Specific [place] 1.016 (1.003-1.030) 07/18/17 13:56 Urine Protein 30 mg/dl mg/dL (Negative) 07/18/17 13:56 Urine Glucose (UA) Neg mg/dL (Negative) 07/18/17 13:56 Urine Ketones Neg mg/dL (Negative) 07/18/17 13:56 Urine Blood Neg (Negative) 07/18/17 13:56 Urine Nitrite Neg (Negative) 07/18/17 13:56 Urine Bilirubin Neg (Negative) 07/18/17 13:56 Urine Urobilinogen < 2.0 mg/dL (<2.0) 07/18/17 13:56 Ur Leukocyte Esterase Neg (Negative) 07/18/17 13:56 Urine WBC (Auto) 2.0 /HPF (0.0-6.0) 07/18/17 13:56 Urine RBC (Auto) 1.0 /HPF (0.0-6.0) 07/18/17 13:56 Urine Mucus 1+ /HPF 07/18/17 13:56
--- NOTE | 2017-07-20 18:16 | Cat Scan Report ---
FINAL REPORT EXAM: CT ANGIO CHEST HISTORY: pulmonary embolism TECHNIQUE: CT chest CT angiogram with reconstructions PRIORS: None. FINDINGS: There is no evidence of filling defect within the central pulmonary vasculature to suggest the presence of acute pulmonary embolus. No evidence of mediastinal pathologic lymph node enlargement Heart and great vessels are unremarkable. The aorta is normal in caliber. There is no evidence for aortic dissection. No focal pulmonary infiltrate identified. No pleural fluid collection seen. There are extensive bilateral centrilobular pulmonary emphysematous changes Visualized portion of the upper abdomen demonstrates no acute change. IMPRESSION: Negative. No CT evidence of acute pulmonary embolus
[2017-07-20] MEDS: PROVENTIL IH PRN (20:53)
[2017-07-20] MEDS: ATIVAN IV PRN (23:55)
[2017-07-21] MEDS ORDERED: APRESOLINE IV ONE (00:12)
[2017-07-21] MEDS: HumaLOG SUB-Q SCH ×6 (02:06→23:52)
[2017-07-21] MEDS: TYLENOL PO SCH ×4 (02:07→23:52)
[2017-07-21] MEDS: ZOSYN/NS 3.375GM/50ML 3.375 GM/50 ML BAG IV SCH ×5 (02:31→22:43)
[2017-07-21] MEDS ORDERED: APRESOLINE IV NR (08:30)
[2017-07-21] MEDS: DUONEB *Not for PRN Use IH SCH ×4 (08:30→21:32)
[2017-07-21] MEDS ORDERED: APRESOLINE IV PRN (09:00)
[2017-07-21] MEDS: NORVASC PO SCH (10:46)
[2017-07-21] MEDS: KEPPRA PO SCH ×2 (10:46→22:42)
[2017-07-21] MEDS: ZITHROMAX PO SCH (10:47)
[2017-07-21] MEDS: LOVENOX SUB-Q SCH (10:47)
[2017-07-21] MEDS: DIOVAN PO SCH (10:57)
--- NOTE | 2017-07-21 11:22 | Progress Note ---
Assessment and Plan Assessment and plan: 62-year-old woman with history of COPD, hypertension, seizure, diabetes, asthma , breast cancer comes emergency room with complaints of shortness of breath and cough productive of yellow phlegm --Acute on chronic respiratory failure; on BiPAP Continue nebulizers, IV steroids and pulmonary following Wean from BiPAP as tolerated, transition to Ventimask If no improvement intubate as needed --Acute pneumonitis; IV antibiotics, supportive care --Lactic acidosis; trending down, due to acute pneumonitis --Leukocytosis; secondary to acute pneumonitis, trending down --Acute exacerbation of COPD/acute bronchitis Nebulizers, oxygen, BiPAP as needed, intubate if no improvement, pulmonary --History of seizure disorder; seizure precautions Continue antiepileptic medications, no new episodes of seizure --Transaminitis; unknown etiology, trending down, continue supportive care Liver ultrasound and GI evaluation if no improvement --DVT prophylaxis; Lovenox Closely monitor the patient and adjust management as needed. Plan of care is reviewed with the patient and her nurse Hospitalist Physical - Constitutional Vitals: Temp Pulse Resp BP Pulse Ox 98.2 F 74 18 186/99 97 07/21/17 05:05 07/21/17 05:05 07/21/17 05:05 07/21/17 10:38 07/21/17 05:05 General appearance: Present: mild distress, well-nourished, other (on BiPAP) Results - Labs CBC & Chem 7: 07/20/17 05:14 07/20/17 05:14 Labs: Laboratory Last Values WBC 14.2 K/mm3 (4.5-11.0) H 07/20/17 05:14 RBC 4.56 M/mm3 (3.65-5.03) 07/20/17 05:14 Hgb 12.3 gm/dl (10.1-14.3) 07/20/17 05:14 Hct 37.8 % (30.3-42.9) 07/20/17 05:14 MCV 83 fl (79-97) 07/20/17 05:14 MCH 27 pg (28-32) L 07/20/17 05:14 MCHC 33 % (30-34) 07/20/17 05:14 RDW 14.4 % (13.2-15.2) 07/20/17 05:14 Plt Count 236 K/mm3 (140-440) 07/20/17 05:14 Lymph % (Auto) 9.1 % (13.4-35.0) L 07/18/17 09:28 [place] % (Auto) 4.9 % (0.0-7.3) 07/18/17 09:28 Eos % (Auto) 0.0 % (0.0-4.3) 07/18/17 09:28 Baso % (Auto) 0.2 % (0.0-1.8) 07/18/17 09:28 Lymph # 1.7 K/mm3 (1.2-5.4) 07/18/17 09:28 [place]ie # 0.9 K/mm3 (0.0-0.8) H 07/18/17 09:28 Eos # 0.0 K/mm3 (0.0-0.4) 07/18/17 09:28 Baso # 0.0 K/mm3 (0.0-0.1) 07/18/17 09:28 Add Manual Diff Complete 07/20/17 05:14 Total Counted 100 07/20/17 05:14 Seg Neutrophils % Outside Laborer 07/20/17 05:14 Seg Neuts % (Manual) 94.0 % (40.0-70.0) H 07/20/17 05:14 Band Neutrophils % 0 % 07/20/17 05:14 Lymphocytes % (Manual) 4.0 % (13.4-35.0) L 07/20/17 05:14 Reactive Lymphs % (Man) 0 % 07/20/17 05:14 Monocytes % (Manual) 2.0 % (0.0-7.3) 07/20/17 05:14 Eosinophils % (Manual) 0 % (0.0-4.3) 07/20/17 05:14 Basophils % (Manual) 0 % (0.0-1.8) 07/20/17 05:14 Metamyelocytes % 0 % 07/20/17 05:14 Myelocytes % 0 % 07/20/17 05:14 Promyelocytes % 0 % 07/20/17 05:14 Blast Cells % 0 % 07/20/17 05:14 Nucleated RBC % Not Reportable 07/20/17 05:14 Seg Neutrophils # 16.4 K/mm3 (1.8-7.7) H 07/18/17 09:28 Seg Neutrophils # Man 13.3 K/mm3 (1.8-7.7) H 07/20/17 05:14 Band Neutrophils # 0.0 K/mm3 07/20/17 05:14 Lymphocytes # (Manual) 0.6 K/mm3 (1.2-5.4) L 07/20/17 05:14 Abs React Lymphs (Man) 0.0 K/mm3 07/20/17 05:14 Monocytes # (Manual) 0.3 K/mm3 (0.0-0.8) 07/20/17 05:14 Eosinophils # (Manual) 0.0 K/mm3 (0.0-0.4) 07/20/17 05:14 Basophils # (Manual) 0.0 K/mm3 (0.0-0.1) 07/20/17 05:14 Metamyelocytes # 0.0 K/mm3 07/20/17 05:14 Myelocytes # 0.0 K/mm3 07/20/17 05:14 Promyelocytes # 0.0 K/mm3 07/20/17 05:14 Blast Cells # 0.0 K/mm3 07/20/17 05:14 WBC Morphology Not Reportable 07/20/17 05:14 Hypersegmented Neuts Not Reportable 07/20/17 05:14 Hyposegmented Neuts Not Reportable 07/20/17 05:14 Hypogranular Neuts Not Reportable 07/20/17 05:14 Smudge Cells Not Reportable 07/20/17 05:14 Toxic Granulation Not Reportable 07/20/17 05:14 Toxic Vacuolation Not Reportable 07/20/17 05:14 Dohle Bodies Not Reportable 07/20/17 05:14 Pelger-Huet Anomaly Not Reportable 07/20/17 05:14 Varinder Rods Not Reportable 07/20/17 05:14 Platelet Estimate Consistent w auto 07/20/17 05:14 Clumped Platelets Not Reportable 07/20/17 05:14 Plt Clumps, EDTA Not Reportable 07/20/17 05:14 Large Platelets Not Reportable 07/20/17 05:14 Giant Platelets Not Reportable 07/20/17 05:14 Platelet Satelliting Not Reportable 07/20/17 05:14 Plt Morphology Comment Not Reportable 07/20/17 05:14 RBC Morphology Not Reportable 07/20/17 05:14 Dimorphic RBCs Not Reportable 07/20/17 05:14 Polychromasia Not Reportable 07/20/17 05:14 Hypochromasia Not Reportable 07/20/17 05:14 Poikilocytosis Not Reportable 07/20/17 05:14 Anisocytosis Not Reportable 07/20/17 05:14 Microcytosis Not Reportable 07/20/17 05:14 Macrocytosis Not Reportable 07/20/17 05:14 Spherocytes Not Reportable 07/20/17 05:14 Pappenheimer Bodies Not Reportable 07/20/17 05:14 Sickle Cells Not Reportable 07/20/17 05:14 Target Cells Not Reportable 07/20/17 05:14 Tear Drop Cells Not Reportable 07/20/17 05:14 Ovalocytes Not Reportable 07/20/17 05:14 Helmet Cells Not Reportable 07/20/17 05:14 [place] Bodies Not Reportable 07/20/17 05:14 [place] Rings Not Reportable 07/20/17 05:14 Ammy Cells Not Reportable 07/20/17 05:14 Bite Cells Not Reportable 07/20/17 05:14 Crenated Cell Not Reportable 07/20/17 05:14 Elliptocytes Not Reportable 07/20/17 05:14 Acanthocytes (Spur) Not Reportable 07/20/17 05:14 Rouleaux Not Reportable 07/20/17 05:14 Hemoglobin C Crystals Not Reportable 07/20/17 05:14 Schistocytes Not Reportable 07/20/17 05:14 Malaria parasites Not Reportable 07/20/17 05:14 Robert Bodies Not Reportable 07/20/17 05:14 Hem Pathologist Commnt No 07/20/17 05:14 PT 13.5 Sec. (12.2-14.9) 07/18/17 09:28 INR 0.98 (0.87-1.13) 07/18/17 09:28 D-Dimer 150.33 ng/mlDDU (0-234) 07/19/17 16:36 POC ABG pH 7.397 (7.35-7.45) 07/19/17 12:40 POC ABG pCO2 53.5 (35-45) H 07/19/17 12:40 POC ABG pO2 79 (80-105) L 07/19/17 12:40 POC ABG HCO3 32.9 07/19/17 12:40 POC ABG Total CO2 34 07/19/17 12:40 POC ABG O2 Sat 95 07/19/17 12:40 POC ABG Base Excess 8 07/19/17 12:40 VBG pH 7.327 (7.320-7.420) 07/18/17 09:28 FiO2 25 % 07/19/17 12:40 Sodium 142 mmol/L (137-145) 07/20/17 05:14 Potassium 4.2 mmol/L (3.6-5.0) 07/20/17 05:14 Chloride 101.8 mmol/L (98-107) 07/20/17 05:14 Carbon Dioxide 25 mmol/L (22-30) 07/20/17 05:14 Anion Gap 19 mmol/L 07/20/17 05:14 BUN 15 mg/dL (7-17) 07/20/17 05:14 Creatinine 0.6 mg/dL (0.7-1.2) L 07/20/17 05:14 Estimated GFR > 60 ml/min 07/20/17 05:14 BUN/Creatinine Ratio 25 % 07/20/17 05:14 Glucose 211 mg/dL (65-100) H 07/20/17 05:14 POC Glucose 152 (70-105) H 07/21/17 06:12 Lactic Acid 3.40 mmol/L (0.7-2.0) H* 07/20/17 13:39 Calcium 8.7 mg/dL (8.4-10.2) 07/20/17 05:14 Magnesium 2.30 mg/dL (1.7-2.3) 07/18/17 09:28 Total Bilirubin 0.20 mg/dL (0.1-1.2) 07/20/17 05:14 Direct Bilirubin < 0.2 mg/dL (0-0.2) 07/20/17 05:14 AST 51 units/L (5-40) H 07/20/17 05:14 ALT 70 units/L (7-56) H 07/20/17 05:14 Alkaline Phosphatase 135 units/L (35-129) H 07/20/17 05:14 C-Reactive Protein 0.50 mg/dL (0.00-1.30) 07/19/17 19:46 NT-Pro-B Natriuret Pep 440.4 pg/mL (0-900) 07/19/17 19:46 Total Protein 6.4 g/dL (6.3-8.2) 07/20/17 05:14 Albumin 3.4 g/dL (3.9-5) L 07/20/17 05:14 Albumin/Globulin Ratio 1.1 % 07/20/17 05:14 Urine Color Yellow (Yellow) 07/18/17 13:56 Urine Turbidity Clear (Clear) 07/18/17 13:56 Urine pH 6.0 (5.0-7.0) 07/18/17 13:56 Ur Specific [place] 1.016 (1.003-1.030) 07/18/17 13:56 Urine Protein 30 mg/dl mg/dL (Negative) 07/18/17 13:56 Urine Glucose (UA) Neg mg/dL (Negative) 07/18/17 13:56 Urine Ketones Neg mg/dL (Negative) 07/18/17 13:56 Urine Blood Neg (Negative) 07/18/17 13:56 Urine Nitrite Neg (Negative) 07/18/17 13:56 Urine Bilirubin Neg (Negative) 07/18/17 13:56 Urine Urobilinogen < 2.0 mg/dL (<2.0) 07/18/17 13:56 Ur Leukocyte Esterase Neg (Negative) 07/18/17 13:56 Urine WBC (Auto) 2.0 /HPF (0.0-6.0) 07/18/17 13:56 Urine RBC (Auto) 1.0 /HPF (0.0-6.0) 07/18/17 13:56 Urine Mucus 1+ /HPF 07/18/17 13:56
[2017-07-21 15:15] LABS: Basophils % (Auto) 0.1 % (0.0-1.8); Hemoglobin 13.9 gm/dl (10.1-14.3); Lymphocytes # (Auto) 0.9 K/mm3 (1.2-5.4); Lymphocytes % (Auto) 7.4 % (13.4-35.0); Mean Corpuscular HGB Conc 32 % (30-34); Mean Corpuscular Hemoglobin 26 pg (28-32); Mean Corpuscular Volume 83 fl (79-97); Monocytes # (Auto) 0.3 K/mm3 (0.0-0.8); Monocytes % (Auto) 2.6 % (0.0-7.3); Platelet Count 305 K/mm3 (140-440); Red Blood Count 5.28 M/mm3 (3.65-5.03); Red Cell Distribution Width 14.4 % (13.2-15.2)
[2017-07-21 15:18] LABS: Alanine Aminotransferase 78 units/L (7-56); Albumin 3.8 g/dL (3.9-5)
[2017-07-21 15:20] LABS: Bilirubin,Direct < 0.2 mg/dL (0-0.2)
[2017-07-21 15:42] LABS: Hematocrit 43.9 % (30.3-42.9)
[2017-07-21] MEDS: XANAX PO PRN (16:25)
--- NOTE | 2017-07-21 20:29 | Progress Note ---
Assessment and Plan --Acute on chronic respiratory failure; on BiPAP --Acute exacerbation of COPD --Acute pneumonitis --Lactic acidosis; closely monitor --History of seizure disorder -erythrocytosis, possibly from chronic hypoxemia -Continue with NIPPV -Supplemental oxygen to keep O2 sats 88-90% -Bronchodilators -prn ABGs and CXR -VTE prophylaxis -Steroids, while monitoring glycemic control -Empiric antibiotics -CTA r/o PE..negative but have emphysema -add LABA/ICS to nebulized treatment -Continue macrolides for anti-inflammatory properties -Continue with anxieolytics -Get 2 D echocardiogram to evaluate for pulmonary HTN -may need NIPPV support on discharge The high probability of a clinically significant, sudden or life threatening deterioration of the [respiratory, infectious disease] system(s) required my full and direct attention, intervention and personal management. The aggregate critical care time was [32] minutes. This time is in addition to time spent performing reported procedures but includes the following: [x] Data Review and interpretation [x] Patient assessment and monitoring of vital signs [x] Documentation [x] Medication orders and management Subjective Date of service: 07/21/17 Interval history: Follow up for Hypoxic respiratory failure, COPD with AE Patient seen and examined. Vitals, labs, medications, chart and imaging reviewed. Patient is on venturi mask, requesting her BIPAP. at the bedside, Objective - Exam Narrative Exam: Patient in respiratory distress and on BiPAP General appearance: Present: moderate distress, chronically ill other ( tachypneic ) - EENT Eyes: Present: PERRL, EOM intact - Neck Neck: Present: supple - Respiratory Respiratory effort: labored Respiratory: bilateral: diminished, wheezing, negative: rales, rhonchi - Cardiovascular Rhythm: regular Heart Sounds: Present: S1 & S2 - Extremities Extremities: no ischemia, No edema - Abdominal General gastrointestinal: soft, non-tender, non-distended, normal bowel sounds - Integumentary Integumentary: Present: clear, warm - Psychiatric Psychiatric: appropriate mood/affect, agitated - Neurologic Neurologic: moves all extremities Vital Signs - 12hr 07/21/17 07/21/17 07/21/17 08:48 10:38 12:31 Pulse Rate [ 68 Bilateral Throughout] Respiratory 14 Rate [Bilateral Throughout] Blood Pressure 203/112 Blood Pressure 186/99 [Left] O2 Sat by Pulse Oximetry 07/21/17 07/21/17 07/21/17 12:32 14:40 16:05 Pulse Rate [ 71 74 Bilateral Throughout] Respiratory 16 22 Rate [Bilateral Throughout] Blood Pressure Blood Pressure [Left] O2 Sat by Pulse 99 Oximetry 07/21/17 07/21/17 16:15 18:32 Pulse Rate [ 71 Bilateral Throughout] Respiratory 20 Rate [Bilateral Throughout] Blood Pressure Blood Pressure [Left] O2 Sat by Pulse 98 Oximetry CBC and BMP: 07/21/17 14:43 07/20/17 05:14 ABG, PT/INR, D-dimer: ABG POC ABG pH 7.397 (7.35-7.45) 07/19/17 12:40 POC ABG pCO2 53.5 (35-45) H 07/19/17 12:40 POC ABG pO2 79 (80-105) L 07/19/17 12:40 POC ABG HCO3 32.9 07/19/17 12:40 POC ABG Total CO2 34 07/19/17 12:40 POC ABG O2 Sat 95 07/19/17 12:40 PT/INR, D-dimer PT 13.5 Sec. (12.2-14.9) 07/18/17 09:28 INR 0.98 (0.87-1.13) 07/18/17 09:28 D-Dimer 150.33 ng/mlDDU (0-234) 07/19/17 16:36 Abnormal lab findings: Abnormal Labs 07/18/17 07/18/17 07/18/17 09:28 09:28 10:51 WBC 19.1 H RBC 5.13 H Hct MCH 27 L Lymph % (Auto) 9.1 L Lymph # [place] # 0.9 H Seg Neutrophils % 85.8 H Seg Neuts % (Manual) Lymphocytes % (Manual) Seg Neutrophils # 16.4 H Seg Neutrophils # Man Lymphocytes # (Manual) POC ABG pCO2 62.0 H POC ABG pO2 160 H Chloride 94.7 L Creatinine 0.5 L Glucose 154 H POC Glucose Lactic Acid AST 71 H ALT 66 H Alkaline Phosphatase 170 H Albumin 3.7 L 07/18/17 07/18/17 07/18/17 12:05 13:27 14:04 WBC RBC Hct MCH Lymph % (Auto) Lymph # [place] # Seg Neutrophils % Seg Neuts % (Manual) Lymphocytes % (Manual) Seg Neutrophils # Seg Neutrophils # Man Lymphocytes # (Manual) POC ABG pCO2 POC ABG pO2 Chloride Creatinine Glucose POC Glucose Lactic Acid 2.60 H* 3.80 H* 3.10 H* AST ALT Alkaline Phosphatase Albumin 07/18/17 07/18/17 07/18/17 17:39 18:23 20:10 WBC RBC Hct MCH Lymph % (Auto) Lymph # [place] # Seg Neutrophils % Seg Neuts % (Manual) Lymphocytes % (Manual) Seg Neutrophils # Seg Neutrophils # Man Lymphocytes # (Manual) POC ABG pCO2 POC ABG pO2 Chloride Creatinine Glucose POC Glucose Lactic Acid 2.20 H* 3.10 H* 4.10 H* AST ALT Alkaline Phosphatase Albumin 07/18/17 07/18/17 07/19/17 20:11 22:36 06:31 WBC RBC Hct MCH Lymph % (Auto) Lymph # [place] # Seg Neutrophils % Seg Neuts % (Manual) Lymphocytes % (Manual) Seg Neutrophils # Seg Neutrophils # Man Lymphocytes # (Manual) POC ABG pCO2 POC ABG pO2 Chloride Creatinine Glucose POC Glucose 161 H Lactic Acid 2.30 H* 2.40 H* AST ALT Alkaline Phosphatase Albumin 07/19/17 07/19/17 07/19/17 10:29 12:40 12:55 WBC RBC Hct MCH Lymph % (Auto) Lymph # [place] # Seg Neutrophils % Seg Neuts % (Manual) Lymphocytes % (Manual) Seg Neutrophils # Seg Neutrophils # Man Lymphocytes # (Manual) POC ABG pCO2 53.5 H POC ABG pO2 79 L Chloride Creatinine Glucose POC Glucose Lactic Acid 2.10 H* 2.40 H* AST ALT Alkaline Phosphatase Albumin 07/19/17 07/20/17 07/20/17 21:21 05:14 05:14 WBC 14.2 H RBC Hct MCH 27 L Lymph % (Auto) Lymph # [place] # Seg Neutrophils % Seg Neuts % (Manual) 94.0 H Lymphocytes % (Manual) 4.0 L Seg Neutrophils # Seg Neutrophils # Man 13.3 H Lymphocytes # (Manual) 0.6 L POC ABG pCO2 POC ABG pO2 Chloride Creatinine 0.6 L Glucose 211 H POC Glucose 159 H Lactic Acid AST 51 H ALT 70 H Alkaline Phosphatase 135 H Albumin 3.4 L 07/20/17 07/20/17 07/20/17 05:14 10:17 12:38 WBC RBC Hct MCH Lymph % (Auto) Lymph # [place] # Seg Neutrophils % Seg Neuts % (Manual) Lymphocytes % (Manual) Seg Neutrophils # Seg Neutrophils # Man Lymphocytes # (Manual) POC ABG pCO2 POC ABG pO2 Chloride Creatinine Glucose POC Glucose 197 H Lactic Acid 3.40 H* 2.20 H* AST ALT Alkaline Phosphatase Albumin 07/20/17 07/20/17 07/20/17 13:39 16:54 23:09 WBC RBC Hct MCH Lymph % (Auto) Lymph # [place] # Seg Neutrophils % Seg Neuts % (Manual) Lymphocytes % (Manual) Seg Neutrophils # Seg Neutrophils # Man Lymphocytes # (Manual) POC ABG pCO2 POC ABG pO2 Chloride Creatinine Glucose POC Glucose 135 H 283 H Lactic Acid 3.40 H* AST ALT Alkaline Phosphatase Albumin 07/21/17 07/21/17 07/21/17 00:26 06:12 11:30 WBC RBC Hct MCH Lymph % (Auto) Lymph # [place] # Seg Neutrophils % Seg Neuts % (Manual) Lymphocytes % (Manual) Seg Neutrophils # Seg Neutrophils # Man Lymphocytes # (Manual) POC ABG pCO2 POC ABG pO2 Chloride Creatinine Glucose POC Glucose 151 H 152 H 142 H Lactic Acid AST ALT Alkaline Phosphatase Albumin 07/21/17 07/21/17 07/21/17 14:43 14:43 16:55 WBC 11.9 H RBC 5.28 H Hct 43.9 H D MCH 26 L Lymph % (Auto) 7.4 L Lymph # 0.9 L [place] # Seg Neutrophils % 89.9 H Seg Neuts % (Manual) Lymphocytes % (Manual) Seg Neutrophils # 10.7 H Seg Neutrophils # Man Lymphocytes # (Manual) POC ABG pCO2 POC ABG pO2 Chloride Creatinine Glucose POC Glucose 190 H Lactic Acid AST ALT 78 H Alkaline Phosphatase Albumin 3.8 L
[2017-07-21] MEDS: PERCOCET 5/325 PO PRN (21:06)
[2017-07-21] MEDS: PULMICORT IH SCH (21:32)
[2017-07-21] MEDS: BROVANA NEBU IH SCH (21:33)
[2017-07-22] MEDS: XANAX PO PRN ×2 (01:04→20:58)
[2017-07-22] MEDS: ZOSYN/NS 3.375GM/50ML 3.375 GM/50 ML BAG IV SCH ×3 (02:05→13:51)
[2017-07-22] MEDS: PROVENTIL IH PRN (03:50)
[2017-07-22] MEDS: TYLENOL PO SCH ×4 (05:46→19:22)
[2017-07-22] MEDS: HumaLOG SUB-Q SCH ×3 (07:58→17:10)
[2017-07-22] MEDS: PULMICORT IH SCH ×2 (08:10→22:19)
[2017-07-22] MEDS: BROVANA NEBU IH SCH ×2 (08:10→22:18)
[2017-07-22] MEDS: DUONEB *Not for PRN Use IH SCH ×4 (08:10→22:19)
[2017-07-22] MEDS: DIOVAN PO SCH (09:57)
[2017-07-22] MEDS: LOVENOX SUB-Q SCH (09:57)
[2017-07-22] MEDS: KEPPRA PO SCH (09:58)
[2017-07-22] MEDS: ZITHROMAX PO SCH (09:58)
[2017-07-22] MEDS: NORVASC PO SCH (09:58)
--- NOTE | 2017-07-22 10:39 | Discharge Summary ---
Providers - Providers Date of Admission: 07/18/17 15:07 Attending physician: HIGINIO MENDIOLA MD 07/19/17 11:54 Consult to Physician [CONS] Routine Comment: DR Tracey CALLED DR Caldera @1206 07/19/17 Consulting Provider: BASIM ARAUJO Physician Instructions: Reason For Exam: acute respiratory failure 07/19/17 13:57 Consult to Physician [CONS] Routine Comment: Dr Garza on floor 1359 knows about consult.. Consulting Provider: TAURUS GARZA Physician Instructions: Reason For Exam: respiratory failure Primary care physician: [employer]N Hospitalization Condition: Stable Hospital course: 62-year-old woman with history of COPD, hypertension, seizure, diabetes, asthma , breast cancer comes emergency room with complaints of shortness of breath and cough productive of yellow phlegm --Acute on chronic respiratory failure; on BiPAP Continue nebulizers, IV steroids and pulmonary following Wean from BiPAP as tolerated, transition to Ventimask If no improvement intubate as needed --Acute pneumonitis; IV antibiotics, supportive care --Lactic acidosis; trending down, due to acute pneumonitis --Leukocytosis; secondary to acute pneumonitis, trending down --Acute exacerbation of COPD/acute bronchitis Nebulizers, oxygen, BiPAP as needed, intubate if no improvement, pulmonary --History of seizure disorder; seizure precautions Continue antiepileptic medications, no new episodes of seizure --Transaminitis; unknown etiology, trending down, continue supportive care Liver ultrasound and GI evaluation if no improvement --DVT prophylaxis; Lovenox Closely monitor the patient and adjust management as needed. Plan of care is reviewed with the patient and her nurse Disposition: [place]- [facility] ([facility]) Time spent for discharge: 33 minutes Core Measure Documentation - Palliative Care Palliative Care/ Comfort Measures: Not Applicable - Core Measures Any of the following diagnoses?: none Exam - Constitutional Vitals: Temp Pulse Resp BP Pulse Ox 98.6 F 55 L 18 133/70 100 07/22/17 08:53 07/22/17 08:53 07/22/17 08:53 07/22/17 08:53 07/22/17 08:53 General appearance: Present: no acute distress, well-nourished - EENT Eyes: Present: PERRL ENT: hearing intact, clear oral mucosa - Neck Neck: Present: supple, normal ROM - Respiratory Respiratory effort: normal Respiratory: bilateral: CTA - Cardiovascular Heart Sounds: Present: S1 & S2. Absent: rub, click - Extremities Extremities: pulses symmetrical, No edema Peripheral Pulses: within normal limits - Abdominal General gastrointestinal: Present: soft, non-tender, non-distended, normal bowel sounds Female genitourinary: Present: normal - Integumentary Integumentary: Present: clear, warm, dry - Musculoskeletal Musculoskeletal: gait normal, strength equal bilaterally - Psychiatric Psychiatric: appropriate mood/affect, intact judgment & insight - Neurologic Neurologic: CNII-XII intact, moves all extremities Plan Follow up with: PRIMARY CARE,MD [Primary Care Provider] - 3-5 Days Prescriptions: ALPRAZolam [Xanax TAB] 0.25 mg PO Q8H PRN #14 tablet PRN Reason: Anxiety Haloperidol [Haldol] 1 mg PO Q4H PRN #12 tablet PRN Reason: Psychosis Hyoscyamine Subl [Levsin Sl 0.125 TAB] 0.125 mg SL Q4HR PRN #14 tablet PRN Reason: Spasms oxyCODONE /ACETAMINOPHEN [Percocet 5/325 mg] 1 tab PO Q6H PRN #14 tablet PRN Reason: Pain, Moderate (4-6) Prednisone [predniSONE 10 mg (6-Day Pack, 21 Tabs)] 10 mg PO .TAPER #1 tab.ds.pk
--- NOTE | 2017-07-22 12:28 | Progress Note ---
Subjective Date of service: 07/22/17 Principal diagnosis: Acute on Chronic Hypercapnic Hypoxemic Respiratory Failure ; AE-COPD Interval history: Patient is seen today for: Acute on Chronic Hypercapnic Hypoxemic Respiratory Failure; AE-COPD Seen and examined at bedside; 24 hour events reviewed; nursing and respiratory care staff consulted; No adverse overnight events reported to me; Objective Vital Signs - 12hr 07/22/17 07/22/17 07/22/17 00:41 00:42 02:45 Temperature 97.1 F L Pulse Rate 63 66 Pulse Rate [ 69 Bilateral Throughout] Respiratory 20 Rate Respiratory 30 H Rate [Bilateral Throughout] Blood Pressure 132/70 Blood Pressure [Left] O2 Sat by Pulse 99 100 Oximetry 07/22/17 07/22/17 07/22/17 02:55 03:00 04:00 Temperature Pulse Rate 70 61 Pulse Rate [ 71 Bilateral Throughout] Respiratory 23 Rate Respiratory 31 H Rate [Bilateral Throughout] Blood Pressure Blood Pressure [Left] O2 Sat by Pulse 99 Oximetry 07/22/17 07/22/17 07/22/17 04:46 05:52 07:31 Temperature 97.2 F L Pulse Rate 59 L 63 56 L Pulse Rate [ Bilateral Throughout] Respiratory 20 Rate Respiratory Rate [Bilateral Throughout] Blood Pressure Blood Pressure 128/66 [Left] O2 Sat by Pulse 99 99 100 Oximetry 07/22/17 07/22/17 07/22/17 08:06 08:10 08:28 Temperature Pulse Rate 56 L Pulse Rate [ 56 L 80 Bilateral Throughout] Respiratory 20 Rate Respiratory 20 24 Rate [Bilateral Throughout] Blood Pressure Blood Pressure [Left] O2 Sat by Pulse 99 Oximetry 07/22/17 08:53 Temperature 98.6 F Pulse Rate 55 L Pulse Rate [ Bilateral Throughout] Respiratory 18 Rate Respiratory Rate [Bilateral Throughout] Blood Pressure Blood Pressure 133/70 [Left] O2 Sat by Pulse 100 Oximetry CBC and BMP: 07/21/17 14:43 07/20/17 05:14 ABG, PT/INR, D-dimer: ABG POC ABG pH 7.397 (7.35-7.45) 07/19/17 12:40 POC ABG pCO2 53.5 (35-45) H 07/19/17 12:40 POC ABG pO2 79 (80-105) L 07/19/17 12:40 POC ABG HCO3 32.9 07/19/17 12:40 POC ABG Total CO2 34 07/19/17 12:40 POC ABG O2 Sat 95 07/19/17 12:40 PT/INR, D-dimer PT 13.5 Sec. (12.2-14.9) 07/18/17 09:28 INR 0.98 (0.87-1.13) 07/18/17 09:28 D-Dimer 150.33 ng/mlDDU (0-234) 07/19/17 16:36 Abnormal lab findings: Abnormal Labs 07/18/17 07/18/17 07/18/17 09:28 09:28 10:51 WBC 19.1 H RBC 5.13 H Hct MCH 27 L Lymph % (Auto) 9.1 L Lymph # [place] # 0.9 H Seg Neutrophils % 85.8 H Seg Neuts % (Manual) Lymphocytes % (Manual) Seg Neutrophils # 16.4 H Seg Neutrophils # Man Lymphocytes # (Manual) POC ABG pCO2 62.0 H POC ABG pO2 160 H Chloride 94.7 L Creatinine 0.5 L Glucose 154 H POC Glucose Lactic Acid AST 71 H ALT 66 H Alkaline Phosphatase 170 H Albumin 3.7 L 07/18/17 07/18/17 07/18/17 12:05 13:27 14:04 WBC RBC Hct MCH Lymph % (Auto) Lymph # [place] # Seg Neutrophils % Seg Neuts % (Manual) Lymphocytes % (Manual) Seg Neutrophils # Seg Neutrophils # Man Lymphocytes # (Manual) POC ABG pCO2 POC ABG pO2 Chloride Creatinine Glucose POC Glucose Lactic Acid 2.60 H* 3.80 H* 3.10 H* AST ALT Alkaline Phosphatase Albumin 07/18/17 07/18/17 07/18/17 17:39 18:23 20:10 WBC RBC Hct MCH Lymph % (Auto) Lymph # [place] # Seg Neutrophils % Seg Neuts % (Manual) Lymphocytes % (Manual) Seg Neutrophils # Seg Neutrophils # Man Lymphocytes # (Manual) POC ABG pCO2 POC ABG pO2 Chloride Creatinine Glucose POC Glucose Lactic Acid 2.20 H* 3.10 H* 4.10 H* AST ALT Alkaline Phosphatase Albumin 07/18/17 07/18/17 07/19/17 20:11 22:36 06:31 WBC RBC Hct MCH Lymph % (Auto) Lymph # [place] # Seg Neutrophils % Seg Neuts % (Manual) Lymphocytes % (Manual) Seg Neutrophils # Seg Neutrophils # Man Lymphocytes # (Manual) POC ABG pCO2 POC ABG pO2 Chloride Creatinine Glucose POC Glucose 161 H Lactic Acid 2.30 H* 2.40 H* AST ALT Alkaline Phosphatase Albumin 07/19/17 07/19/17 07/19/17 10:29 12:40 12:55 WBC RBC Hct MCH Lymph % (Auto) Lymph # [place] # Seg Neutrophils % Seg Neuts % (Manual) Lymphocytes % (Manual) Seg Neutrophils # Seg Neutrophils # Man Lymphocytes # (Manual) POC ABG pCO2 53.5 H POC ABG pO2 79 L Chloride Creatinine Glucose POC Glucose Lactic Acid 2.10 H* 2.40 H* AST ALT Alkaline Phosphatase Albumin 07/19/17 07/20/17 07/20/17 21:21 05:14 05:14 WBC 14.2 H RBC Hct MCH 27 L Lymph % (Auto) Lymph # [place] # Seg Neutrophils % Seg Neuts % (Manual) 94.0 H Lymphocytes % (Manual) 4.0 L Seg Neutrophils # Seg Neutrophils # Man 13.3 H Lymphocytes # (Manual) 0.6 L POC ABG pCO2 POC ABG pO2 Chloride Creatinine 0.6 L Glucose 211 H POC Glucose 159 H Lactic Acid AST 51 H ALT 70 H Alkaline Phosphatase 135 H Albumin 3.4 L 07/20/17 07/20/17 07/20/17 05:14 10:17 12:38 WBC RBC Hct MCH Lymph % (Auto) Lymph # [place] # Seg Neutrophils % Seg Neuts % (Manual) Lymphocytes % (Manual) Seg Neutrophils # Seg Neutrophils # Man Lymphocytes # (Manual) POC ABG pCO2 POC ABG pO2 Chloride Creatinine Glucose POC Glucose 197 H Lactic Acid 3.40 H* 2.20 H* AST ALT Alkaline Phosphatase Albumin 07/20/17 07/20/17 07/20/17 13:39 16:54 23:09 WBC RBC Hct MCH Lymph % (Auto) Lymph # [place] # Seg Neutrophils % Seg Neuts % (Manual) Lymphocytes % (Manual) Seg Neutrophils # Seg Neutrophils # Man Lymphocytes # (Manual) POC ABG pCO2 POC ABG pO2 Chloride Creatinine Glucose POC Glucose 135 H 283 H Lactic Acid 3.40 H* AST ALT Alkaline Phosphatase Albumin 07/21/17 07/21/17 07/21/17 00:26 06:12 11:30 WBC RBC Hct MCH Lymph % (Auto) Lymph # [place] # Seg Neutrophils % Seg Neuts % (Manual) Lymphocytes % (Manual) Seg Neutrophils # Seg Neutrophils # Man Lymphocytes # (Manual) POC ABG pCO2 POC ABG pO2 Chloride Creatinine Glucose POC Glucose 151 H 152 H 142 H Lactic Acid AST ALT Alkaline Phosphatase Albumin 07/21/17 07/21/17 07/21/17 14:43 14:43 16:55 WBC 11.9 H RBC 5.28 H Hct 43.9 H D MCH 26 L Lymph % (Auto) 7.4 L Lymph # 0.9 L [place] # Seg Neutrophils % 89.9 H Seg Neuts % (Manual) Lymphocytes % (Manual) Seg Neutrophils # 10.7 H Seg Neutrophils # Man Lymphocytes # (Manual) POC ABG pCO2 POC ABG pO2 Chloride Creatinine Glucose POC Glucose 190 H Lactic Acid AST ALT 78 H Alkaline Phosphatase Albumin 3.8 L 07/21/17 07/22/17 07/22/17 23:06 06:24 07:40 WBC RBC Hct MCH Lymph % (Auto) Lymph # [place] # Seg Neutrophils % Seg Neuts % (Manual) Lymphocytes % (Manual) Seg Neutrophils # Seg Neutrophils # Man Lymphocytes # (Manual) POC ABG pCO2 POC ABG pO2 Chloride Creatinine Glucose POC Glucose 187 H 225 H 223 H Lactic Acid AST ALT Alkaline Phosphatase Albumin
[2017-07-22] MEDS: PERCOCET 5/325 PO PRN (14:09)
--- NOTE | 2017-07-22 15:18 | Query-Infection ---
Dear Vivienne Date:____07/22/17 Program Production Specialist/CDS:____Alysait Phone#:___[phone] Exercise your independent professional judgment when responding to this query. Questions asked do not imply a particular answer is desired or expected. We greatly appreciate your clarification on this issue. Clinical Documentation States: 62 year old female was admitted on 07/18/17 The discharge summary (Dr. Palafox) states " 62-year-old woman with history of COPD, hypertension, seizure, diabetes, asthma, breast cancer comes emergency room with complaints of shortness of breath and cough productive of yellow phlegm --Acute pneumonitis; IV antibiotics, supportive care --Lactic acidosis; trending down, due to acute pneumonitis " WBC: 19.1 (07/18/17) Lactic acid: 3.8 (07/18/17) Pulse rate: 116 (07/18/17) Respiratory rate: 35 (07/18/17) Clinical findings show: (please check applicable parameters) Infection, known /suspected, with some of the following indicators; Specify the infection: 3 General parameters [ ] Fever (core temp >38.30C or 100.40F) [ ] Hypothermia (core temp <36C) [x ] Heart rate >90 bpm [x ] Tachypnea: >20 bpm or pCO2 < 32 mmHg [ ] Altered mental status [ ] Significant edema / +ve fluid balance (>20 ml/kg 24 h) [ ] Hyperglycemia (Bl. glucose >110 mg/dl) w/o diabetes Inflammatory parameters [x ] Leukocytosis (white blood cell count >12,000/l) [ ] Leukopenia (white blood cell count <4,000/l) [ ] Bandemia (immature WBC > 10%) [ ] Leucocyte Left Shift [ ] Plasma procalcitonin>2 SD above the normal value Hemodynamic and tissue perfusion parameters [ ] Arterial hypotension(SBP <90 mmHg, MAP <70 mmHg,or a SBP drop >40 mmHg in adults) [ ] Hyperlactatemia (>3 mmol/l) [ ] Anion Gap (> 11mEG/l) [ ] Decreased capillary refill or mottling Organ dysfunction parameters [ ] Arterial hypoxemia (PaO2/FIO2 <300) [ ] Creatinine increase =0.5 mg/dl [ ] Acute oliguria (urine output <0.5 ml | kg |h or 45 mM/l for at least 2 hrs) [ ] Coagulation abnormalities (INR >1.5 or activated partial thromboplastin time >60 s) [ ] Ileus (absent arvin wel sounds) [ ] Thrombocytopenia (platelet count <100,000/l) [ ] Hyperbilirubinemia (plasma total bilirubin >4 mg/dl) According to the clinical indications above, can Bacteremia be further specified? If so, please indicate below and in your Progress Notes and/ or Discharge Summary. Indicate if the condition was present on admission. PHYSICIAN RESPONSE: [ x] Sepsis [ ] Severe Sepsis [ ] Septic Shock [ ] Septicemia [ ] Sepsis now resolved [ ] SIRS due to non-infectious cause with organ dysfunction [ ] SIRS due to non-infectious cause without organ dysfunction [ ] Other: [ ] Comment/Explanation: Present on Admission: [ x] Yes (Y) [ ] Clinically undeterminable (W) [ ] No (N) [ ] Ruled Out Please also document response in your Progress Notes and/or Discharge Summary and indicate if the condition was present on admission Notes: SIRS/ SIRS WITH ORGAN DYSFUNCTION Systemic inflammatory response syndrome (SIRS) generally refers to the systemic response to trauma/vazquez or other insult such as Acute Myocardial Infarction, Acute Pancreatitis, and Major Surgery with symptoms including fever, tachycardia , tachypnea, and leukocytosis (1). BACTEREMIA Presence of viable bacteria in the circulating blood (2). This term is reserved for patients that do not manifest above SIRS response. SEPTICEMIA Generally refers to a systemic disease associated with the presence of pathological microorganisms or toxins in the blood, which can include bacteria, viruses, fungi or other organisms (1). SEPSIS Generally refers to SIRS due infection (1). SEVERE SEPSIS Generally refers to sepsis associated with acute organ dysfunction (1). SEPTIC SHOCK Generally refers to circulatory failure associated with severe sepsis (2), and defined as hypotension or hypoperfusion despite adequate fluid resuscitation (1 hour) (3). REFERENCES: 1. [place] [employer]/Society of Critical Care Medicine Consensus Conference. Definitions for sepsis and organ failure and guidelines for the use of innovative therapies in sepsis. Critical Care Med 1992;20:864 - 74. 2. Shimon watkins MM, Tej MP, Reyes LEDEZMA, Akshat E, Kai D, Julio D, Jaime J, Tori SM , Tab JL, Jerry G; International Sepsis Definitions Conference. 2000 SCCM/ESICM/ACCP/ATS/SIS International Sepsis Definitions Conference. Intensive Care Med. 2003 Apr;29(4):530-8. Epub 2002Jul 29. Review. PubMed PMID:[id number] 3. ICD-9-CM Official Guidelines for Coding and Reporting 4. Medscape Drugs, Diseases and Procedures references 5. [employer] Textbook of Internal Medicine. 18th Edition MTDD
[2017-07-22 21:35] VITALS: BP 156/84
== END 2017-07-22 21:30 | disposition hospice, inpatient (51) | DRG 871 ==
LOC: ED 09:10 → 4A 15:07
PROVIDERS: ADMIT Internal Medicine; ATTEND Internal Medicine
PROC: 4A033R1 Measurement of Arterial Saturation, Peripheral, Percutaneous Approach (ICD-10-PCS; principal; 2017-07-18)
PROC: 5A09357 Assistance with Respiratory Ventilation, Less than 24 Consecutive Hours, Continuous Positive Airway Pressure (ICD-10-PCS; 2017-07-18)
PROC: 5A09457 Assistance with Respiratory Ventilation, 24-96 Consecutive Hours, Continuous Positive Airway Pressure (ICD-10-PCS; 2017-07-18)
DX: A41.9 Sepsis, unspecified organism (principal); J18.9 Pneumonia, unspecified organism; J96.21 Acute and chronic respiratory failure with hypoxia; J96.22 Acute and chronic respiratory failure with hypercapnia; G93.40 Encephalopathy, unspecified; J44.1 Chronic obstructive pulmonary disease with (acute) exacerbation; I50.9 Heart failure, unspecified; I11.0 Hypertensive heart disease with heart failure; E11.9 Type 2 diabetes mellitus without complications; G89.29 Other chronic pain; G40.909 Epilepsy, unspecified, not intractable, without status epilepticus; F41.1 Generalized anxiety disorder; J44.9 Chronic obstructive pulmonary disease, unspecified; Z86.718 Personal history of other venous thrombosis and embolism; Z90.710 Acquired absence of both cervix and uterus; Z88.8 Allergy status to other drugs, medicaments and biological substances; Z79.899 Other long term (current) drug therapy; Z85.3 Personal history of malignant neoplasm of breast; Z82.49 Family history of ischemic heart disease and other diseases of the circulatory system; Z86.73 Personal history of transient ischemic attack (TIA), and cerebral infarction without residual deficits; I25.2 Old myocardial infarction; Z90.11 Acquired absence of right breast and nipple
CPT/HCPCS: 36415; 36600; 71045; 71275; 80048; 80053; 80074; 81001; 82140; 82803; 82805; 82962; 83735; 83880; 85007; 85025; 85379; 85610; 86140; 87040; 87086; 93005; 93010; 94640; 94660; 94760; 96361; 96374; 96375; 99291; J0360; J0456; J1650; J1815; J2060; J2543; J2930; J7030; J7050; Q9967